=== PATIENT | male | born 1935 | race Two or more races ===

== ENCOUNTER 2019-01-23 23:19 | Inpatient (IN) | payer MEDICARE, OTHER ==
[~2019-01-23] VITALS: Ht 167.6 cm; Wt 56.7 kg
--- NOTE | 2019-01-23 23:55 | NUR ---
PT BIBRA FROM HOME FOR FLU LIKE SYMPTOMS. PER EMS, PT DX WITH UTI. PT AOX4. PT C/O SOB. PT ON MONITOR IN BED 4. GRANDSON AT BEDSIDE. WILL CONTINUE TO MONITOR.
--- NOTE | 2019-01-24 00:28 | NUR ---
LU[facility] ([facility]) [phone]
[2019-01-24] MEDS ORDERED: IPRATROPIUM NEB FS 0.5 MG/2.5 ML AMPUL.NEB NEB ONE (00:30)
[2019-01-24] MEDS ORDERED: ONDANSETRON HCL/PF - ER 4 MG/2 ML VIAL IV ONE (00:30)
[2019-01-24] MEDS ORDERED: ALBUTEROL FS 2.5 MG/3 ML VIAL.NEB NEB ONE (00:30)
[2019-01-24] MEDS ORDERED: ONDANSETRON HCL/PF 4 MG/2 ML VIAL ONE (00:33)
--- NOTE | 2019-01-24 00:49 | NUR ---
BLOOD DRAWN AND GIVEN TO LAB
--- NOTE | 2019-01-24 00:50 | NUR ---
TECH AT BEDSIDE FOR EKG
--- NOTE | 2019-01-24 00:52 | NUR ---
SHARI LEFT AND ASKED TO BE NOTIFIED ON ANY CHANGE OF CONDITION
[2019-01-24 00:55] LABS: BASOPHILS # (AUTO) 0.1 /CMM (0.0-0.2); BASOPHILS % (AUTO) 0.6 % (0.0-2.0); EOSINOPHILS % (AUTO) 4.9 % (0.0-6.0); HEMATOCRIT 33 % (39-51); LYMPHOCYTES # (AUTO) 1.1 /CMM (0.8-4.8); LYMPHOCYTES % (AUTO) 10.8 % (20.0-44.0); MEAN CORPUSCULAR HGB CONC 33 g/dl (31.0-36.0); MEAN CORPUSCULAR VOLUME 85 fL (80-96); MONOCYTES # (AUTO) 0.9 /CMM (0.1-1.30); MONOCYTES % (AUTO) 9.2 % (2.0-12.0); NEUTROPHILS # (AUTO) 7.5 /CMM (1.8-8.9); NEUTROPHILS % (AUTO) 74.5 % (43.0-81.0); PLATELET COUNT (AUTO) 207 /CMM (150-450); RED BLOOD CELL COUNT(AUTO) 3.93 MIL/uL (4.5-6.0); WHITE BLOOD COUNT (AUTO) 10.1 K/uL (4.3-11.0)
--- NOTE | 2019-01-24 00:55 | NUR ---
PT TAKEN TO RADIOLOGY VIA [facility]
[2019-01-24] MEDS ORDERED: IPRATROPIUM NEB FS 0.5 MG/2.5 ML AMPUL.NEB ONE (00:57)
[2019-01-24] MEDS ORDERED: ALBUTEROL FS 2.5 MG/3 ML VIAL.NEB ONE (00:57)
[2019-01-24 00:58] LABS: APPEARANCE,URINE Clear (CLEAR); BILIRUBIN,URINE Negative (NEGATIVE); BLOOD, URINE Negative Ery/uL (NEGATIVE); COLOR,URINE Yellow (YELLOW); KETONES,URINE Trace (NEGATIVE); LEUKOCYTE ESTERASE ,URINE Negative (NEGATIVE); NITRITE, URINE Negative (NEGATIVE); PROTEIN,URINE 30 mg/dl (NEGATIVE); UGLUCOSE Negative (NEGATIVE); UROBILINOGEN,URINE 0.2 EU/dL (0.2)
[2019-01-24 01:06] LABS: CALCIUM, SERUM 8.9 mg/dL (8.5-10.1); CARBON DIOXIDE 26 mmol/L (21-32); CHLORIDE 106 mmol/L (98-107); CREATININE 1.1 mg/dL (0.6-1.3); GLUCOSE 109 mg/dL (74-106); POTASSIUM 3.9 mmol/L (3.5-5.1); SODIUM SERUM 142 mmol/L (136-145); UREA NITROGEN, BLOOD 33 mg/dL (7-18)
--- NOTE | 2019-01-24 01:08 | NUR ---
PT RETURNED FROM CT. PT TOLERATED WELL.
[2019-01-24 01:12] LABS: ALANINE AMINOTRANSFERASE 46 U/L (12-78); ALBUMIN 3.6 g/dL (3.4-5.0); ALKALINE PHOSPHATASE 82 U/L (46-116); ASPARTATE AMINOTRANSFERASE 42 U/L (15-37); BILIRUBIN,TOTAL 0.2 mg/dL (0.2-1.0); TOTAL PROTEIN, SERUM 7.7 g/dL (6.4-8.2)
--- NOTE | 2019-01-24 01:12 | NUR ---
RT AT BEDSIDE FOR BREATHING TREATMENT
[2019-01-24 01:23] LABS: BACTERIA,URINE None seen /HPF (None Seen); MUCUS,URINE Few /LPF (None Seen); RBC,URINE 0-2 /HPF (0-2); SQUAMOUS EPITHELIAL CELL,UR Few /HPF (None Seen); WBC,URINE 0-2 /HPF (0-3)
[2019-01-24] MEDS ORDERED: IV NS 0.9% 1,000 ML BAG IV ONE (01:30)
[2019-01-24] MEDS ORDERED: LEVOFLOXACIN 750 MG /D5W 150ML PIGGYBACK IV ONE (04:00)
--- NOTE | 2019-01-24 04:12 | NUR ---
REPORT GIVEN TO BUTCH HILL FOR KARIN
[2019-01-24] MEDS ORDERED: LEVOFLOXACIN 750 MG /D5W 150ML 150 ML IV ONE (04:22)
[2019-01-24 05:30] VITALS: BP 151/72
[2019-01-24] MEDS ORDERED: ONDANSETRON HCL/PF 4 MG/2 ML VIAL IV PRN (06:30)
[2019-01-24] MEDS ORDERED: ACETAMINOPHEN 325 MG TABLET PO PRN (06:30)
--- NOTE | 2019-01-24 07:30 | NUR ---
RN NOTES: -AT 0405 RECEIVED ENDORSEMENT FROM EDWARD/RN/ER,RECEIVED ZOFRAN, N/S 1,000 ML,LEVAQUIN 750 MG, ATROVENT AND VENTOLIN. - ADMITTED 83 Y.O., MALE, ITALIAN SPEAKING, AT 0530 VIA GURNEY FROM HOME, WITH C/O FLU LIKE SYMPTOM X 3 DAYS AND PAINFUL URINATION X 1 WEEK, DX: COPD EXACERBATION, ON O2 AT 2L/MIN, SPO2-95% , A/O 3-4, ORIENTED TO UNIT AND STAFF, FALL,SAFETY AND ASPIRATION PRECAUTION OBSERVED, BED LOW AND LOCKED, CALL LIGHT WITHIN EASY REACH, ON CARDIAC DIET, IV CANNULA LAC G#20, FOR BLOOD TEST CBC,BMP, MG. WHEEZING NOTED ON BOTH UPPER LUNG FIELD, HE HAS SOB ON EXERTION.ENDORSED FOR CONTINUITY OF CARE.
[2019-01-24] MEDS: IPRATROPIUM NEB FS 0.5 MG/2.5 ML AMPUL.NEB NEB SCH ×3 (07:31→19:32)
[2019-01-24] MEDS: ALBUTEROL FS 2.5 MG/3 ML VIAL.NEB NEB SCH ×3 (07:31→19:32)
--- NOTE | 2019-01-24 07:35 | NUR ---
RN OPENING NOTES RECEIVED PATIENT IN BED SLEEPING COMFORTABLY. EASILY AROUSABLE. ALERT AND ORIENTED X3-4. MOHAWK SPEAKING. ABLE TO MAKE NEEDS KNOWN. NO PAIN OR ACUTE DISTRESS AT THIS TIME. RESPIRATION EVEN AND UNLABORED. NO SOB. SKIN IS DRY WARM TO TOUCH. IV ACCESS ON LEFT AC INTACT AND PATENT. FLUSHING WELL. ALL NEEDS ANTICIPATED. KEPT CLEAN AND DRY. CALL LIGHT WITHIN REACHED. SAFETY MEASURES OBSERVED. BED LOCKED AND IN LOWEST POSITION. PLAN OF CARE DISCUSSED. WILL CONTINUE TO MONITOR.
[2019-01-24 07:43] LABS: BASOPHILS % (AUTO) 0.6 % (0.0-2.0); EOSINOPHILS % (AUTO) 4.5 % (0.0-6.0); HEMATOCRIT 26 % (39-51); HEMOGLOBIN 8.8 g/dL (13.5-17.5); LYMPHOCYTES % (AUTO) 14.9 % (20.0-44.0); MEAN CORPUSCULAR HGB CONC 34 g/dl (31.0-36.0); MEAN CORPUSCULAR VOLUME 84 fL (80-96); MONOCYTES # (AUTO) 0.7 /CMM (0.1-1.30); MONOCYTES % (AUTO) 10.9 % (2.0-12.0); NEUTROPHILS # (AUTO) 4.5 /CMM (1.8-8.9); NEUTROPHILS % (AUTO) 69.1 % (43.0-81.0); PLATELET COUNT (AUTO) 156 /CMM (150-450); RED BLOOD CELL COUNT(AUTO) 3.11 MIL/uL (4.5-6.0); WHITE BLOOD COUNT (AUTO) 6.5 K/uL (4.3-11.0)
[2019-01-24] MEDS: methylPREDNISolone SOD SUCC 40 MG/ML VIAL IV SCH ×3 (07:45→21:01)
[2019-01-24 07:53] LABS: CALCIUM, SERUM 8.1 mg/dL (8.5-10.1); CARBON DIOXIDE 24 mmol/L (21-32); CHLORIDE 108 mmol/L (98-107); CREATININE 0.9 mg/dL (0.6-1.3); GLUCOSE 76 mg/dL (74-106); MAGNESIUM 1.6 mg/dL (1.8-2.4); POTASSIUM 3.8 mmol/L (3.5-5.1); SODIUM SERUM 141 mmol/L (136-145); UREA NITROGEN, BLOOD 27 mg/dL (7-18)
[2019-01-24 07:57] VITALS: BP 122/75
[2019-01-24 08:00] VITALS: BP 122/75
[2019-01-24] MEDS: PANTOPRAZOLE 40 MG TABLET.DR PO SCH (08:43)
[2019-01-24] MEDS: ENOXAPARIN SODIUM 40 MG/0.4 ML DISP.SYRIN SQ SCH (08:44)
[2019-01-24] MEDS ORDERED: GABA-534 PO (08:51)
[2019-01-24] MEDS ORDERED: MIRT30TA7 PO (08:51)
[2019-01-24] MEDS ORDERED: MEMA10TA PO (08:51)
[2019-01-24] MEDS ORDERED: ESCI10TA PO (08:51)
[2019-01-24] MEDS ORDERED: CYAN10006 IJ (08:51)
[2019-01-24] MEDS ORDERED: CHOL100040 PO (08:51)
[2019-01-24] MEDS ORDERED: ALBU18HF2 IH (08:51)
[2019-01-24] MEDS ORDERED: ALBU2SYR3 PO (08:51)
[2019-01-24] MEDS ORDERED: RANI150C4 PO (08:51)
[2019-01-24] MEDS ORDERED: LORA-259 PO (08:51)
[2019-01-24] MEDS ORDERED: MELO-105 PO (08:51)
[2019-01-24] MEDS ORDERED: TRAZ-182 PO (08:51)
[2019-01-24] MEDS ORDERED: UMEC1BLS IH (08:51)
[2019-01-24] MEDS ORDERED: MEGE40TA PO (08:51)
[2019-01-24] MEDS ORDERED: LORAZEPAM 1 MG TABLET PO PRN (10:30)
[2019-01-24] MEDS: Magnesium 1GM/D5W 100ML PREMIX 100 ML IV SCH ×2 (10:36→11:33)
[2019-01-24] MEDS: MELOXICAM 7.5 MG TABLET PO SCH (11:01)
[2019-01-24] MEDS: MEGESTROL ACETATE 40 MG TABLET PO SCH (11:01)
[2019-01-24] MEDS: ESCITALOPRAM OXALATE (10 MG) 10 MG TABLET PO SCH (11:02)
[2019-01-24] MEDS: MEMANTINE HCL 5 MG TABLET PO SCH (11:02)
[2019-01-24] MEDS: GABAPENTIN 300 MG CAPSULE PO SCH (11:02)
[2019-01-24] MEDS: CHOLECALCIFEROL 1,000 UNIT TABLET (VIT D3) PO SCH (11:02)
[2019-01-24] MEDS ORDERED: ALBUTEROL FS 2.5 MG/0.5 ML VIAL.NEB NEB PRN (13:30)
[2019-01-24 16:00] VITALS: BP 123/67
--- NOTE | 2019-01-24 18:26 | NUR ---
RN CLOSING NOTES PATIENT IN BED RESTING COMFORTABLY. PATIENT ABLE TO TOLERATE MEALS AND MEDS WELL. NO PAIN OR ACUTE DISTRESS AT THIS TIME. RESPIRATION EVEN AND UNLABORED. SKIN IS DRY WARM TO TOUCH. IV ACCESS ON LEFT FOREARM INTACT AND PATENT. PATIENT REMAINED STABLE THROUGHOUT THE SHIFT. ALL NEEDS ANTICIPATED. KEPT CLEAN AND DRY. CALL LIGHT WITHIN REACHED. BED LOCKED AND IN LOWEST POSITION. SAFETY MEASURES OBSERVED. ENDORSED TO PM NURSE FOR KARIN.
--- NOTE | 2019-01-24 19:45 | NUR ---
MS1 RN NOTES RECEIVED ON BED ON SITTING POSITION,BREATHING NON LABORED,O2 IN USED AT 2L/NC TO KEEP O2 SAT ABOVE 90%.SALINE LOCK LEFT FORE ARM INTACT AND PATENT.SPEAK BOLIVIAN,FAMILY MEMBERS AT BEDSIDE.RT AT BEDSIDE ADMINISTERING BREATHING TREATMENT SCHEDULED.IN NO ACUTE DISTRESS.WILL CONTINUE TO MONITOR STATUS.
[2019-01-24 20:00] VITALS: BP 130/66
--- NOTE | 2019-01-24 21:00 | NUR ---
MS1 RN NOTES DUE PO MEDS GIVEN,TAKEN WELL
[2019-01-24] MEDS: FAMOTIDINE (20 MG) 20 MG TABLET PO SCH (21:02)
[2019-01-24] MEDS: TRAZODONE 50 MG TABLET PO SCH (22:07)
--- NOTE | 2019-01-25 | NUR ---
MS1 RN NOTES SLEEPING THIS TIME,KEPT WARM AND COMFORTABLE.
[2019-01-25] MEDS: IPRATROPIUM NEB FS 0.5 MG/2.5 ML AMPUL.NEB NEB SCH ×4 (01:56→19:52)
[2019-01-25] MEDS: ALBUTEROL FS 2.5 MG/3 ML VIAL.NEB NEB SCH ×4 (01:57→19:52)
[2019-01-25 04:00] VITALS: BP 115/70
[2019-01-25] MEDS: methylPREDNISolone SOD SUCC 40 MG/ML VIAL IV SCH ×3 (05:10→21:23)
[2019-01-25] MEDS: LEVOFLOXACIN 750 MG /D5W 150ML 750 MG in PREMIX 1 EA IV SCH (06:15)
--- NOTE | 2019-01-25 06:34 | NUR ---
MS 1 RN NOTES TRANSFERRED TO ROOM 109 TO ACCOMMODATE FAMILY MEMBER.NO SIGNIFICANT CHANGE IN STATUS.BREATHING TREATMENT TOLERATED WELL.NO EPISODE OF SOB NOTED.IVF LEVAQUIN INFUSING AT THIS TIME VIA IV PUMP,SITE REMAINS PATENT.NO FALL,NO INJURY.CALL LIGHT IN REACH,NEEDS ATTENDED.WILL ENDORSE TO DAY NURSE FOR KARIN.
[2019-01-25 08:00] VITALS: BP 135/61
[2019-01-25] MEDS: FLUTICASONE/VILANTEROL 1 EACH BLST.W.DEV IH SCH (09:29)
[2019-01-25] MEDS: ESCITALOPRAM OXALATE (10 MG) 10 MG TABLET PO SCH (09:32)
[2019-01-25] MEDS: GABAPENTIN 300 MG CAPSULE PO SCH (09:32)
[2019-01-25] MEDS: MEGESTROL ACETATE 40 MG TABLET PO SCH (09:32)
[2019-01-25] MEDS: PANTOPRAZOLE 40 MG TABLET.DR PO SCH (09:32)
[2019-01-25] MEDS: MIRTAZAPINE 15 MG TABLET PO SCH (09:32)
[2019-01-25] MEDS: FAMOTIDINE (20 MG) 20 MG TABLET PO SCH ×2 (09:32→21:23)
[2019-01-25] MEDS: MEMANTINE HCL 5 MG TABLET PO SCH (09:32)
[2019-01-25] MEDS: MELOXICAM 7.5 MG TABLET PO SCH (09:32)
[2019-01-25] MEDS: CHOLECALCIFEROL 1,000 UNIT TABLET (VIT D3) PO SCH (09:32)
[2019-01-25] MEDS: ENOXAPARIN SODIUM 40 MG/0.4 ML DISP.SYRIN SQ SCH (09:33)
[2019-01-25 10:38] LABS: BASOPHILS % (AUTO) 0.1 % (0.0-2.0); HEMATOCRIT 28 % (39-51); HEMOGLOBIN 9.5 g/dL (13.5-17.5); LYMPHOCYTES % (AUTO) 9.6 % (20.0-44.0); MEAN CORPUSCULAR HGB CONC 34 g/dl (31.0-36.0); MEAN CORPUSCULAR VOLUME 84 fL (80-96); MONOCYTES # (AUTO) 0.9 /CMM (0.1-1.30); MONOCYTES % (AUTO) 9.4 % (2.0-12.0); NEUTROPHILS % (AUTO) 80.9 % (43.0-81.0); PLATELET COUNT (AUTO) 168 /CMM (150-450); RED BLOOD CELL COUNT(AUTO) 3.35 MIL/uL (4.5-6.0); WHITE BLOOD COUNT (AUTO) 9.9 K/uL (4.3-11.0)
[2019-01-25 10:47] LABS: CALCIUM, SERUM 8.5 mg/dL (8.5-10.1); CARBON DIOXIDE 25 mmol/L (21-32); CHLORIDE 105 mmol/L (98-107); CREATININE 0.9 mg/dL (0.6-1.3); GLUCOSE 105 mg/dL (74-106); POTASSIUM 4.2 mmol/L (3.5-5.1); SODIUM SERUM 138 mmol/L (136-145); UREA NITROGEN, BLOOD 30 mg/dL (7-18)
[2019-01-25 12:00] VITALS: BP 123/70
[2019-01-25 16:00] VITALS: BP 113/64
--- NOTE | 2019-01-25 19:20 | NUR ---
MS RN NOTE PATIENT REPORT GIVEN BEDSIDE. PATIENT DENIES ANY S/S OF DISTRESS. NO C/P/SOB//PAIN NOTED. PATIENT SITTING UP IN BED A/0 X 4. PATIENT WATCHING TV. PATIENT HAS NO REQUESTS AT THIS TIME. SAEFTY PRECAUTIONS IN PLACE SIDE RAILS UP X 2, BED LOWEST LOCKED POSITION. RN WILL CONTINUE TO MONITOR FOR CHANGES.
[2019-01-25 20:00] VITALS: BP 143/82
[2019-01-25] MEDS: TRAZODONE 50 MG TABLET PO SCH (21:23)
[2019-01-26] VITALS: BP 135/70
[2019-01-26] MEDS: IPRATROPIUM NEB FS 0.5 MG/2.5 ML AMPUL.NEB NEB SCH ×4 (01:30→19:48)
[2019-01-26] MEDS: ALBUTEROL FS 2.5 MG/3 ML VIAL.NEB NEB SCH ×4 (01:30→19:48)
--- NOTE | 2019-01-26 02:12 | NUR ---
PT REFUSED Addendum: 01/26/19 at 0213 by STEVO JIMENEZ Amended: Links added.
--- NOTE | 2019-01-26 02:50 | NUR ---
MS RN NOTE BOTH PT IV SITES LEAKING, 22 G IN L HAND/ 20 G IN RFA, PLACED A NEW IV 20 G IN EFRA. NO S/S OF INFECTION/INFILTRATION.
[2019-01-26] MEDS: methylPREDNISolone SOD SUCC 40 MG/ML VIAL IV SCH ×3 (05:09→20:33)
[2019-01-26 06:47] LABS: BASOPHILS % (AUTO) 0.1 % (0.0-2.0); HEMATOCRIT 31 % (39-51); HEMOGLOBIN 10.2 g/dL (13.5-17.5); LYMPHOCYTES # (AUTO) 0.6 /CMM (0.8-4.8); LYMPHOCYTES % (AUTO) 7.3 % (20.0-44.0); MEAN CORPUSCULAR HGB CONC 33 g/dl (31.0-36.0); MEAN CORPUSCULAR VOLUME 84 fL (80-96); MONOCYTES # (AUTO) 0.1 /CMM (0.1-1.30); MONOCYTES % (AUTO) 1.3 % (2.0-12.0); NEUTROPHILS % (AUTO) 91.3 % (43.0-81.0); PLATELET COUNT (AUTO) 174 /CMM (150-450); RED BLOOD CELL COUNT(AUTO) 3.64 MIL/uL (4.5-6.0); WHITE BLOOD COUNT (AUTO) 7.6 K/uL (4.3-11.0)
--- NOTE | 2019-01-26 07:30 | NUR ---
MS/RN OPENING NOTE THE PATIENT IS RECEIVED IN BED. ALERT AND ORIENTED X3. ABLE TO MAKE NEEDS KNOWN VERBALLY. RECEIVING OXYGEN AT 2L/MIN VIA NASAL CANNULA AND DENIES SOB. RESPIRATION REGULAR AND UNLABORED. DENIES PAIN. THE PATIENT IS IN NO APPARENT DISTRESS. LFA G 22 PATENT AND SALINE LOCKED. BED LOW AND LOCKED. SIDE RAILS UP X3. CALL LIGHT WITHIN REACH. WILL CONTINUE TO MONITOR.
[2019-01-26 08:00] VITALS: BP 123/71
--- NOTE | 2019-01-26 08:11 | NUR ---
MS/RN NOTE PATIENT IS SEEN BY DR VARGAS WITH NEW ORDER FOR RESTORIL 15 MG HS PRN. NOTED AND CARRIED OUT.
[2019-01-26 08:26] LABS: CARBON DIOXIDE 26 mmol/L (21-32); CHLORIDE 103 mmol/L (98-107); CREATININE 1.2 mg/dL (0.6-1.3); GLUCOSE 132 mg/dL (74-106); POTASSIUM 4.6 mmol/L (3.5-5.1); SODIUM SERUM 139 mmol/L (136-145); UREA NITROGEN, BLOOD 37 mg/dL (7-18)
[2019-01-26] MEDS: MEMANTINE HCL 5 MG TABLET PO SCH (08:29)
[2019-01-26] MEDS: MEGESTROL ACETATE 40 MG TABLET PO SCH (08:29)
[2019-01-26] MEDS: GABAPENTIN 300 MG CAPSULE PO SCH (08:29)
[2019-01-26] MEDS: CHOLECALCIFEROL 1,000 UNIT TABLET (VIT D3) PO SCH (08:29)
[2019-01-26] MEDS: FLUTICASONE/VILANTEROL 1 EACH BLST.W.DEV IH SCH (08:29)
[2019-01-26] MEDS: PANTOPRAZOLE 40 MG TABLET.DR PO SCH (08:30)
[2019-01-26] MEDS: FAMOTIDINE (20 MG) 20 MG TABLET PO SCH ×2 (08:30→20:34)
[2019-01-26] MEDS: MELOXICAM 7.5 MG TABLET PO SCH (08:30)
[2019-01-26] MEDS: MIRTAZAPINE 15 MG TABLET PO SCH (08:30)
[2019-01-26] MEDS ORDERED: TEMAZEPAM 15 MG CAPSULE PO PRN (08:30)
[2019-01-26] MEDS: ESCITALOPRAM OXALATE (10 MG) 10 MG TABLET PO SCH (08:30)
[2019-01-26] MEDS: ENOXAPARIN SODIUM 40 MG/0.4 ML DISP.SYRIN SQ SCH (08:42)
[2019-01-26 16:00] VITALS: BP_SYST 134; BP_SYST 99; BP_DIAS 72; BP_DIAS 82
--- NOTE | 2019-01-26 16:28 | NUR ---
MS/RN NOTE PER PATIENT REQUEST DIET TE[facility] PER DR VARGAS ORDER. NOTED AND CARRIED OUT.
[2019-01-26 16:58] VITALS: BP 103/72
--- NOTE | 2019-01-26 18:32 | NUR ---
MS/RN CLOSING NOTE THE PATIENT ALERT AND ORIENTED X3. RECEIVING OXYGEN 2L/MIN VIA NASAL CANNULA AND SATURATION IS AT 95%. DENIES SOB. RESPIRATION REGULAR AND UNLABORED. DENIES PAIN. THE PATIENT IS IN NO APPARENT DISTRESS. LFA G 22 PATENT AND SALINE LOCKED. BED LOW AND LOCKED. SIDE RAILS UP X3. CALL LIGHT WITHIN REACH. BED ALARM ON. WILL ENDORSE TO PORTABLE MACHINE CUTTER.
--- NOTE | 2019-01-26 19:48 | NUR ---
MS RN NOTES RECEIVED PATIENT AWAKE IN BED WITH NO DISTRESS NOTED. CALL LIGHT WITHIN REACH. PERIPHERAL LINE INTACT AND PATENT. NO C/O PAIN OR DISCOMFORT. ENCOURAGED USE OF CALL LIGHT FOR ASSISTANCE AND VERBALIZED GOOD UNDERSTANDING. BED IN LOW LOCK SETTING. BED ALARM ON AND FUNCTIONING PROPERLY. ROOM FREE OF CALL LIGHT AND BELONGINGS KEPT NEAR BEDSIDE. WILL CONTINUE TO MONITOR.
[2019-01-26 20:00] VITALS: BP 110/59
[2019-01-26] MEDS: TRAZODONE 50 MG TABLET PO SCH (21:08)
[2019-01-27] VITALS: BP 110/59
[2019-01-27] MEDS: ALBUTEROL FS 2.5 MG/3 ML VIAL.NEB NEB SCH ×4 (01:30→19:06)
[2019-01-27] MEDS: IPRATROPIUM NEB FS 0.5 MG/2.5 ML AMPUL.NEB NEB SCH ×4 (01:30→19:06)
[2019-01-27 04:00] VITALS: BP 103/57
[2019-01-27] MEDS: methylPREDNISolone SOD SUCC 40 MG/ML VIAL IV SCH ×3 (06:02→20:27)
[2019-01-27] MEDS: LEVOFLOXACIN 750 MG /D5W 150ML 750 MG in PREMIX 1 EA IV SCH (06:02)
--- NOTE | 2019-01-27 06:24 | NUR ---
MS RN NOTES PATIENT ASLEEP IN BED WITH NO DISTRESS NOTED. CALL LIGHT WITHIN REACH. PERIPHERAL LINE INTACT AND PATENT. ALL DUE MEDS GIVEN ORDERED WITH NO ASE NOTED. NO C/O PAIN OR DISCOMFORT. BED IN LOW LOCK SETTING. BED ALARM ON AND FUNCTIONING PROPERLY. ALL BELONGINGS KEPT NEAR BEDSIDE. WILL ENDORSE TO ONCOMING SHIFT.
[2019-01-27 07:27] LABS: BASOPHILS % (AUTO) 0.1 % (0.0-2.0); HEMATOCRIT 31 % (39-51); HEMOGLOBIN 10.1 g/dL (13.5-17.5); LYMPHOCYTES # (AUTO) 0.5 /CMM (0.8-4.8); LYMPHOCYTES % (AUTO) 4.2 % (20.0-44.0); MEAN CORPUSCULAR HGB CONC 33 g/dl (31.0-36.0); MEAN CORPUSCULAR VOLUME 84 fL (80-96); MONOCYTES # (AUTO) 0.5 /CMM (0.1-1.30); NEUTROPHILS # (AUTO) 11.8 /CMM (1.8-8.9); NEUTROPHILS % (AUTO) 91.7 % (43.0-81.0); PLATELET COUNT (AUTO) 191 /CMM (150-450); RED BLOOD CELL COUNT(AUTO) 3.64 MIL/uL (4.5-6.0); WHITE BLOOD COUNT (AUTO) 12.8 K/uL (4.3-11.0)
--- NOTE | 2019-01-27 07:46 | NUR ---
MS RN NOTES RECEIVED PATIENT AWAKE,SITTING IN BED WITH NO SOB,PAIN OR DISTRESS NOTED.PERIPHERAL LINE INTACT AND PATENT. NO C/O PAIN OR DISCOMFORT. ENCOURAGED USE OF CALL LIGHT FOR ASSISTANCE AND VERBALIZED GOOD UNDERSTANDING. BED IN LOW LOCK SETTING. BED ALARM ON AND FUNCTIONING PROPERLY. CALL LIGHT PLACED WITHIN REACH.WILL CONTINUE TO MONITOR.
[2019-01-27 08:00] VITALS: BP 123/96
[2019-01-27] MEDS: MELOXICAM 7.5 MG TABLET PO SCH (08:21)
[2019-01-27] MEDS: MEMANTINE HCL 5 MG TABLET PO SCH (08:21)
[2019-01-27] MEDS: CHOLECALCIFEROL 1,000 UNIT TABLET (VIT D3) PO SCH (08:21)
[2019-01-27] MEDS: MIRTAZAPINE 15 MG TABLET PO SCH (08:21)
[2019-01-27] MEDS: PANTOPRAZOLE 40 MG TABLET.DR PO SCH (08:21)
[2019-01-27] MEDS: FAMOTIDINE (20 MG) 20 MG TABLET PO SCH ×2 (08:21→20:28)
[2019-01-27] MEDS: GABAPENTIN 300 MG CAPSULE PO SCH (08:21)
[2019-01-27] MEDS: MEGESTROL ACETATE 40 MG TABLET PO SCH (08:21)
[2019-01-27] MEDS: ESCITALOPRAM OXALATE (10 MG) 10 MG TABLET PO SCH (08:21)
[2019-01-27] MEDS: ENOXAPARIN SODIUM 40 MG/0.4 ML DISP.SYRIN SQ SCH (08:22)
[2019-01-27] MEDS: FLUTICASONE/VILANTEROL 1 EACH BLST.W.DEV IH SCH (08:23)
[2019-01-27 16:00] VITALS: BP 119/73
--- NOTE | 2019-01-27 19:00 | NUR ---
PT SITTING IN BED DENYING ANY SOB, PAIN OR DISTRESS.CALL LIGHT PLACED WITHIN REACH.
--- NOTE | 2019-01-27 19:10 | NUR ---
MS RN OPENING NOTES Received patient A/Ox3, awake on Gardner's position on bed watching TV. With O2 inhalation via NC @ 2LPM, no SOB/respiratory distress noted. Patient able to communicate needs, denies discomfort at this time. With patent peripheral IV line LFA G#22, SL, no s/sx of infiltration noted. On fall precautions, call light within easy reach. Will continue to monitor accordingly.
[2019-01-27 20:00] VITALS: BP 119/75
[2019-01-27] MEDS: TRAZODONE 50 MG TABLET PO SCH (22:00)
[2019-01-28] MEDS: ALBUTEROL FS 2.5 MG/3 ML VIAL.NEB NEB SCH ×4 (00:56→19:55)
[2019-01-28] MEDS: IPRATROPIUM NEB FS 0.5 MG/2.5 ML AMPUL.NEB NEB SCH ×4 (00:57→19:55)
[2019-01-28 04:00] VITALS: BP 120/69
[2019-01-28] MEDS: methylPREDNISolone SOD SUCC 40 MG/ML VIAL IV SCH ×3 (05:10→21:20)
--- NOTE | 2019-01-28 07:07 | NUR ---
MS RN CLOSING NOTES Patient asleep comfortably on bed. No SOB/respiratory distress noted. All due meds given as ordered. No new unusualities noted. Afebrile the whole shift. On fall precautions. Call light within easy reach. Endorsed to the next shift.
[2019-01-28 08:00] VITALS: BP 140/80
[2019-01-28] MEDS: GABAPENTIN 300 MG CAPSULE PO SCH (09:38)
[2019-01-28] MEDS: MEGESTROL ACETATE 40 MG TABLET PO SCH (09:38)
[2019-01-28] MEDS: ESCITALOPRAM OXALATE (10 MG) 10 MG TABLET PO SCH (09:38)
[2019-01-28] MEDS: PANTOPRAZOLE 40 MG TABLET.DR PO SCH (09:38)
[2019-01-28] MEDS: MEMANTINE HCL 5 MG TABLET PO SCH (09:40)
[2019-01-28] MEDS: MELOXICAM 7.5 MG TABLET PO SCH (09:41)
[2019-01-28] MEDS: MIRTAZAPINE 15 MG TABLET PO SCH (09:41)
[2019-01-28] MEDS: FAMOTIDINE (20 MG) 20 MG TABLET PO SCH ×2 (09:42→21:21)
[2019-01-28] MEDS: ENOXAPARIN SODIUM 40 MG/0.4 ML DISP.SYRIN SQ SCH (09:44)
[2019-01-28] MEDS: CHOLECALCIFEROL 1,000 UNIT TABLET (VIT D3) PO SCH (10:07)
[2019-01-28 12:00] VITALS: BP 118/61
[2019-01-28] MEDS: FLUTICASONE/VILANTEROL 1 EACH BLST.W.DEV IH SCH (12:33)
[2019-01-28 16:00] VITALS: BP 118/80
--- NOTE | 2019-01-28 16:52 | NUR ---
resting comfortably with call light within reach.no complaints made .voidimg freel;y
--- NOTE | 2019-01-28 19:30 | NUR ---
RN OPEN NOTES RECEIVED PATIENT AWAKE IN BED. A/OX3. NO SIGNS OF DISTRESS OR DISCOMFORT. BREATHING EVEN AND UNLABORED. ON 2LPM O2 VIA NC. IV ACCESS IN LFA WITH LEVAQUIN INFUSING, PATENT AND INTACT, NO SIGNS OF REDNESS OR INFILTRATION. ALL NEEDS MET. NO SIGNIFICANT CHANGES THROUGH THE NIGHT. BED IN LOW LOCKED POSITION WITH SIDE RAILS X2. CALL LIGHT WITHIN REACH. PATIENT ADVISED TO USE CALL LIGHT FOR ASSISTANCE. WILL ENDORSE TO AM SHIFT FOR KARIN.
[2019-01-28 20:00] VITALS: BP 143/73
[2019-01-28] MEDS: TRAZODONE 50 MG TABLET PO SCH (21:21)
[2019-01-29] MEDS: ALBUTEROL FS 2.5 MG/3 ML VIAL.NEB NEB SCH ×4 (01:12→20:16)
[2019-01-29] MEDS: IPRATROPIUM NEB FS 0.5 MG/2.5 ML AMPUL.NEB NEB SCH ×4 (01:12→20:16)
[2019-01-29 04:00] VITALS: BP 138/62
[2019-01-29] MEDS: methylPREDNISolone SOD SUCC 40 MG/ML VIAL IV SCH ×3 (05:37→21:17)
[2019-01-29] MEDS: LEVOFLOXACIN 750 MG /D5W 150ML 750 MG in PREMIX 1 EA IV SCH (05:37)
--- NOTE | 2019-01-29 07:30 | NUR ---
RN OPENING NOTES RECEIVED PATIENT IN BED. PATIENT AWAKE AND ABLE TO MAKE NEEDS KNOWN. PATIENT ALERT AND ORIENTED X4. RESPIRATION EVEN AND UNLABORED. ON O2 VIA NASAL CANNULA. TOLERATED WELL. NO SOB. NO PAIN OR ACUTE DISTRESS AT THIS TIME. SKIN INTACT. NOTED WITH IV ACCESS ON LEFT FOREARM #22G. PATENT AND FLUSHING WELL. ALL NEEDS ANTICIPATED. KEPT CLEAN AND DRY. CALL LIGHT WITHIN REACHED. BED LOCKED AND IN LOWEST POSITION. SAFETY MEASURES OBSERVED. BED ALARM ARMED. GENE OF CARE DISCUSSED. WILL CONTINUE TO MONITOR CLOSELY.
[2019-01-29 08:00] VITALS: BP 139/74
[2019-01-29] MEDS: FLUTICASONE/VILANTEROL 1 EACH BLST.W.DEV IH SCH (08:13)
[2019-01-29] MEDS: FAMOTIDINE (20 MG) 20 MG TABLET PO SCH ×2 (08:14→21:18)
[2019-01-29] MEDS: ESCITALOPRAM OXALATE (10 MG) 10 MG TABLET PO SCH (08:14)
[2019-01-29] MEDS: MIRTAZAPINE 15 MG TABLET PO SCH (08:14)
[2019-01-29] MEDS: PANTOPRAZOLE 40 MG TABLET.DR PO SCH (08:14)
[2019-01-29] MEDS: CHOLECALCIFEROL 1,000 UNIT TABLET (VIT D3) PO SCH (08:14)
[2019-01-29] MEDS: GABAPENTIN 300 MG CAPSULE PO SCH (08:15)
[2019-01-29] MEDS: MELOXICAM 7.5 MG TABLET PO SCH (08:15)
[2019-01-29] MEDS: MEGESTROL ACETATE 40 MG TABLET PO SCH (08:15)
[2019-01-29] MEDS: MEMANTINE HCL 5 MG TABLET PO SCH (08:15)
[2019-01-29] MEDS: ENOXAPARIN SODIUM 40 MG/0.4 ML DISP.SYRIN SQ SCH (08:17)
[2019-01-29 16:00] VITALS: BP 114/71
--- NOTE | 2019-01-29 18:28 | NUR ---
RN CLOSING NOTES PATIENT IN BED AWAKE AND ABLE TO MAKE NEEDS KNOWN. PATIENT IS A/O X4. NO PAIN OR ACUTE DISTRESS AT THIS TIME. RESPIRATION EVEN AND UNLABORED. SKIN IS DRY WARM TO TOUCH. IV ACCESS ON LEFT FOREARM #22G INTACT AND PATENT. FLUSHING WELL. PATIENT WAS INFORMED ABOUT THE EGD ORDER FOR TOMORROW FROM DR. HILL. PATIENT WAS ABLE TO UNDERSTAND THE PROCEDURE AND SIGNED THE CONSENT FORM. SIGNED CONSENT FORM PLACE IN THE CHART THAT CHARGE NURSE CO-SIGNED. PATIENT WAS ALSO INFORMED ABOUT BEING NPO AFTER MIDNIGHT. PATIENT WAS ABLE TO UNDERSTAND. ALL NEEDS ANTICIPATED. KEPT CLEAN AND DRY. CALL LIGHT WITHIN REACHED. BED LOCKED AND IN LOWEST POSITION. BED ALARM ARMED. WILL CONTINUE TO MONITOR. ENDORSED TO PM NURSE FOR KARIN.
--- NOTE | 2019-01-29 19:49 | NUR ---
MS RN RECEIVE PT IN BED A/O X 3, RESPIRATIONS EVEN AND UNLABORED,STABLE, NO S/S OF DISTRESS, SAFETY MEASURES IN PLACE. WILL CONTINUE TO MONITOR
[2019-01-29 20:00] VITALS: BP 130/79
[2019-01-29] MEDS: TRAZODONE 50 MG TABLET PO SCH (21:17)
[2019-01-30] MEDS: ALBUTEROL FS 2.5 MG/3 ML VIAL.NEB NEB SCH ×4 (01:30→19:30)
[2019-01-30] MEDS: IPRATROPIUM NEB FS 0.5 MG/2.5 ML AMPUL.NEB NEB SCH ×4 (01:30→19:30)
[2019-01-30 04:00] VITALS: BP 121/62
[2019-01-30] MEDS: methylPREDNISolone SOD SUCC 40 MG/ML VIAL IV SCH ×2 (04:40→12:47)
--- NOTE | 2019-01-30 06:31 | NUR ---
MS RN ASLEEP AND EASILY AWAKEN, RESPIRATION EVEN AND UNLABORED, MAINTAINS NPO MIDNIGHT, NO C/O OF PAIN. KEPT CLEAN AND DRY AND COMFORTABLE. NEEDS ATTENDED AND ANTICIPATED, NURSING CARE RENDERED, OFFLOAD HEELS AND ELBOWS AT ALL TIMES. STABLE AND NO DISTRESS, NO ANESTHESIA SIGNED PT WANTS TO SIGN LATER AM BECAUSE HE SAID HE IS SLEEPING AND WANTED TO REST. SAFETY MEASURES AT ALL TIMES. ENDORSE TO THE NEXT SHIFT.
[2019-01-30 08:00] VITALS: BP 123/62
[2019-01-30] MEDS: MELOXICAM 7.5 MG TABLET PO SCH (09:00)
[2019-01-30] MEDS: PANTOPRAZOLE 40 MG TABLET.DR PO SCH (09:00)
[2019-01-30] MEDS: CHOLECALCIFEROL 1,000 UNIT TABLET (VIT D3) PO SCH (09:00)
[2019-01-30] MEDS: MIRTAZAPINE 15 MG TABLET PO SCH (09:00)
[2019-01-30] MEDS: FAMOTIDINE (20 MG) 20 MG TABLET PO SCH (09:00)
[2019-01-30] MEDS: FLUTICASONE/VILANTEROL 1 EACH BLST.W.DEV IH SCH (09:00)
[2019-01-30] MEDS: ESCITALOPRAM OXALATE (10 MG) 10 MG TABLET PO SCH (09:00)
[2019-01-30] MEDS: MEGESTROL ACETATE 40 MG TABLET PO SCH (09:00)
[2019-01-30] MEDS: MEMANTINE HCL 5 MG TABLET PO SCH (09:00)
[2019-01-30] MEDS: ENOXAPARIN SODIUM 40 MG/0.4 ML DISP.SYRIN SQ SCH (09:00)
[2019-01-30] MEDS: GABAPENTIN 300 MG CAPSULE PO SCH (09:00)
--- NOTE | 2019-01-30 10:45 | NUR ---
received report. will continue to monitor.
--- NOTE | 2019-01-30 12:00 | NUR ---
Resume previous diet per Dr. Sheppard.
--- NOTE | 2019-01-30 13:15 | NUR ---
Patient tolerated food well. No N/V, denies pain
[2019-01-30 16:00] VITALS: BP 120/76
--- NOTE | 2019-01-30 17:00 | NUR ---
Patient cleared for d/c by MD. All discharge paperwork prepared including prescription and med reconciliation.Patient reused to take d/c pictures. Patient will be picked up by family member from 7-8pm. Will endorse to next shift .
--- NOTE | 2019-01-30 19:00 | NUR ---
RN MS OPENING NOTES RECEIVED PATIENT IN BED AWAKE ALERT AND ORIENTED X4, ABLE TO MAKE SIMPLE NEEDS KNOWN, RESPIRATIONS EVEN AND UNLABORED WITH EQUAL RISE AND FALL OF CHEST, DENIES ANY PAIN OR DISCOMFORT AT THIS TIME, LEFT FA #22 G INTACT AND PATENT, NO REDNESS, NO INFILTRATION PRESENT, ORIENTED TO STAFF AND CALL LIGHT AND KEPT WITHIN REACH, SAFETY PRECAUTIONS IN PLACE, LOW BED AND LOCKED, PATIENT IS SCHEDULED FOR DISCHARGE HOME AWAITING FOR GRANDSON FOR [facility], WILL CONTINUE TO ADDRESS NEEDS. PATIENT REMAINS COMFORTABLE AT THIS TIME.
[2019-01-30 20:00] VITALS: BP 151/81
--- NOTE | 2019-01-30 20:00 | NUR ---
RN MS NOTES PATIENT RESPONSIBLE LIBERTARIAN LUIS MCCARTHY HERE TO KEY ACCOUNT MANAGER PATIENT PHONE NUMBER [phone], DISCHARGED/PLAN OF CARE DISCUSSED WITH LUIS AND PATIENT, JAMEEYOBANI SIGNED DISCHARGE PAPERWORK, DISCHARGED TO HOME PER FAMILY WILL HAVE HOME HEALTH AT HOME, TRANSPORTATION PROVIDED BY [facility] PERSONAL CAR, PRESCRIPTIONS GIVEN, DISCHARGE COPIES AND INSTRUCTIONS GIVEN IV AND ID BAND REMOVED, BELONGINGS LIST DONE, PATIENT SAFELY DISCHARGED VIA W/C ACCOMPANIED BY STAFF WHEN DISCHARGED LEFT IN STABLE CONDITION.
== END 2019-01-30 20:00 | disposition home health service (06) | DRG 140 ==
LOC: ER 23:33 → TELE1 01-24 04:07 → MEDSG1 01-24 10:12
PROVIDERS: ADMIT Legal Medicine; ATTEND Legal Medicine
PROC: 0DJ08ZZ Inspection of Upper Intestinal Tract, Via Natural or Artificial Opening Endoscopic (ICD-10-PCS; principal; 2019-01-30)
DX: J44.1 Chronic obstructive pulmonary disease with (acute) exacerbation (principal); J96.01 Acute respiratory failure with hypoxia; F03.90 Unspecified dementia, unspecified severity, without behavioral disturbance, psychotic disturbance, mood disturbance, and anxiety; I10 Essential (primary) hypertension; K21.9 Gastro-esophageal reflux disease without esophagitis; K57.30 Diverticulosis of large intestine without perforation or abscess without bleeding; K44.9 Diaphragmatic hernia without obstruction or gangrene; R10.9 Unspecified abdominal pain; K22.2 Esophageal obstruction; R13.10 Dysphagia, unspecified; R63.4 Abnormal weight loss; Z68.20 Body mass index [BMI] 20.0-20.9, adult; N40.0 Benign prostatic hyperplasia without lower urinary tract symptoms; M19.90 Unspecified osteoarthritis, unspecified site
CPT/HCPCS: 36415; 71045-TC; 71250-TC; 80048-TC; 80076-TC; 81000-TC; 83605-TC; 83735-TC; 84484-TC; 85025-TC; 85730-TC; 87040-TC; 87081-TC; 87086-TC; 94799-TC; 97112-TC; 97116-TC; 97530-TC; A4216; G0378; J1650; J1956; J2405; J2920; J3475; J3490; J7030

== ENCOUNTER 2019-02-17 18:22 | Inpatient (IN) | payer OTHER, MEDICARE ==
[~2019-02-17] VITALS: Ht 180.3 cm; Wt 57.8 kg
[~2019-02-17 18:22] MED LIST: ALBU18HF2 IH; ALBU2SYR3 PO; CHOL100040 PO; CYAN10006 IJ; ESCI10TA PO; GABA-534 PO; LORA-259 PO; MEGE40TA PO; MELO-105 PO; MEMA10TA PO; MIRT30TA7 PO; RANI150C4 PO; TRAZ-182 PO; UMEC1BLS IH
[2019-02-17] MEDS ORDERED: AZITHROMYCIN 500 MG in IV D5W 250 ML IV ONE (19:00)
[2019-02-17] MEDS ORDERED: IBUPROFEN 600 MG TABLET PO ONE ×2 (19:00→19:20)
[2019-02-17] MEDS ORDERED: methylPREDNISolone SOD SUCC 125 MG/2ML VIAL IV ONE (19:00)
[2019-02-17] MEDS ORDERED: IPRATROPIUM NEB FS 0.5 MG/2.5 ML AMPUL.NEB NEB ONE (19:00)
[2019-02-17] MEDS ORDERED: ALBUTEROL FS 2.5 MG/3 ML VIAL.NEB CONTNEB ONE (19:00)
[2019-02-17] MEDS ORDERED: CEFTRIAXONE 1GM BAG (ER ONLY) 50 ML IV ONE (19:00)
[2019-02-17] MEDS ORDERED: ALBUTEROL FS 2.5 MG/3 ML VIAL.NEB ONE (19:11)
[2019-02-17] MEDS ORDERED: IPRATROPIUM NEB FS 0.5 MG/2.5 ML AMPUL.NEB ONE (19:11)
[2019-02-17] MEDS ORDERED: AZITHROMYCIN 500 MG VIAL ONE (19:14)
[2019-02-17] MEDS ORDERED: methylPREDNISolone SOD SUCC 125 MG/2ML VIAL ONE (19:20)
[2019-02-17 19:26] LABS: BASOPHILS # (AUTO) 0.1 /CMM (0.0-0.2); BASOPHILS % (AUTO) 0.8 % (0.0-2.0); EOSINOPHILS % (AUTO) 6.8 % (0.0-6.0); HEMATOCRIT 28 % (39-51); HEMOGLOBIN 9.2 g/dL (13.5-17.5); LYMPHOCYTES # (AUTO) 0.9 /CMM (0.8-4.8); LYMPHOCYTES % (AUTO) 10.4 % (20.0-44.0); MEAN CORPUSCULAR HGB CONC 33 g/dl (31.0-36.0); MEAN CORPUSCULAR VOLUME 85 fL (80-96); MONOCYTES % (AUTO) 11.5 % (2.0-12.0); NEUTROPHILS % (AUTO) 70.5 % (43.0-81.0); PLATELET COUNT (AUTO) 374 /CMM (150-450); RED BLOOD CELL COUNT(AUTO) 3.32 MIL/uL (4.5-6.0); WHITE BLOOD COUNT (AUTO) 8.4 K/uL (4.3-11.0)
[2019-02-17 19:48] LABS: CALCIUM, SERUM 8.6 mg/dL (8.5-10.1); CARBON DIOXIDE 25 mmol/L (21-32); CHLORIDE 107 mmol/L (98-107); CREATININE 1.4 mg/dL (0.6-1.3); GLUCOSE 116 mg/dL (74-106); POTASSIUM 4.6 mmol/L (3.5-5.1); SODIUM SERUM 142 mmol/L (136-145); UREA NITROGEN, BLOOD 38 mg/dL (7-18)
[2019-02-17 19:53] LABS: ALANINE AMINOTRANSFERASE 20 U/L (12-78); ALBUMIN 2.6 g/dL (3.4-5.0); ALKALINE PHOSPHATASE 74 U/L (46-116); ASPARTATE AMINOTRANSFERASE 25 U/L (15-37); B-TYPE NATRIURETIC PEPTIDE 692 PG/ML (0-125); BILIRUBIN,TOTAL 0.1 mg/dL (0.2-1.0); TOTAL PROTEIN, SERUM 6.9 g/dL (6.4-8.2)
[2019-02-17 22:00] VITALS: BP 123/48
[2019-02-17] MEDS ORDERED: ACETAMINOPHEN 325 MG TABLET PO PRN (22:30)
[2019-02-17] MEDS ORDERED: ONDANSETRON HCL/PF 4 MG/2 ML VIAL IV PRN (22:30)
[2019-02-17] MEDS ORDERED: IPRATROPIUM NEB FS 0.5 MG/2.5 ML AMPUL.NEB NEB PRN (22:30)
[2019-02-17] MEDS: IPRATROPIUM NEB FS 0.5 MG/2.5 ML AMPUL.NEB NEB SCH (22:30)
[2019-02-17] MEDS ORDERED: HYDROCODONE/APAP 5/325MG 1 EACH TABLET PO PRN (22:30)
[2019-02-17] MEDS: ALBUTEROL FS 2.5 MG/3 ML VIAL.NEB NEB SCH (22:30)
[2019-02-17] MEDS ORDERED: ALBUTEROL FS 2.5 MG/3 ML VIAL.NEB NEB PRN (22:30)
[2019-02-17] MEDS: methylPREDNISolone SOD SUCC 125 MG/2ML VIAL IV SCH (22:56)
[2019-02-17 22:57] LABS: BASOPHILS % (AUTO) 0.2 % (0.0-2.0); EOSINOPHILS % (AUTO) 1.1 % (0.0-6.0); HEMATOCRIT 27 % (39-51); LYMPHOCYTES # (AUTO) 0.5 /CMM (0.8-4.8); LYMPHOCYTES % (AUTO) 6.4 % (20.0-44.0); MEAN CORPUSCULAR HGB CONC 33 g/dl (31.0-36.0); MEAN CORPUSCULAR VOLUME 84 fL (80-96); MONOCYTES # (AUTO) 0.2 /CMM (0.1-1.30); MONOCYTES % (AUTO) 2.8 % (2.0-12.0); NEUTROPHILS # (AUTO) 7.2 /CMM (1.8-8.9); NEUTROPHILS % (AUTO) 89.5 % (43.0-81.0); PLATELET COUNT (AUTO) 389 /CMM (150-450); RED BLOOD CELL COUNT(AUTO) 3.25 MIL/uL (4.5-6.0)
[2019-02-17] MEDS: IV D5/ 0.9% NACL 1,000 ML IV PRN (22:57)
[2019-02-18] MEDS: methylPREDNISolone SOD SUCC 125 MG/2ML VIAL IV SCH ×3 (04:10→20:11)
[2019-02-18] MEDS: ALBUTEROL FS 2.5 MG/3 ML VIAL.NEB NEB SCH ×3 (07:35→20:16)
[2019-02-18] MEDS: IPRATROPIUM NEB FS 0.5 MG/2.5 ML AMPUL.NEB NEB SCH ×3 (07:35→20:16)
[2019-02-18 07:40] LABS: ALANINE AMINOTRANSFERASE 19 U/L (12-78); ALBUMIN 2.4 g/dL (3.4-5.0); ALKALINE PHOSPHATASE 65 U/L (46-116); ASPARTATE AMINOTRANSFERASE 17 U/L (15-37); BILIRUBIN,TOTAL 0.2 mg/dL (0.2-1.0); CALCIUM, SERUM 8.6 mg/dL (8.5-10.1); CARBON DIOXIDE 23 mmol/L (21-32); CHLORIDE 107 mmol/L (98-107); CREATININE 1.2 mg/dL (0.6-1.3); GLUCOSE 176 mg/dL (74-106); POTASSIUM 4.4 mmol/L (3.5-5.1); SODIUM SERUM 142 mmol/L (136-145); TOTAL PROTEIN, SERUM 6.5 g/dL (6.4-8.2); UREA NITROGEN, BLOOD 30 mg/dL (7-18)
[2019-02-18 08:00] VITALS: BP 109/63
[2019-02-18] MEDS: PANTOPRAZOLE 40 MG TABLET.DR PO SCH (08:50)
[2019-02-18] MEDS: DOCUSATE SODIUM 100 MG CAPSULE PO SCH ×2 (08:50→17:23)
[2019-02-18] MEDS: ENOXAPARIN SODIUM 40 MG/0.4 ML DISP.SYRIN SQ SCH (08:51)
[2019-02-18] MEDS ORDERED: Z GUARD REMEDY 2 OZ OINT TP PRN (12:30)
[2019-02-18 16:00] VITALS: BP 119/60
[2019-02-18] MEDS: IV D5/ 0.9% NACL 1,000 ML IV PRN (17:34)
[2019-02-18] MEDS: CEFTRIAXONE 1 G in IV D5W 50 ML IV SCH (20:10)
[2019-02-18] MEDS: ALPRAZOLAM 0.25 MG TABLET PO SCH (20:11)
[2019-02-18 20:29] VITALS: BP 120/75
[2019-02-19] MEDS: methylPREDNISolone SOD SUCC 125 MG/2ML VIAL IV SCH ×3 (05:19→20:52)
[2019-02-19] MEDS: ALBUTEROL FS 2.5 MG/3 ML VIAL.NEB NEB SCH ×3 (07:51→19:51)
[2019-02-19] MEDS: IPRATROPIUM NEB FS 0.5 MG/2.5 ML AMPUL.NEB NEB SCH ×3 (07:52→19:51)
[2019-02-19 08:00] VITALS: BP 106/54
[2019-02-19] MEDS: DOCUSATE SODIUM 100 MG CAPSULE PO SCH ×2 (08:18→17:05)
[2019-02-19] MEDS: PANTOPRAZOLE 40 MG TABLET.DR PO SCH (08:18)
[2019-02-19] MEDS: ALPRAZOLAM 0.25 MG TABLET PO SCH (08:19)
[2019-02-19] MEDS: ENOXAPARIN SODIUM 40 MG/0.4 ML DISP.SYRIN SQ SCH (08:21)
[2019-02-19] MEDS: IV D5/ 0.9% NACL 1,000 ML IV PRN (12:43)
[2019-02-19 16:00] VITALS: BP 104/59
[2019-02-19 20:00] VITALS: BP 112/60
[2019-02-19] MEDS: CEFTRIAXONE 1 G in IV D5W 50 ML IV SCH (20:52)
[2019-02-20] MEDS: methylPREDNISolone SOD SUCC 125 MG/2ML VIAL IV SCH ×3 (05:35→21:03)
[2019-02-20 06:39] LABS: HEMATOCRIT 26 % (39-51); HEMOGLOBIN 8.3 g/dL (13.5-17.5); LYMPHOCYTES # (AUTO) 0.6 /CMM (0.8-4.8); LYMPHOCYTES % (AUTO) 4.9 % (20.0-44.0); MEAN CORPUSCULAR HGB CONC 33 g/dl (31.0-36.0); MEAN CORPUSCULAR VOLUME 84 fL (80-96); MONOCYTES # (AUTO) 0.5 /CMM (0.1-1.30); MONOCYTES % (AUTO) 4.6 % (2.0-12.0); NEUTROPHILS # (AUTO) 10.7 /CMM (1.8-8.9); NEUTROPHILS % (AUTO) 90.5 % (43.0-81.0); PLATELET COUNT (AUTO) 392 /CMM (150-450); RED BLOOD CELL COUNT(AUTO) 3.04 MIL/uL (4.5-6.0); WHITE BLOOD COUNT (AUTO) 11.8 K/uL (4.3-11.0)
[2019-02-20 06:44] LABS: CALCIUM, SERUM 8.5 mg/dL (8.5-10.1); CARBON DIOXIDE 24 mmol/L (21-32); CHLORIDE 107 mmol/L (98-107); GLUCOSE 130 mg/dL (74-106); MAGNESIUM 1.9 mg/dL (1.8-2.4); POTASSIUM 4.4 mmol/L (3.5-5.1); SODIUM SERUM 141 mmol/L (136-145); UREA NITROGEN, BLOOD 27 mg/dL (7-18)
[2019-02-20] MEDS: IPRATROPIUM NEB FS 0.5 MG/2.5 ML AMPUL.NEB NEB SCH ×3 (07:57→19:48)
[2019-02-20] MEDS: ALBUTEROL FS 2.5 MG/3 ML VIAL.NEB NEB SCH ×3 (07:57→19:48)
[2019-02-20 08:00] VITALS: BP 127/76
[2019-02-20] MEDS: PANTOPRAZOLE 40 MG TABLET.DR PO SCH (08:18)
[2019-02-20] MEDS: ALPRAZOLAM 0.25 MG TABLET PO SCH (08:18)
[2019-02-20] MEDS: DOCUSATE SODIUM 100 MG CAPSULE PO SCH ×2 (08:18→16:25)
[2019-02-20] MEDS: ENOXAPARIN SODIUM 40 MG/0.4 ML DISP.SYRIN SQ SCH (08:19)
[2019-02-20 16:00] VITALS: BP 121/61
[2019-02-20 20:00] VITALS: BP 115/61
[2019-02-20] MEDS: CEFTRIAXONE 1 G in IV D5W 50 ML IV SCH (21:03)
[2019-02-21] MEDS: methylPREDNISolone SOD SUCC 125 MG/2ML VIAL IV SCH ×2 (04:06→20:06)
[2019-02-21] MEDS: IV D5/ 0.9% NACL 1,000 ML IV PRN (04:06)
[2019-02-21 07:31] LABS: BASOPHILS % (AUTO) 0.2 % (0.0-2.0); EOSINOPHILS % (AUTO) 0.1 % (0.0-6.0); HEMATOCRIT 28 % (39-51); HEMOGLOBIN 9.3 g/dL (13.5-17.5); LYMPHOCYTES # (AUTO) 0.8 /CMM (0.8-4.8); LYMPHOCYTES % (AUTO) 5.7 % (20.0-44.0); MEAN CORPUSCULAR HGB CONC 33 g/dl (31.0-36.0); MEAN CORPUSCULAR VOLUME 85 fL (80-96); MONOCYTES # (AUTO) 0.8 /CMM (0.1-1.30); MONOCYTES % (AUTO) 5.9 % (2.0-12.0); NEUTROPHILS # (AUTO) 12.3 /CMM (1.8-8.9); NEUTROPHILS % (AUTO) 88.1 % (43.0-81.0); PLATELET COUNT (AUTO) 435 /CMM (150-450); RED BLOOD CELL COUNT(AUTO) 3.35 MIL/uL (4.5-6.0)
[2019-02-21 07:42] LABS: CALCIUM, SERUM 8.6 mg/dL (8.5-10.1); CARBON DIOXIDE 24 mmol/L (21-32); CHLORIDE 105 mmol/L (98-107); CREATININE 0.8 mg/dL (0.6-1.3); GLUCOSE 130 mg/dL (74-106); POTASSIUM 4.1 mmol/L (3.5-5.1); SODIUM SERUM 138 mmol/L (136-145); UREA NITROGEN, BLOOD 24 mg/dL (7-18)
[2019-02-21] MEDS: ALBUTEROL FS 2.5 MG/3 ML VIAL.NEB NEB SCH ×3 (07:58→18:59)
[2019-02-21] MEDS: IPRATROPIUM NEB FS 0.5 MG/2.5 ML AMPUL.NEB NEB SCH ×3 (07:58→18:59)
[2019-02-21 08:00] VITALS: BP 135/75
[2019-02-21] MEDS: ALPRAZOLAM 0.25 MG TABLET PO SCH (08:16)
[2019-02-21] MEDS: DOCUSATE SODIUM 100 MG CAPSULE PO SCH ×2 (08:16→16:29)
[2019-02-21] MEDS: ENOXAPARIN SODIUM 40 MG/0.4 ML DISP.SYRIN SQ SCH (08:16)
[2019-02-21] MEDS: PANTOPRAZOLE 40 MG TABLET.DR PO SCH (08:16)
[2019-02-21 16:00] VITALS: BP 116/57
[2019-02-21] MEDS: CEFTRIAXONE 1 G in IV D5W 50 ML IV SCH (20:06)
[2019-02-21 21:13] VITALS: BP 121/71
[2019-02-21 23:50] VITALS: BP_SYST 121; BP_SYST 144; BP_DIAS 71; BP_DIAS 75
[2019-02-22 06:26] LABS: BASOPHILS % (AUTO) 0.1 % (0.0-2.0); HEMATOCRIT 26 % (39-51); HEMOGLOBIN 8.7 g/dL (13.5-17.5); LYMPHOCYTES # (AUTO) 0.9 /CMM (0.8-4.8); LYMPHOCYTES % (AUTO) 8.5 % (20.0-44.0); MEAN CORPUSCULAR HGB CONC 33 g/dl (31.0-36.0); MEAN CORPUSCULAR VOLUME 83 fL (80-96); MONOCYTES # (AUTO) 0.9 /CMM (0.1-1.30); MONOCYTES % (AUTO) 8.3 % (2.0-12.0); NEUTROPHILS # (AUTO) 8.5 /CMM (1.8-8.9); NEUTROPHILS % (AUTO) 83.1 % (43.0-81.0); PLATELET COUNT (AUTO) 380 /CMM (150-450); RED BLOOD CELL COUNT(AUTO) 3.17 MIL/uL (4.5-6.0); WHITE BLOOD COUNT (AUTO) 10.2 K/uL (4.3-11.0)
[2019-02-22 06:54] LABS: CALCIUM, SERUM 8.1 mg/dL (8.5-10.1); CARBON DIOXIDE 27 mmol/L (21-32); CHLORIDE 103 mmol/L (98-107); CREATININE 0.9 mg/dL (0.6-1.3); GLUCOSE 108 mg/dL (74-106); POTASSIUM 3.9 mmol/L (3.5-5.1); SODIUM SERUM 138 mmol/L (136-145); UREA NITROGEN, BLOOD 25 mg/dL (7-18)
[2019-02-22 07:05] LABS: LYMPHOCYTES % (MANUAL) 14 % (16-48); MONOCYTES % (MANUAL) 6 % (0-11.0); NEUTROPHILS % (MANUAL) 80 (42-76)
[2019-02-22] MEDS: ALBUTEROL FS 2.5 MG/3 ML VIAL.NEB NEB SCH ×3 (07:28→20:06)
[2019-02-22] MEDS: IPRATROPIUM NEB FS 0.5 MG/2.5 ML AMPUL.NEB NEB SCH ×3 (07:28→20:05)
[2019-02-22 08:00] VITALS: BP 142/80
[2019-02-22] MEDS: PANTOPRAZOLE 40 MG TABLET.DR PO SCH (08:32)
[2019-02-22] MEDS: DOCUSATE SODIUM 100 MG CAPSULE PO SCH ×2 (08:33→18:02)
[2019-02-22] MEDS: methylPREDNISolone SOD SUCC 125 MG/2ML VIAL IV SCH (08:34)
[2019-02-22] MEDS: ALPRAZOLAM 0.25 MG TABLET PO SCH (08:36)
[2019-02-22] MEDS: ENOXAPARIN SODIUM 40 MG/0.4 ML DISP.SYRIN SQ SCH (08:38)
[2019-02-22 16:00] VITALS: BP 121/67
[2019-02-22] MEDS: CEFTRIAXONE 1 G in IV D5W 50 ML IV SCH (20:38)
[2019-02-22 20:53] VITALS: BP 135/76
[2019-02-23] MEDS: IPRATROPIUM NEB FS 0.5 MG/2.5 ML AMPUL.NEB NEB SCH ×2 (07:29→13:51)
[2019-02-23] MEDS: ALBUTEROL FS 2.5 MG/3 ML VIAL.NEB NEB SCH ×2 (07:29→13:50)
[2019-02-23 08:00] VITALS: BP 140/75
[2019-02-23] MEDS: PANTOPRAZOLE 40 MG TABLET.DR PO SCH (08:39)
[2019-02-23] MEDS: DOCUSATE SODIUM 100 MG CAPSULE PO SCH ×2 (08:40→17:40)
[2019-02-23] MEDS: ALPRAZOLAM 0.25 MG TABLET PO SCH (08:41)
[2019-02-23] MEDS: ENOXAPARIN SODIUM 40 MG/0.4 ML DISP.SYRIN SQ SCH (08:43)
[2019-02-23] MEDS ORDERED: predniSONE 20 MG TABLET PO SCH (09:00)
[2019-02-23 16:00] VITALS: BP 130/73
== END 2019-02-23 19:28 | disposition home or self-care (01) | DRG 140 ==
LOC: ER 18:28 → TELE 20:38 → MED 22:43
PROVIDERS: ADMIT Legal Medicine; ATTEND Legal Medicine
DX: J44.1 Chronic obstructive pulmonary disease with (acute) exacerbation (principal); N17.0 Acute kidney failure with tubular necrosis; Z99.81 Dependence on supplemental oxygen; D64.9 Anemia, unspecified; E86.0 Dehydration; F03.90 Unspecified dementia, unspecified severity, without behavioral disturbance, psychotic disturbance, mood disturbance, and anxiety; F41.9 Anxiety disorder, unspecified; I10 Essential (primary) hypertension; F09 Unspecified mental disorder due to known physiological condition; K21.9 Gastro-esophageal reflux disease without esophagitis; N40.0 Benign prostatic hyperplasia without lower urinary tract symptoms; Z87.891 Personal history of nicotine dependence; J98.4 Other disorders of lung; M19.90 Unspecified osteoarthritis, unspecified site
CPT/HCPCS: 36415; 36600; 71045-TC; 71250-TC; 80048-TC; 80053-TC; 80076-TC; 82803-TC; 83605-TC; 83735-TC; 83880; 84484-TC; 85025-TC; 85730-TC; 86850-TC; 87040-TC; 87081-TC; 87086-TC; 87400; 94799-TC; G0378; J0456; J0696; J1650; J2405; J2930; J7042; J7060

== ENCOUNTER 2019-09-25 12:34 | Inpatient (IN) | payer OTHER, MEDICARE ==
[~2019-09-25] VITALS: Ht 172.7 cm; Wt 63.5 kg
[~2019-09-25 12:34] MED LIST changes: -MEGE40TA PO; +MEGE40TA5 PO
--- NOTE | 2019-09-25 14:47 | NUR ---
MS RN OPENING NOTES RECEIVED PATIENT VIA W/C DIRECT ADMIT FROM DR. VARGAS'S OFFICE DUE TO C/O SOB WITH DX OF COPD EXACERBATION. PATIENT ALERT AND ORIENTED X 2-3. ON 02 @ 3L/MIN VIA NC. HOB ELEVATED. DENIES ANY C/O PAIN NOR DISCOMFORT AT THIS TIME. ORIENTED PATIENT TO ROOM, CALL LIGHT AND UNIT. PATIENT REFUSED SKIN BODY ASSESSMENT AND DOES NOT WANT TO CHANGE INTO A GOWN. PATIENT PREFERS TO WEAR HIS OWN CLOTHING DESPITE OF EDUCATION AND RISKS EXPLAINED. INITIATED IV ACCESS TO RT HAND # 20 INTACT AND PATENT TO WELL WITH GOOD BLOOD RETURN. BED IN LOWEST POSITION, LOCKED. BED ALARM ON. CALL LIGHT WITHIN REACH.
[2019-09-25] MEDS ORDERED: FAMO20TA8 PO (15:30)
[2019-09-25] MEDS ORDERED: QUET25TA PO (15:30)
[2019-09-25] MEDS ORDERED: PRED20TA PO (15:30)
[2019-09-25] MEDS ORDERED: MONT10TA22 PO (15:30)
[2019-09-25] MEDS ORDERED: IV D5/ 0.9% NACL 1,000 ML IV ONE (16:00)
[2019-09-25] MEDS ORDERED: IPRATROPIUM NEB FS 0.5 MG/2.5 ML AMPUL.NEB NEB PRN (16:30)
[2019-09-25] MEDS ORDERED: ALBUTEROL FS 2.5 MG/0.5 ML VIAL.NEB NEB PRN (16:30)
[2019-09-25] MEDS ORDERED: ONDANSETRON HCL/PF 4 MG/2 ML VIAL IV PRN (16:30)
[2019-09-25 17:01] LABS: ABG BASE EXCESS -0.8 mmol/L; ABG OXYGEN SATURATION 95.2 % (92.0-98.5); ABG PCO2 36.8 mmHg (35.0-45.0); ABG PH 7.422 (7.350-7.450); ABG PO2 78.1 mmHg (75.0-100.0); AaDO2 92.6 mmHg; COHb 0.4 % (0.5-1.5); MetHb 0.4 % (0.0-1.5); O2Hb 94.4 % (94.0-97.0); SITE, ABG Right Radial; VENT MODE, BG NC 2.5L
[2019-09-25 17:15] LABS: EOSINOPHILS % (AUTO) 0.3 % (0.0-6.0); HEMATOCRIT 28 % (39-51); HEMOGLOBIN 8.9 g/dL (13.5-17.5); LYMPHOCYTES # (AUTO) 0.5 /CMM (0.8-4.8); LYMPHOCYTES % (AUTO) 4.8 % (20.0-44.0); MEAN CORPUSCULAR HGB CONC 32 g/dl (31.0-36.0); MEAN CORPUSCULAR VOLUME 92 fL (80-96); MONOCYTES # (AUTO) 0.7 /CMM (0.1-1.30); MONOCYTES % (AUTO) 6.1 % (2.0-12.0); NEUTROPHILS % (AUTO) 88.8 % (43.0-81.0); PLATELET COUNT (AUTO) 213 /CMM (150-450); RED BLOOD CELL COUNT(AUTO) 3.05 MIL/uL (4.5-6.0); WHITE BLOOD COUNT (AUTO) 11.2 K/uL (4.3-11.0)
[2019-09-25] MEDS: CEFTRIAXONE 1 G in IV D5W 50 ML IV SCH (17:41)
[2019-09-25] MEDS: IV D5/ 0.9% NACL 1,000 ML IV PRN (17:41)
[2019-09-25] MEDS: methylPREDNISolone SOD SUCC 125 MG/2ML VIAL IV SCH (17:42)
[2019-09-25 17:52] LABS: CALCIUM, SERUM 8.5 mg/dL (8.5-10.1); CREATININE 1.1 mg/dL (0.6-1.3)
[2019-09-25 18:06] LABS: ALBUMIN 2.3 g/dL (3.4-5.0); BILIRUBIN,TOTAL 0.2 mg/dL (0.2-1.0); TOTAL PROTEIN, SERUM 5.9 g/dL (6.4-8.2)
--- NOTE | 2019-09-25 19:00 | NUR ---
MS RN CLOSING NOTES PATIENT RESTING COMFORTABLY IN BED. WATCHING TV. ON 02 @ 3L/MIN VIA NC. HOB ELEVATED. DENIES ANY C/O PAIN NOR DISCOMFORT AT THIS TIME. RT HAND # 20 INTACT AND PATENT INFUSING D5 NS @ 75 ML/HR SAUL WELL. BED IN LOWEST POSITION, LOCKED. BED ALARM ON. CALL LIGHT WITHIN REACH. IN NO APPARENT DISTRESS.
[2019-09-25] MEDS ORDERED: ALBUTEROL FS 2.5 MG/3 ML VIAL.NEB NEB SCH (19:30)
[2019-09-25] MEDS: ALBUTEROL FS 2.5 MG/0.5 ML VIAL.NEB NEB SCH (19:45)
[2019-09-25] MEDS: IPRATROPIUM NEB FS 0.5 MG/2.5 ML AMPUL.NEB NEB SCH (19:45)
--- NOTE | 2019-09-25 19:55 | NUR ---
RN NOTES RECEIVED PATIENT AWAKE, RESTING COMFORTABLY, REPOSITIONED FOR COMFORT, SAFETY MEASURES IN PLACE, ASPIRATION PRECAUTION EMPHASIZED, NO SIGNS OF ACUTE DISTRESS NOTED, CALL LIGHT WITHIN EASY REACH. IV ACCESS INTACT AND PATENT, NO SIGNS AND SYMPTOMS OF INFECTION NOTED, ALL NEEDS ANTICIPATED, WILL CONTINUE TO MONITOR ACCORDINGLY.
[2019-09-25 20:00] VITALS: BP 128/74
[2019-09-25] MEDS ORDERED: POTASSIUM CHLORIDE 20 MEQ TAB.PRT.SR PO ONE (20:00)
[2019-09-25] MEDS ORDERED: ALBUTEROL SULFATE INH 18 GM HFA.AER.AD IH PRN (20:00)
[2019-09-25 20:52] VITALS: BP 128/74
[2019-09-25] MEDS: TRAZODONE 50 MG TABLET PO SCH (21:50)
[2019-09-25] MEDS: QUETIAPINE FUMARATE 25 MG TABLET PO SCH (21:51)
[2019-09-26] MEDS: methylPREDNISolone SOD SUCC 125 MG/2ML VIAL IV SCH ×4 (00:11→17:04)
[2019-09-26] MEDS: IPRATROPIUM NEB FS 0.5 MG/2.5 ML AMPUL.NEB NEB SCH ×4 (02:16→20:01)
[2019-09-26] MEDS: ALBUTEROL FS 2.5 MG/0.5 ML VIAL.NEB NEB SCH ×4 (02:16→20:01)
[2019-09-26] MEDS: IV D5/ 0.9% NACL 1,000 ML IV PRN ×2 (05:33→13:26)
--- NOTE | 2019-09-26 06:17 | NUR ---
RN NOTES ALL NEEDS ATTENDED AND MET, ABLE TO REST AND SLEPT AT INTERVALS, SAFETY MEASURES IN PLACE, NO SIGNS OF ACUTE DISTRESS NOTED, WILL ENDORSE TO AM NURSE FOR CONTINUITY OF CARE.
--- NOTE | 2019-09-26 07:30 | NUR ---
MS/RN Patient received Patient from hotel night auditor. Somali speaking only, shipyard laborer at bedside providing translation. Denies any pain or discomfort. 3l oxygen via nasal, saturation 98%, blood pressure stable. No needs at this time. Will continue to monitor and ensure safety.
[2019-09-26 07:36] LABS: APPEARANCE,URINE CLEAR (CLEAR); BILIRUBIN,URINE NEGATIVE (NEGATIVE); BLOOD, URINE NEGATIVE Ery/uL (NEGATIVE); COLOR,URINE DARK YELLO (YELLOW); KETONES,URINE NEGATIVE (NEGATIVE); LEUKOCYTE ESTERASE ,URINE NEGATIVE (NEGATIVE); NITRITE, URINE NEGATIVE (NEGATIVE); PROTEIN,URINE NEGATIVE (NEGATIVE); UGLUCOSE NEGATIVE (NEGATIVE); UROBILINOGEN,URINE 0.2 EU/dL (0.2)
[2019-09-26 08:00] VITALS: BP_SYST 127; BP_SYST 129; BP_DIAS 71
[2019-09-26] MEDS: FAMOTIDINE (20 MG) 20 MG TABLET PO SCH (08:23)
[2019-09-26] MEDS: CHOLECALCIFEROL 1,000 UNIT TABLET (VIT D3) PO SCH (08:23)
[2019-09-26] MEDS: ESCITALOPRAM OXALATE (10 MG) 10 MG TABLET PO SCH (08:23)
[2019-09-26] MEDS: FLUTICASONE/VILANTEROL 1 EACH BLST.W.DEV IH SCH (08:23)
[2019-09-26] MEDS: GABAPENTIN 300 MG CAPSULE PO SCH (08:23)
[2019-09-26] MEDS: MELOXICAM 7.5 MG TABLET PO SCH (08:23)
[2019-09-26] MEDS: MEMANTINE HCL 5 MG TABLET PO SCH (08:23)
[2019-09-26] MEDS: PANTOPRAZOLE 40 MG TABLET.DR PO SCH (08:23)
[2019-09-26] MEDS: MONTELUKAST SODIUM (10MG) 10 MG TABLET PO SCH (08:23)
[2019-09-26 08:52] LABS: CALCIUM, SERUM 7.9 mg/dL (8.5-10.1); POTASSIUM 3.9 mmol/L (3.5-5.1)
[2019-09-26] MEDS ORDERED: MIRTAZAPINE 15 MG TABLET PO SCH (09:00)
--- NOTE | 2019-09-26 09:00 | NUR ---
MS/RN Medications Morning medications administered as ordered, no difficulty swallowing.
[2019-09-26 09:09] LABS: HEMATOCRIT 28 % (39-51); HEMOGLOBIN 8.9 g/dL (13.5-17.5); LYMPHOCYTES # (AUTO) 0.4 /CMM (0.8-4.8); LYMPHOCYTES % (AUTO) 4.7 % (20.0-44.0); MEAN CORPUSCULAR HGB CONC 32 g/dl (31.0-36.0); MEAN CORPUSCULAR VOLUME 91 fL (80-96); MONOCYTES # (AUTO) 0.1 /CMM (0.1-1.30); MONOCYTES % (AUTO) 1.4 % (2.0-12.0); NEUTROPHILS # (AUTO) 8.8 /CMM (1.8-8.9); NEUTROPHILS % (AUTO) 93.9 % (43.0-81.0); PLATELET COUNT (AUTO) 208 /CMM (150-450); RED BLOOD CELL COUNT(AUTO) 3.01 MIL/uL (4.5-6.0); WHITE BLOOD COUNT (AUTO) 9.4 K/uL (4.3-11.0)
--- NOTE | 2019-09-26 11:00 | NUR ---
MS/RN PT Seen by PT - able to stand and take couple of steps with assistance but unsafe to ambulate without help.
--- NOTE | 2019-09-26 14:11 | NUR ---
MS/RN S/B Cipriano Miranda Seen by CLINICAL LABORATORY MEDICAL DIRECTOR - to continue with current plan of care, including solu-medrol, IVF and IVAB. Morning blood draws ordered.
[2019-09-26 16:00] VITALS: BP 137/83
[2019-09-26] MEDS: CEFTRIAXONE 1 G in IV D5W 50 ML IV SCH (17:04)
--- NOTE | 2019-09-26 18:32 | NUR ---
MS/RN End note Patient has refused to be turned and repositioned throughout shift, and to removed clothing to wear gown. Educated as to the importance of turning to prevent skin breakdown and wounds forming, but still refusing. Asked grandson to explain to patient, but continues to refuse. All needs attended, medications given as ordered. Will endorse to film processing shift supervisor.
--- NOTE | 2019-09-26 19:05 | NUR ---
MS RN NOTES RECEIVED PT IN BED AWAKE AND ABLE TO MAKE NEEDS KNOWN. PT A/O X2-3. RESPIRATIONS EVEN AND UNLABORED WITH NO S/S OF ACUTE DISTRESS OR SOB NOTED. NO COMPLAINTS OF PAIN AT THIS TIME. PT NOTED WITH RHAND @22G PATENT AND INTACT INFUSING D5NS @75CC/HR. SAFETY MEASURES IN PLACE WITH BED IN LOWEST LOCKED POSITION WITH SIDE RAILS UP X2. CALL LIGHT WITHIN REACH. WILL CONTINUE TO MONITOR.
[2019-09-26 20:00] VITALS: BP 139/86
[2019-09-26] MEDS: DOXYCYCLINE HYCLATE (100 MG) 100 MG TABLET PO SCH (21:37)
[2019-09-26] MEDS: TRAZODONE 50 MG TABLET PO SCH (21:37)
[2019-09-26] MEDS: QUETIAPINE FUMARATE 25 MG TABLET PO SCH (21:37)
[2019-09-27] MEDS: methylPREDNISolone SOD SUCC 125 MG/2ML VIAL IV SCH ×5 (00:20→23:52)
[2019-09-27] MEDS: IPRATROPIUM NEB FS 0.5 MG/2.5 ML AMPUL.NEB NEB SCH ×4 (01:26→19:53)
[2019-09-27] MEDS: ALBUTEROL FS 2.5 MG/0.5 ML VIAL.NEB NEB SCH ×4 (01:27→19:53)
--- NOTE | 2019-09-27 06:40 | NUR ---
MS RN NOTES PT FOUND ON FLOOR. VSS. PT DENIES PAIN. PT DENIES HITTING ANYTHING. MD AWARE WITH NO NEW ORDERS. CARGO SERVICE SUPERVISOR AWARE WELL FAMILY. WILL CONTINUE TO MONITOR.
[2019-09-27 07:34] LABS: HEMATOCRIT 28 % (39-51); HEMOGLOBIN 8.9 g/dL (13.5-17.5); LYMPHOCYTES # (AUTO) 0.5 /CMM (0.8-4.8); LYMPHOCYTES % (AUTO) 4.2 % (20.0-44.0); MEAN CORPUSCULAR HGB CONC 32 g/dl (31.0-36.0); MEAN CORPUSCULAR VOLUME 90 fL (80-96); MONOCYTES # (AUTO) 0.3 /CMM (0.1-1.30); MONOCYTES % (AUTO) 2.6 % (2.0-12.0); NEUTROPHILS # (AUTO) 11.2 /CMM (1.8-8.9); NEUTROPHILS % (AUTO) 93.2 % (43.0-81.0); PLATELET COUNT (AUTO) 247 /CMM (150-450); RED BLOOD CELL COUNT(AUTO) 3.11 MIL/uL (4.5-6.0)
--- NOTE | 2019-09-27 07:56 | NUR ---
MS RN NOTES PT IN BED AWAKE AND ABLE TO MAKE NEEDS KNOWN. PT A/O X2-3. RESPIRATIONS EVEN AND UNLABORED WITH NO S/S OF ACUTE DISTRESS OR SOB NOTED THROUGHOUT SHIFT. NO COMPLAINTS OF PAIN AT THIS TIME. PT NOTED WITH RHAND @22G PATENT AND INTACT INFUSING D5NS @75CC/HR. SAFETY MEASURES IN PLACE WITH BED IN LOWEST LOCKED POSITION WITH SIDE RAILS UP X2. CALL LIGHT WITHIN REACH. WILL ENDORSE TO ONCOMING NURSE FOR KARIN.
[2019-09-27 08:00] VITALS: BP 149/82
[2019-09-27 08:00] LABS: CALCIUM, SERUM 8.1 mg/dL (8.5-10.1); CARBON DIOXIDE 27 mmol/L (21-32); CHLORIDE 108 mmol/L (98-107); CREATININE 0.9 mg/dL (0.6-1.3); GLUCOSE 129 mg/dL (74-106); POTASSIUM 3.8 mmol/L (3.5-5.1); SODIUM SERUM 144 mmol/L (136-145); UREA NITROGEN, BLOOD 23 mg/dL (7-18)
--- NOTE | 2019-09-27 08:00 | NUR ---
RN NOTES RECEIVED PATIENT IN THE BED A/O X3 , PATIENT HAS NO ACUTE RESPIRATORY DISTRESS ON O2-2L NC, PATIENT REFUSED PAIN, ADMINISTERED SCHEDULED MEDICATION, INFUSING D5 NS AT 75 ML/HR ON RIGHT HAND. PATIENT WAS COMPLAINING OF SLEEP PROBLEM DURING NIGHT TIME. USING URINAL, AND USING WALKER WHEN GOING BATHROOM ENCOURAGED TO USE CALL LIGHT FOR HELP. CALL LIGHT WITHIN TO REACH, BED ALARM ON. V/S WNL, SAFETY PRECAUTION MAINTAINED ALL THE TIME. PATIENT TOLERATED BREAKFAST WELL. CONTINUED MONITORING.
[2019-09-27] MEDS: IV D5/ 0.9% NACL 1,000 ML IV PRN ×3 (08:08→23:52)
[2019-09-27] MEDS: MEMANTINE HCL 5 MG TABLET PO SCH (08:16)
[2019-09-27] MEDS: CHOLECALCIFEROL 1,000 UNIT TABLET (VIT D3) PO SCH (08:16)
[2019-09-27] MEDS: GABAPENTIN 300 MG CAPSULE PO SCH (08:16)
[2019-09-27] MEDS: PANTOPRAZOLE 40 MG TABLET.DR PO SCH (08:16)
[2019-09-27] MEDS: MONTELUKAST SODIUM (10MG) 10 MG TABLET PO SCH (08:16)
[2019-09-27] MEDS: MELOXICAM 7.5 MG TABLET PO SCH (08:16)
[2019-09-27] MEDS: ESCITALOPRAM OXALATE (10 MG) 10 MG TABLET PO SCH (08:16)
[2019-09-27] MEDS: DOXYCYCLINE HYCLATE (100 MG) 100 MG TABLET PO SCH ×2 (08:16→20:25)
[2019-09-27] MEDS: FAMOTIDINE (20 MG) 20 MG TABLET PO SCH (08:16)
[2019-09-27] MEDS: FLUTICASONE/VILANTEROL 1 EACH BLST.W.DEV IH SCH (08:17)
--- NOTE | 2019-09-27 11:38 | NUR ---
rn notes patient in the bed resting, seen by hospitalist Wisam CLINICAL EDUCATION MANAGER, no new orders, assist patient to the brp, safety precaution maintained all the time.
[2019-09-27 16:00] VITALS: BP 140/91
--- NOTE | 2019-09-27 18:00 | NUR ---
RN NOTES PATIENT V/S STABLE, REFUSED PAIN , ON O2-2L NC, NO ACUTE RESPIRATORY DISTRESS. ADMINISTERED SCHEDULED MEDICATION, ASSIST PATIENT TO THE BATHROOM WITH ASSIST 2 PERSONNEL , INFUSING 1/2 NS AT 75 ML/HR ON RIGHT FA INTACT, CALL LIGHT WITHIN TO REACH. ENDORSED ONCOMING NURSE FOLLOW PLAN OF CARE.
[2019-09-27] MEDS: CEFTRIAXONE 1 G in IV D5W 50 ML IV SCH (19:06)
--- NOTE | 2019-09-27 19:10 | NUR ---
MS RN OPENING NOTES Received patient, awake on bed. With O2 but patient refused to use at this time, on RA saturating well, no SOB/respiratory distress noted, no s/sx of discomfort noted at this time. With IVF infusing well as ordered. Kept on bed clean, dry and comfortable. On fall and aspiration precautions. Call light within easy reach. Will continue to monitor accordingly.
[2019-09-27 20:00] VITALS: BP 156/74
[2019-09-27] MEDS: MIRTAZAPINE 15 MG TABLET PO SCH (20:24)
[2019-09-27 20:40] VITALS: BP 156/74
[2019-09-27] MEDS: TRAZODONE 50 MG TABLET PO SCH (21:06)
[2019-09-27] MEDS: QUETIAPINE FUMARATE 25 MG TABLET PO SCH (21:06)
[2019-09-28] MEDS: IPRATROPIUM NEB FS 0.5 MG/2.5 ML AMPUL.NEB NEB SCH ×4 (01:59→20:15)
[2019-09-28] MEDS: ALBUTEROL FS 2.5 MG/0.5 ML VIAL.NEB NEB SCH ×4 (02:00→20:15)
[2019-09-28] MEDS: methylPREDNISolone SOD SUCC 125 MG/2ML VIAL IV SCH (05:20)
[2019-09-28 06:39] LABS: HEMATOCRIT 29 % (39-51); HEMOGLOBIN 9.3 g/dL (13.5-17.5); LYMPHOCYTES # (AUTO) 0.3 /CMM (0.8-4.8); LYMPHOCYTES % (AUTO) 3.2 % (20.0-44.0); MEAN CORPUSCULAR HGB CONC 32 g/dl (31.0-36.0); MEAN CORPUSCULAR VOLUME 91 fL (80-96); MONOCYTES # (AUTO) 0.2 /CMM (0.1-1.30); MONOCYTES % (AUTO) 2.2 % (2.0-12.0); NEUTROPHILS # (AUTO) 9.9 /CMM (1.8-8.9); NEUTROPHILS % (AUTO) 94.6 % (43.0-81.0); PLATELET COUNT (AUTO) 249 /CMM (150-450); RED BLOOD CELL COUNT(AUTO) 3.19 MIL/uL (4.5-6.0); WHITE BLOOD COUNT (AUTO) 10.5 K/uL (4.3-11.0)
--- NOTE | 2019-09-28 06:55 | NUR ---
MS RN CLOSING NOTES Patient asleep on Gardner's position on bed. On O2 vial NC @ 2LPM, no SOB/respiratory distress noted at this time. No new complaints made. All nursing needs attended, due meds given as ordered. Able to stable at bedside to void, assistance and stand by assist provided at all times. Kept on bed clean, dry and comfortable. Call light within easy reach. On fall and aspiration precautions. Endorsed.
[2019-09-28 07:04] LABS: CALCIUM, SERUM 8.2 mg/dL (8.5-10.1); CREATININE 0.9 mg/dL (0.6-1.3); POTASSIUM 3.7 mmol/L (3.5-5.1)
[2019-09-28 08:00] VITALS: BP 144/72
--- NOTE | 2019-09-28 08:00 | NUR ---
RN NOTES RECEIVED PATIENT IN THE BED A/O X3, NO ACUTE RESPIRATORY DISTRESS, ON O2-NC, V/S STABLE, ADMINISTERED SCHEDULED MEDICATION, PATIENT REFUSED PAIN, TOLERATED BREAKFAST WELL BY SELF. NEEDS ATTENDED AND ANTICIPATED, CALL LIGHT WITHIN TO REACH, SAFETY PRECAUTION MAINTAINED ALL THE TIME.
[2019-09-28] MEDS: CHOLECALCIFEROL 1,000 UNIT TABLET (VIT D3) PO SCH (08:01)
[2019-09-28] MEDS: ESCITALOPRAM OXALATE (10 MG) 10 MG TABLET PO SCH (08:01)
[2019-09-28] MEDS: MONTELUKAST SODIUM (10MG) 10 MG TABLET PO SCH (08:01)
[2019-09-28] MEDS: DOXYCYCLINE HYCLATE (100 MG) 100 MG TABLET PO SCH ×2 (08:01→21:08)
[2019-09-28] MEDS: MELOXICAM 7.5 MG TABLET PO SCH (08:01)
[2019-09-28] MEDS: GABAPENTIN 300 MG CAPSULE PO SCH (08:01)
[2019-09-28] MEDS: PANTOPRAZOLE 40 MG TABLET.DR PO SCH (08:01)
[2019-09-28] MEDS: MEMANTINE HCL 5 MG TABLET PO SCH (08:01)
[2019-09-28] MEDS: FAMOTIDINE (20 MG) 20 MG TABLET PO SCH (08:01)
[2019-09-28] MEDS: FLUTICASONE/VILANTEROL 1 EACH BLST.W.DEV IH SCH (08:05)
--- NOTE | 2019-09-28 08:41 | NUR ---
rn notes Seen patient by hospitalist Dr Saleh plan is still keep hospitalization, and interactive video technician will follow patient too.
--- NOTE | 2019-09-28 10:06 | NUR ---
RN NOTES PATIENT WALKING IN THE HALLWAY WITH PT USING WALKER, NO ACUTE SOB O2-96 ROOM AIR, REFUSED PAIN. CONTINUED MONITORING.
[2019-09-28 11:35] LABS: IRON, SERUM 70 ug/dl (50-175); TOTAL IRON BINDING CAPACITY 180 ug/dl (250-450)
[2019-09-28 11:47] LABS: CHOLESTEROL 147 mg/dL (<200); FERRITIN 612 ng/mL (8-388); HDL CHOLESTEROL 51 mg/dL (40-60); LDL 83 mg/dL (0-99); TRIGLYCERIDES 51 mg/dL (30-150)
[2019-09-28 16:00] VITALS: BP 139/73
[2019-09-28] MEDS: CEFTRIAXONE 1 G in IV D5W 50 ML IV SCH (17:12)
[2019-09-28] MEDS: IV D5/ 0.9% NACL 1,000 ML IV PRN (17:17)
--- NOTE | 2019-09-28 18:00 | NUR ---
RN NOTES PATIENT EATING AT THIS TIME, TOLERATED DINNER WELL, ADMINISTERED SCHEDULED MEDICATION, INFUSING ROCEPHIN 100 ML/HR ON RIGHT HAND INTACT, PATIENT REFUSED PAIN , ON O2-2L NC,TURN AND REPOSTION SELF IN THE BED. SAFETY PRECAUTION MAINTAINED AL THE TIME. ENDORSED ONCOMING NURSE FOLLOW PLAN OF CARE.
--- NOTE | 2019-09-28 19:48 | NUR ---
RN NOTES RECEIVED PATIENT AWAKE, NO ACUTE SIGNS OF DISTRESS NOTED, REPOSITIONED FOR COMFORT, SAFETY MEASURES IN PLACED, ASPIRATION PRECAUTION EMPHASIZED, IV ACCESS INTACT AND PATENT, NO SIGNS OF INFECTION NOTED, CALL LIGHT WITHIN EASY REACH, DENIES ANY PAIN OR DISCOMFORT, ALL NEEDS ANTICIPATED, WILL CONTINUE TO MONITOR ACCORDINGLY.
[2019-09-28 20:25] VITALS: BP 148/77
[2019-09-28] MEDS: MIRTAZAPINE 15 MG TABLET PO SCH (20:32)
[2019-09-28 20:40] VITALS: BP 148/77
[2019-09-28] MEDS: TRAZODONE 50 MG TABLET PO SCH (21:29)
[2019-09-28] MEDS: QUETIAPINE FUMARATE 25 MG TABLET PO SCH (21:29)
[2019-09-29] MEDS: IPRATROPIUM NEB FS 0.5 MG/2.5 ML AMPUL.NEB NEB SCH ×4 (01:58→19:33)
[2019-09-29] MEDS: ALBUTEROL FS 2.5 MG/0.5 ML VIAL.NEB NEB SCH ×4 (01:58→19:33)
[2019-09-29 04:50] VITALS: BP 139/77
[2019-09-29 06:17] LABS: CREATININE 0.8 mg/dL (0.6-1.3); MAGNESIUM 1.7 mg/dL (1.8-2.4); POTASSIUM 3.1 mmol/L (3.5-5.1)
[2019-09-29 06:18] LABS: HEMATOCRIT 29 % (39-51); LYMPHOCYTES # (AUTO) 0.8 /CMM (0.8-4.8); LYMPHOCYTES % (AUTO) 6.9 % (20.0-44.0); MEAN CORPUSCULAR HGB CONC 32 g/dl (31.0-36.0); MEAN CORPUSCULAR VOLUME 91 fL (80-96); MONOCYTES # (AUTO) 1.3 /CMM (0.1-1.30); MONOCYTES % (AUTO) 10.8 % (2.0-12.0); NEUTROPHILS # (AUTO) 9.8 /CMM (1.8-8.9); NEUTROPHILS % (AUTO) 82.3 % (43.0-81.0); PLATELET COUNT (AUTO) 245 /CMM (150-450); RED BLOOD CELL COUNT(AUTO) 3.15 MIL/uL (4.5-6.0); WHITE BLOOD COUNT (AUTO) 11.9 K/uL (4.3-11.0)
--- NOTE | 2019-09-29 06:32 | NUR ---
RN NOTES ALL NEEDS ATTENDED AND MET, PATIENT AWAKE AT THIS TIME, NO ACUTE SIGNS OF DISTRESS NOTED, REPOSITIONED FOR COMFORT, SAFETY MEASURES IN PLACED, ASPIRATION PRECAUTION EMPHASIZED, IV ACCESS INTACT AND PATENT, NO SIGNS OF INFECTION NOTED, CALL LIGHT WITHIN EASY REACH, DENIES ANY PAIN OR DISCOMFORT, ALL NEEDS ANTICIPATED, WILL ENDORSE TO AM NURSE FOR CONTINUITY OF CARE.
--- NOTE | 2019-09-29 07:56 | NUR ---
N NOTES RECEIVED PATIENT IN THE BED A/O X3, NO ACUTE RESPIRATORY DISTRESS, ON O2-2L NC , V/S STABLE, ADMINISTERED SCHEDULED MEDICATION, PATIENT REFUSED PAIN, TOLERATED BREAKFAST WELL BY SELF. USING URINAL, INFUSING D5NS AT 75 ML/HR ON RIGHT HAND INTACT. NEEDS ATTENDED AND ANTICIPATED, CALL LIGHT WITHIN TO REACH, SAFETY PRECAUTION MAINTAINED ALL THE TIME.
[2019-09-29 08:00] VITALS: BP 154/82
[2019-09-29] MEDS: GABAPENTIN 300 MG CAPSULE PO SCH (08:00)
[2019-09-29] MEDS: PANTOPRAZOLE 40 MG TABLET.DR PO SCH (08:00)
[2019-09-29] MEDS: CHOLECALCIFEROL 1,000 UNIT TABLET (VIT D3) PO SCH (08:00)
[2019-09-29] MEDS: ESCITALOPRAM OXALATE (10 MG) 10 MG TABLET PO SCH (08:00)
[2019-09-29] MEDS: MONTELUKAST SODIUM (10MG) 10 MG TABLET PO SCH (08:00)
[2019-09-29] MEDS: MELOXICAM 7.5 MG TABLET PO SCH (08:00)
[2019-09-29] MEDS: DOXYCYCLINE HYCLATE (100 MG) 100 MG TABLET PO SCH ×2 (08:00→20:31)
[2019-09-29] MEDS: MEMANTINE HCL 5 MG TABLET PO SCH (08:00)
--- NOTE | 2019-09-29 08:00 | NUR ---
RN NOTES RECEIVED PATIENT IN THE ROOM ,A/ A/O X3, NO ACUTE RESPIRATORY DISTRESS, ON O2-2L NC, V/S STABLE, ASSIST PATIENT OUT OB BED FOR BREAKFAST SITTING IN THE CHAIR, ADMINISTERED SCHEDULED MEDICATION, REFUSED PAIN, TOLERATED BREAKFAST WELL BY SELF. INSERTED NEW IV ACCESS ON LEFT FA INTACT ,INFUSING MAGNESIUM 100 ML/HR. NEEDS ATTENDED AND ANTICIPATED, CALL LIGHT WITHIN TO REACH, SAFETY PRECAUTION MAINTAINED ALL THE TIME.
[2019-09-29] MEDS: FAMOTIDINE (20 MG) 20 MG TABLET PO SCH (08:01)
[2019-09-29] MEDS: predniSONE 20 MG TABLET PO SCH (08:02)
[2019-09-29] MEDS: FLUTICASONE/VILANTEROL 1 EACH BLST.W.DEV IH SCH (08:02)
[2019-09-29] MEDS: IV D5/ 0.9% NACL 1,000 ML IV PRN (08:19)
[2019-09-29] MEDS: POTASSIUM CHLORIDE 20 MEQ TAB.PRT.SR PO SCH ×3 (08:26→10:00)
[2019-09-29] MEDS: Magnesium 1GM/D5W 100ML PREMIX 100 ML IV SCH ×2 (08:26→09:59)
--- NOTE | 2019-09-29 12:36 | NUR ---
RN NOTES PATIENT STABLE, SEEN PT, AMBULATED IN THE HALLWAY NO SOB NOTES. V/S WNL. ASSIST PATIENT BACK TO THE BED. CALL LIGHT WITHIN TO REACH.
[2019-09-29 16:00] VITALS: BP 129/86
[2019-09-29] MEDS: CEFTRIAXONE 1 G in IV D5W 50 ML IV SCH (18:00)
--- NOTE | 2019-09-29 18:00 | NUR ---
RN NOTES PATIENT IN THE BED INFUSING ROCEPHIN 100 ML/HR ON LEFT FA INTACT. PATIENT TOLERATED DINNER WELL, REFUSED PAIN, USING URINAL. CALL LIGHT WITHIN TO REACH. ENDORSED ONCOMING NURSE FOLLOW PLAN OF CARE.
--- NOTE | 2019-09-29 19:25 | NUR ---
RN OPEN NOTES RECEIVED PATIENT AWAKE SITTING IN CHAIR. A/OX3. NO SIGNS OF DISTRESS OR DISCOMFORT. BREATHING EVEN AND UNLABORED. ON 2LPM O2 VIA NC. IV ACCESS IN LFA WITH D5NS INFUSING, PATENT AND INTACT, NO SIGNS OF REDNESS OR INFILTRATION. BED IN LOW LOCKED POSITION WITH SIDE RAILS X2. CALL LIGHT WITHIN REACH. PATIENT ADVISED TO USE CALL LIGHT FOR ASSISTANCE. WILL CONTINUE TO MONITOR.
[2019-09-29 20:00] VITALS: BP 126/89
[2019-09-29] MEDS: MIRTAZAPINE 15 MG TABLET PO SCH (20:31)
[2019-09-29] MEDS: TRAZODONE 50 MG TABLET PO SCH (21:33)
[2019-09-29] MEDS: QUETIAPINE FUMARATE 25 MG TABLET PO SCH (21:33)
[2019-09-30] MEDS: ALBUTEROL FS 2.5 MG/0.5 ML VIAL.NEB NEB SCH ×4 (02:21→20:12)
[2019-09-30] MEDS: IPRATROPIUM NEB FS 0.5 MG/2.5 ML AMPUL.NEB NEB SCH ×4 (02:21→20:12)
[2019-09-30 03:32] LABS: OCCULT BLOOD STOOL NEGATIVE (NEGATIVE)
[2019-09-30] MEDS: IV D5/ 0.9% NACL 1,000 ML IV PRN ×2 (05:26→22:37)
--- NOTE | 2019-09-30 07:03 | NUR ---
RN CLOSING NOTES PATIENT RESTING IN BED, EASILY AROUSABLE. A/OX3. NO SIGNS OF DISTRESS OR DISCOMFORT. BREATHING EVEN AND UNLABORED. ON 2LPM O2 VIA NC. IV ACCESS IN LFA WITH D5NS INFUSING, PATENT AND INTACT, NO SIGNS OF REDNESS OR INFILTRATION. ALL NEEDS MET. NO SIGNIFICANT CHANGES THROUGH THE NIGHT. BED IN LOW LOCKED POSITION WITH SIDE RAILS X2. CALL LIGHT WITHIN REACH. PATIENT ADVISED TO USE CALL LIGHT FOR ASSISTANCE. WILL ENDORSE TO AM SHIFT FOR KARIN.
--- NOTE | 2019-09-30 07:25 | NUR ---
MS RN OPENING NOTES RECEIVED PT IN BED, ASLEEP, EASILY AROUSED, A/O 2-3, ICELANDIC SPEAKING. PT TOLERATING RA, WITH NO ACUTE RESPIRATORY DISTRESS. PT DENIES ANY PAIN OR DISCOMFORT AT THIS TIME. ALSO DENIES ANY CONCERN OR QUESTIONS AT THE MOMENT. IVF D5NS AT 75ML/HR TO LFA G20, INTACT AND FLUID INFUSING WELL. PT KEPT COMFORTABLE IN BED. CALL LIGHT KEPT WITHIN REACH. PT'S BED IN LOWEST, LOCKED POSITION WITH SR X3.
[2019-09-30 08:00] VITALS: BP 125/74
[2019-09-30] MEDS: MEMANTINE HCL 5 MG TABLET PO SCH (08:28)
[2019-09-30] MEDS: MELOXICAM 7.5 MG TABLET PO SCH (08:28)
[2019-09-30] MEDS: CHOLECALCIFEROL 1,000 UNIT TABLET (VIT D3) PO SCH (08:28)
[2019-09-30] MEDS: ESCITALOPRAM OXALATE (10 MG) 10 MG TABLET PO SCH (08:28)
[2019-09-30] MEDS: predniSONE 20 MG TABLET PO SCH (08:28)
[2019-09-30] MEDS: DOXYCYCLINE HYCLATE (100 MG) 100 MG TABLET PO SCH ×2 (08:28→21:05)
[2019-09-30] MEDS: GABAPENTIN 300 MG CAPSULE PO SCH (08:28)
[2019-09-30] MEDS: PANTOPRAZOLE 40 MG TABLET.DR PO SCH (08:28)
[2019-09-30] MEDS: MONTELUKAST SODIUM (10MG) 10 MG TABLET PO SCH (08:28)
[2019-09-30] MEDS: FAMOTIDINE (20 MG) 20 MG TABLET PO SCH (08:29)
[2019-09-30] MEDS: FLUTICASONE/VILANTEROL 1 EACH BLST.W.DEV IH SCH (08:29)
[2019-09-30 09:34] LABS: EOSINOPHILS % (AUTO) 0.1 % (0.0-6.0); HEMATOCRIT 30 % (39-51); HEMOGLOBIN 9.6 g/dL (13.5-17.5); LYMPHOCYTES # (AUTO) 0.7 /CMM (0.8-4.8); LYMPHOCYTES % (AUTO) 6.8 % (20.0-44.0); MEAN CORPUSCULAR HGB CONC 33 g/dl (31.0-36.0); MEAN CORPUSCULAR VOLUME 91 fL (80-96); MONOCYTES # (AUTO) 1.1 /CMM (0.1-1.30); MONOCYTES % (AUTO) 9.8 % (2.0-12.0); NEUTROPHILS # (AUTO) 8.9 /CMM (1.8-8.9); NEUTROPHILS % (AUTO) 83.3 % (43.0-81.0); PLATELET COUNT (AUTO) 250 /CMM (150-450); RED BLOOD CELL COUNT(AUTO) 3.25 MIL/uL (4.5-6.0); WHITE BLOOD COUNT (AUTO) 10.7 K/uL (4.3-11.0)
[2019-09-30 09:47] LABS: ALBUMIN 2.1 g/dL (3.4-5.0); BILIRUBIN,TOTAL 0.3 mg/dL (0.2-1.0); CALCIUM, SERUM 7.7 mg/dL (8.5-10.1); CREATININE 0.9 mg/dL (0.6-1.3); MAGNESIUM 1.7 mg/dL (1.8-2.4); PHOSPHORUS 1.8 mg/dL (2.5-4.9); POTASSIUM 3.5 mmol/L (3.5-5.1); TOTAL PROTEIN, SERUM 5.2 g/dL (6.4-8.2)
[2019-09-30] MEDS ORDERED: K PHOS NEUTRAL 250 MG TABLET PO ONE (14:30)
--- NOTE | 2019-09-30 15:20 | NUR ---
MS RN NOTES NOTIFIED DR VARGAS REGARDING PT'S MG 1.7L. AWAITING FOR REPLACEMENT. PHOSPHORUS REPLACED BY DR. CRUZ. AWAITING FOR RESPONSE.
[2019-09-30] MEDS: Magnesium 1GM/D5W 100ML PREMIX 100 ML IV SCH ×2 (16:25→17:47)
[2019-09-30] MEDS ORDERED: Magnesium 1GM/D5W 100ML PREMIX PIGGYBACK IV ONE (16:30)
[2019-09-30] MEDS: CEFTRIAXONE 1 G in IV D5W 50 ML IV SCH (18:12)
--- NOTE | 2019-09-30 18:34 | NUR ---
MS RN CLOSING NOTES PT REMAINS IN BED, ASLEEP, EASILY AROUSED, A/O 2-3, DANISH SPEAKING. PT TOLERATING RA, WITH NO ACUTE RESPIRATORY DISTRESS. PT DENIES ANY PAIN OR DISCOMFORT AT THIS TIME. IVF D5NS AT 75ML/HR TO LFA G20, INTACT AND FLUID INFUSING WELL. PT KEPT COMFORTABLE IN BED. ALL NEEDS AND CARE ATTENDED. CALL LIGHT KEPT WITHIN REACH. PT'S BED IN LOWEST, LOCKED POSITION WITH SR X3. WILL ENDORSE TO INCOMING NIGHT NURSE FOR KARIN.
--- NOTE | 2019-09-30 19:05 | NUR ---
MS RN NOTE RECEIVED PT IN STABLE CONDITION A/O X3, NO INDICATION OF DISTRESS OR SOB. NO COMPLAINTS OF PAIN OR N/V. IV IN LFA #20, IN PLACE WITH IVF INFUSING, TOLERATING WELL. ALL CURRENT NEEDS ATTENDED TO. BED LOW, LOCKED, UPPER RAILS UP, AND CALL LIGHT WITHIN REACH. WILL CONT. TO MONITOR.
[2019-09-30 20:00] VITALS: BP 146/86
[2019-09-30] MEDS: MIRTAZAPINE 15 MG TABLET PO SCH (20:27)
[2019-09-30] MEDS: TRAZODONE 50 MG TABLET PO SCH (21:05)
[2019-09-30] MEDS: QUETIAPINE FUMARATE 25 MG TABLET PO SCH (21:05)
[2019-10-01] MEDS: IPRATROPIUM NEB FS 0.5 MG/2.5 ML AMPUL.NEB NEB SCH ×4 (00:35→20:15)
[2019-10-01] MEDS: ALBUTEROL FS 2.5 MG/0.5 ML VIAL.NEB NEB SCH ×4 (00:35→20:15)
--- NOTE | 2019-10-01 06:28 | NUR ---
MS RN NOTE PT REMAINS IN STABLE CONDITION A/O X3, NO INDICATION OF DISTRESS OR SOB. NO COMPLAINTS OF PAIN OR N/V. IV IN LFA #20, IN PLACE WITH IVF INFUSING, TOLERATING WELL. ALL CURRENT NEEDS ATTENDED TO. BED LOW, LOCKED, UPPER RAILS UP, AND CALL LIGHT WITHIN REACH. WILL CONT. TO MONITOR AND ENDORSE TO NEXT SHIFT FOR KARIN.
[2019-10-01 07:15] LABS: CALCIUM, SERUM 7.7 mg/dL (8.5-10.1); CREATININE 0.8 mg/dL (0.6-1.3); MAGNESIUM 2.1 mg/dL (1.8-2.4); PHOSPHORUS 2.4 mg/dL (2.5-4.9); POTASSIUM 3.6 mmol/L (3.5-5.1)
[2019-10-01 08:00] VITALS: BP 132/82
[2019-10-01] MEDS: GABAPENTIN 300 MG CAPSULE PO SCH (08:29)
[2019-10-01] MEDS: ESCITALOPRAM OXALATE (10 MG) 10 MG TABLET PO SCH (08:29)
[2019-10-01] MEDS: DOXYCYCLINE HYCLATE (100 MG) 100 MG TABLET PO SCH ×2 (08:29→20:07)
[2019-10-01] MEDS: CHOLECALCIFEROL 1,000 UNIT TABLET (VIT D3) PO SCH (08:29)
[2019-10-01] MEDS: MEMANTINE HCL 5 MG TABLET PO SCH (08:30)
[2019-10-01] MEDS: MELOXICAM 7.5 MG TABLET PO SCH (08:30)
[2019-10-01] MEDS: PANTOPRAZOLE 40 MG TABLET.DR PO SCH (08:30)
[2019-10-01] MEDS: predniSONE 20 MG TABLET PO SCH (08:30)
[2019-10-01] MEDS: MONTELUKAST SODIUM (10MG) 10 MG TABLET PO SCH (08:30)
[2019-10-01] MEDS: FAMOTIDINE (20 MG) 20 MG TABLET PO SCH (08:36)
[2019-10-01] MEDS: FLUTICASONE/VILANTEROL 1 EACH BLST.W.DEV IH SCH (08:36)
[2019-10-01 16:00] VITALS: BP 130/69
[2019-10-01] MEDS ORDERED: K PHOS NEUTRAL 250 MG TABLET PO ONE (17:00)
[2019-10-01] MEDS: CEFTRIAXONE 1 G in IV D5W 50 ML IV SCH (17:31)
[2019-10-01] MEDS ORDERED: PRED20TA PO (18:06)
--- NOTE | 2019-10-01 19:15 | NUR ---
MS RN OPENING NOTES: RECEIVED PATIENT RESTING IN BED, A/O X4. NOT IN RESPIRATORY DISTRESS. ON O2 AT 2L/MIN. INSTRUCTED PATIENT TO CALL WHEN OOB, VERBALIZED UNDERSTANDING. CALL LIGHT WITHIN REACH. BED IN LOWEST AND LOCKED POSITION. BED ALARM ON.
[2019-10-01 20:00] VITALS: BP 140/76
[2019-10-01] MEDS: MIRTAZAPINE 15 MG TABLET PO SCH (20:07)
--- NOTE | 2019-10-01 20:42 | NUR ---
V/S TAKEN BY EVIN CABRAL, AND RECORDED. VITALS STABLE.AFEBRILE.
[2019-10-01] MEDS: TRAZODONE 50 MG TABLET PO SCH (22:44)
[2019-10-01] MEDS: QUETIAPINE FUMARATE 25 MG TABLET PO SCH (22:44)
[2019-10-02] MEDS: IPRATROPIUM NEB FS 0.5 MG/2.5 ML AMPUL.NEB NEB SCH ×3 (01:05→13:37)
[2019-10-02] MEDS: ALBUTEROL FS 2.5 MG/0.5 ML VIAL.NEB NEB SCH ×3 (01:05→13:38)
[2019-10-02] MEDS: IV D5/ 0.9% NACL 1,000 ML IV PRN (03:26)
--- NOTE | 2019-10-02 06:32 | NUR ---
MS RN CLOSING NOTES: PATIENT IS RESTING IN BED. VITALS STABLE. URINAL AT THE BEDSIDE. CALL LIGHT WITHIN REACH. NO COMPLAIN OF PAIN. NO SOB NOTED. WITH O2 AT 2L/MIN. BED ALARM ON. BED IN LOWEST AND LOCKED POSITION. WILL BE D/C TODAY, WILL ENDORSE TO THE NEXT SHIFT. RESTED THROUGHOUT THE NIGHT.
[2019-10-02 06:35] LABS: CALCIUM, SERUM 7.8 mg/dL (8.5-10.1); CARBON DIOXIDE 34 mmol/L (21-32); CHLORIDE 104 mmol/L (98-107); CREATININE 0.8 mg/dL (0.6-1.3); GLUCOSE 108 mg/dL (74-106); PHOSPHORUS 2.7 mg/dL (2.5-4.9); POTASSIUM 3.6 mmol/L (3.5-5.1); SODIUM SERUM 142 mmol/L (136-145); UREA NITROGEN, BLOOD 24 mg/dL (7-18)
--- NOTE | 2019-10-02 07:28 | NUR ---
MS RN OPENING NOTES RECEIVED PATIENT AWAKE IN BED IN NO ACUTE SIGNS OF DISTRESS. A/O X 3. ABLE TO MAKE NEEDS KNOWN, DENIES PAIN OR ANY DISCOMFORTS AT THIS TIME. ON 02 VIA N/C AT 2LPM, TOLERATING WELL WITH NO SOB NOTED. IV ACCESS ON LFA G #20 INTACT AND PATENT, IVF OF D5 NS @ 75ML/HR INFUSING WELL, NO S/S OF INFILTRATIONS NOTED. SAFETY MEASURES IN PLACE: CALL LIGHT WITHIN REACH. BED IN LOWEST AND LOCKED POSITION WITH SR UP X2. WILL CONTINUE TO MONITOR
[2019-10-02 08:00] VITALS: BP 146/73
[2019-10-02] MEDS: PANTOPRAZOLE 40 MG TABLET.DR PO SCH (08:23)
[2019-10-02] MEDS: MONTELUKAST SODIUM (10MG) 10 MG TABLET PO SCH (08:23)
[2019-10-02] MEDS: MELOXICAM 7.5 MG TABLET PO SCH (08:23)
[2019-10-02] MEDS: FAMOTIDINE (20 MG) 20 MG TABLET PO SCH (08:23)
[2019-10-02] MEDS: CHOLECALCIFEROL 1,000 UNIT TABLET (VIT D3) PO SCH (08:24)
[2019-10-02] MEDS: FLUTICASONE/VILANTEROL 1 EACH BLST.W.DEV IH SCH (08:24)
[2019-10-02] MEDS: GABAPENTIN 300 MG CAPSULE PO SCH (08:24)
[2019-10-02] MEDS: DOXYCYCLINE HYCLATE (100 MG) 100 MG TABLET PO SCH (08:24)
[2019-10-02] MEDS: MEMANTINE HCL 5 MG TABLET PO SCH (08:24)
[2019-10-02] MEDS: ESCITALOPRAM OXALATE (10 MG) 10 MG TABLET PO SCH (08:24)
[2019-10-02] MEDS ORDERED: predniSONE 20 MG TABLET PO SCH (09:00)
[2019-10-02 16:00] VITALS: BP 132/79
[2019-10-02] MEDS: CEFTRIAXONE 1 G in IV D5W 50 ML IV SCH (17:40)
--- NOTE | 2019-10-02 19:11 | NUR ---
RN DISCHARGED NOTES PT DISCHARGED HOME IN MEDICAL STABLE CONDITION. A/O X3 AND SAME ABLE TO MAKE NEEDS KNOWN. V/S TAKEN AND RECORDED. SKIN IS INTACT. ALL BELONGINGS ACCOUNTED FOR AND SIGN FORM. IV ACCESS ON LFA REMOVED WITH NO BLEEDING NOTED, DRY DRESSING APPLIED. NAME ARMBAND REMOVED. HEALTH TEACHINGS GIVEN TO PT AND SHARI FRENCH ND BOTH VERBALIZED UNDERSTANDING. HOME MEDS RETURNED TO [facility]. PT LEFT UNIT AT 1905 VIA WHEELCHAIR ACCOMPANIED BY GATEHOUSE ATTENDANT AND SHARI LAMBERT . AWARE OF DISCHARGE
[2019-10-25] MEDS ORDERED: AZIT250T13 PO (15:34)
[2019-10-25] MEDS ORDERED: ALBU18HF2 INH (15:34)
[2019-10-25] MEDS ORDERED: METH4TAB3 PO (15:34)
== END 2019-10-02 19:05 | disposition home or self-care (01) | DRG 189 ==
LOC: MEDSG2 14:28
PROVIDERS: ADMIT Legal Medicine; ATTEND Legal Medicine
DX: J96.01 Acute respiratory failure with hypoxia (principal); E43 Unspecified severe protein-calorie malnutrition; G93.41 Metabolic encephalopathy; J44.1 Chronic obstructive pulmonary disease with (acute) exacerbation; J47.0 Bronchiectasis with acute lower respiratory infection; R64 Cachexia; J96.02 Acute respiratory failure with hypercapnia; G62.9 Polyneuropathy, unspecified; D64.9 Anemia, unspecified; E86.0 Dehydration; F03.90 Unspecified dementia, unspecified severity, without behavioral disturbance, psychotic disturbance, mood disturbance, and anxiety; R63.0 Anorexia; Z68.21 Body mass index [BMI] 21.0-21.9, adult; M19.90 Unspecified osteoarthritis, unspecified site; F32.9 Major depressive disorder, single episode, unspecified; I25.10 Atherosclerotic heart disease of native coronary artery without angina pectoris; F41.1 Generalized anxiety disorder; R53.81 Other malaise; E87.6 Hypokalemia; N40.0 Benign prostatic hyperplasia without lower urinary tract symptoms; K21.9 Gastro-esophageal reflux disease without esophagitis; J20.9 Acute bronchitis, unspecified; I34.0 Nonrheumatic mitral (valve) insufficiency; I10 Essential (primary) hypertension; T38.0X5A Adverse effect of glucocorticoids and synthetic analogues, initial encounter; Y92.89 Other specified places as the place of occurrence of the external cause; D72.829 Elevated white blood cell count, unspecified
CPT/HCPCS: 36415; 36600; 71045-TC; 80048-TC; 80053-TC; 80061-TC; 81000-TC; 82272-TC; 82728-TC; 82803-TC; 83540-TC; 83735-TC; 83880; 84100-TC; 85025-TC; 87081-TC; 87086-TC; 92521; 93307-TC; 94799-TC; 97110-TC; 97116-TC; 97530-TC; G0378; J0696; J2930; J3475; J3490; J7042; J7060; J7070

== ENCOUNTER 2019-10-19 21:30 | Inpatient (IN) | payer MEDICARE, OTHER ==
[~2019-10-19] VITALS: Ht 167.6 cm; Wt 53.5 kg
[~2019-10-19 21:30] MED LIST changes: -ALBU2SYR3 PO; +FAMO20TA8 PO; -LORA-259 PO; +MONT10TA22 PO; +PRED20TA PO; +QUET25TA PO; -RANI150C4 PO
--- NOTE | 2019-10-19 21:56 | NUR ---
PATIENT CAME TO ER BED 8 C/O MIDSTERNAL CHEST PAIN. PATIENT HAS A HX OF COPD. 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 PT ALSO TOOK 500MG OF TYLENOL 1HR FAA CERTIFIED POWERPLANT MECHANIC. PT IS CITIZEN OF [place] AND [place] SPEAK, AAOX4. BREATHING EVENLY AND UNLABORED ON 2L OF N/C. CONNECTED TO ARCHITECTURAL TECHNICIAN.
[2019-10-19] MEDS ORDERED: NITROGLYCERIN PACKET 1 GM PACKET ONE (22:18)
[2019-10-19] MEDS ORDERED: ASPIRIN 81 MG TAB.CHEW ONE (22:19)
--- NOTE | 2019-10-19 22:22 | NUR ---
PATIENT UNABLE TO URINATE AT THIS TIME WILL TRY AGAIN.
[2019-10-19] MEDS ORDERED: NITROGLYCERIN 0.4 MG/TAB BOTTLE SL ONE (22:30)
[2019-10-19] MEDS ORDERED: NITROGLYCERIN PACKET 1 GM PACKET TD ONE (22:30)
[2019-10-19] MEDS ORDERED: ASPIRIN 81 MG TAB.CHEW PO ONE (22:30)
[2019-10-19 22:33] LABS: BASOPHILS % (AUTO) 0.3 % (0.0-2.0); EOSINOPHILS % (AUTO) 1.6 % (0.0-6.0); HEMATOCRIT 27 % (39-51); HEMOGLOBIN 8.7 g/dL (13.5-17.5); LYMPHOCYTES # (AUTO) 0.8 /CMM (0.8-4.8); LYMPHOCYTES % (AUTO) 10.4 % (20.0-44.0); MEAN CORPUSCULAR HGB CONC 32 g/dl (31.0-36.0); MEAN CORPUSCULAR VOLUME 92 fL (80-96); MONOCYTES % (AUTO) 13.2 % (2.0-12.0); NEUTROPHILS # (AUTO) 5.8 /CMM (1.8-8.9); NEUTROPHILS % (AUTO) 74.5 % (43.0-81.0); PLATELET COUNT (AUTO) 241 /CMM (150-450); RED BLOOD CELL COUNT(AUTO) 2.98 MIL/uL (4.5-6.0); WHITE BLOOD COUNT (AUTO) 7.7 K/uL (4.3-11.0)
[2019-10-19 22:44] LABS: CALCIUM, SERUM 8.8 mg/dL (8.5-10.1); POTASSIUM 3.7 mmol/L (3.5-5.1)
[2019-10-19 23:00] LABS: ALBUMIN 2.4 g/dL (3.4-5.0); BILIRUBIN,DIRECT 0.1 mg/dL (0.0-0.2); BILIRUBIN,TOTAL 0.1 mg/dL (0.2-1.0); TOTAL PROTEIN, SERUM 6.5 g/dL (6.4-8.2)
[2019-10-19] MEDS ORDERED: TRAZ-182 PO (23:10)
[2019-10-19] MEDS ORDERED: GABA-534 PO (23:11)
--- NOTE | 2019-10-19 23:13 | NUR ---
SHARI MARTINO [phone]
[2019-10-19 23:16] LABS: ABG BASE EXCESS 4.4 mmol/L; ABG OXYGEN SATURATION 96.9 % (92.0-98.5); ABG PCO2 45.9 mmHg (35.0-45.0); ABG PH 7.423 (7.350-7.450); ABG PO2 97.1 mmHg (75.0-100.0); AaDO2 48.4 mmHg; COHb 0.4 % (0.5-1.5); MetHb 0.6 % (0.0-1.5); O2Hb 95.9 % (94.0-97.0); SITE, ABG Right Radial; VENT MODE, BG Nasal Cannula
--- NOTE | 2019-10-19 23:22 | NUR ---
PATIENT UNABLE TO PROVIDE URINE AT THIS TIME. WILL NOTIFY
--- NOTE | 2019-10-19 23:35 | NUR ---
LAB EXPERENCING TECHNICAL DIFFICULTIES WITH MACHINE, D-DIMER RESULTS WILL BE DELAYED.
[2019-10-19] MEDS ORDERED: LIDOCAINE 2% JEL UROJET 10 ML MM ONE (23:44)
--- NOTE | 2019-10-19 23:56 | NUR ---
urine collected and sent to lab
[2019-10-19] MEDS ORDERED: LEVOFLOXACIN 750 MG /D5W 150ML 150 ML IV ONE (23:59)
[2019-10-20] MEDS ORDERED: LEVOFLOXACIN 750 MG /D5W 150ML PIGGYBACK IV ONE
[2019-10-20] MEDS ORDERED: LIDOCAINE 2% JEL UROJET 10 ML MM ONE
[2019-10-20 00:04] LABS: APPEARANCE,URINE Clear (CLEAR); BILIRUBIN,URINE Negative (NEGATIVE); BLOOD, URINE Negative Ery/uL (NEGATIVE); COLOR,URINE Yellow (YELLOW); KETONES,URINE Trace (NEGATIVE); LEUKOCYTE ESTERASE ,URINE Negative (NEGATIVE); NITRITE, URINE Negative (NEGATIVE); PH,URINE 5.5 (5.0-8.0); PROTEIN,URINE 100 mg/dl (NEGATIVE); UGLUCOSE Negative (NEGATIVE); UROBILINOGEN,URINE 0.2 EU/dL (0.2)
[2019-10-20 00:08] LABS: BACTERIA,URINE Rare /HPF (None Seen); RBC,URINE NONE SEEN /HPF (0-2); SQUAMOUS EPITHELIAL CELL,UR Few /HPF (None Seen); WBC,URINE NONE SEEN /HPF (0-3)
--- NOTE | 2019-10-20 00:24 | NUR ---
DR. VARGAS PAGED PER ER ORDER.
--- NOTE | 2019-10-20 00:42 | NUR ---
ER TALKING TO DR. VARGAS REGARDING PT ADMISSION.
--- NOTE | 2019-10-20 02:18 | NUR ---
TELE 308-2
--- NOTE | 2019-10-20 02:39 | NUR ---
REPORT GIVEN TO ALEXIA RAE FOR KARIN.
--- NOTE | 2019-10-20 03:05 | NUR ---
VEHICLE GLASS TECHNICIAN ADMISSION NOTES RECEIVED PATIENT FROM ER VIA GURNEY SAFELY TRANSFERRED TO BED, AWAKE ALERT AND ORIENTED X2 ABLE TO MAKE NEEDS KNOWN AND ANSWER SIMPLE QUESTIONS, RESPIRATIONS NOTED LABORED ON EXERTION, ON 2 L VIA NC TOLERATING WELL SPO2 97%. IV SITE TO RIGHT AC #20G INTACT AND PATENT, NO REDNESS, NO INFILTRATION PRESENT, BODY ASSESSMENT DONE, BOTH HEEL REDNESS, SACRAL SCATTERED REDNESS, LEFT HIP REDNESS, AND PERINEAL REDNESS NOTED, CLEANSED AND PROVIDED SKIN BARRIER CREAM OFFLOADED, REPOSITIONED, BELONGINGS LIST DONE, ORIENTED TO STAFF AND CALL LIGHT AND KEPT WITHIN REACH, BED ALARM IN PLACE, LOW BED AND LOCKED, ORDERS RECEIVED FROM ER FROM NOTED AND CARRIED. WILL FOLLOW PER MD ORDERS, AT THIS TIME REMAINS CLEAN AND COMFORTABLE. WILL CONTINUE TO MONITOR, ADMITTING DX COPD EXACERBATION. TELE . ON AIRPLANE AND ENGINE INSPECTOR SR WITH BBB. NO DISTRESS PRESENT. HR WNL 82
[2019-10-20 03:30] VITALS: BP 136/69
[2019-10-20] MEDS ORDERED: CEFTRIAXONE 1 G VIAL ONE (03:55)
[2019-10-20] MEDS ORDERED: IPRATROPIUM BROMIDE 14 GM INHALER (or 12.9 GM) IH PRN (04:00)
[2019-10-20] MEDS ORDERED: IPRATROPIUM NEB FS 0.5 MG/2.5 ML AMPUL.NEB NEB PRN ×2 (04:00→04:30)
[2019-10-20] MEDS ORDERED: ALBUTEROL HALF STRENGTH 1.25 MG/3 ML VIAL.NEB NEB PRN (04:00)
[2019-10-20] MEDS ORDERED: IV NS 0.9% 1,000 ML BAG IV SCH (04:00)
[2019-10-20] MEDS: CEFTRIAXONE 1 G in IV D5W 50 ML IV SCH (04:06)
[2019-10-20] MEDS: IV NS 0.9% 1,000 ML IV PRN (04:07)
[2019-10-20] MEDS: IPRATROPIUM NEB FS 0.5 MG/2.5 ML AMPUL.NEB NEB SCH ×4 (04:09→19:40)
[2019-10-20] MEDS: methylPREDNISolone SOD SUCC 40 MG/ML VIAL IV SCH ×3 (04:09→21:25)
[2019-10-20] MEDS: ALBUTEROL HALF STRENGTH 1.25 MG/3 ML VIAL.NEB NEB SCH ×4 (04:09→19:40)
--- NOTE | 2019-10-20 06:18 | NUR ---
ROLLER BEARING INSPECTOR CLOSING NOTES PATIENT IN BED, AWAKE ALERT AND ORIENTED X2 ABLE TO MAKE NEEDS KNOWN AND ANSWER SIMPLE QUESTIONS ABLE TO ANSWER QUESTION WITH CASH POSTER RESPIRATIONS NOTED LABORED ON EXERTION, HOWEVER AT THIS TIME REMAINS COMFORTABLE, RT TREATMENT DUONEB WAS PROVIDED AND NOTED WITH RELIEF, ON 2 L VIA NC TOLERATING WELL SPO2 97%. IV SITE TO RIGHT AC #20G INTACT AND PATENT, NO REDNESS, NO INFILTRATION PRESENT,IVF RUNNING ORDERED ABX IV GIVEN ORDERED, NO ADVERSE REACTIONS NOTED,ALL DUE MEDS GIVEN NO ASE. BOTH HEEL REDNESS, SACRAL SCATTERED REDNESS, LEFT HIP REDNESS, AND PERINEAL REDNESS AREAS OFFLOADED, KEPT CLEAN AND DRY, REPOSITIONED, CALL LIGHT KEPT WITHIN REACH, BED ALARM IN PLACE, LOW BED AND LOCKED, MD ORDERS FOLLOWED, AT THIS TIME REMAINS CLEAN AND COMFORTABLE. WILL CONTINUE TO MONITOR, AND ENDORSE TO NEXT SHIFT ALL NEEDS ATTENDED. ON GEAR TOOTH GRINDING MACHINE OPERATOR SR WITH BBB WITH PACS NO DISTRESS PRESENT, NO PAIN. NO DISTRESS PRESENT. HR WNL 76
[2019-10-20 07:17] LABS: CALCIUM, SERUM 8.4 mg/dL (8.5-10.1); CREATININE 0.7 mg/dL (0.6-1.3); POTASSIUM 3.8 mmol/L (3.5-5.1)
[2019-10-20 07:35] LABS: BASOPHILS % (AUTO) 0.3 % (0.0-2.0); EOSINOPHILS % (AUTO) 2.4 % (0.0-6.0); HEMATOCRIT 26 % (39-51); HEMOGLOBIN 8.2 g/dL (13.5-17.5); LYMPHOCYTES # (AUTO) 0.9 /CMM (0.8-4.8); LYMPHOCYTES % (AUTO) 11.1 % (20.0-44.0); MEAN CORPUSCULAR HGB CONC 32 g/dl (31.0-36.0); MEAN CORPUSCULAR VOLUME 90 fL (80-96); MONOCYTES # (AUTO) 0.7 /CMM (0.1-1.30); MONOCYTES % (AUTO) 8.1 % (2.0-12.0); NEUTROPHILS # (AUTO) 6.4 /CMM (1.8-8.9); NEUTROPHILS % (AUTO) 78.1 % (43.0-81.0); PLATELET COUNT (AUTO) 221 /CMM (150-450); RED BLOOD CELL COUNT(AUTO) 2.83 MIL/uL (4.5-6.0); WHITE BLOOD COUNT (AUTO) 8.1 K/uL (4.3-11.0)
[2019-10-20] MEDS ORDERED: ERGO500014 PO (07:54)
[2019-10-20 08:00] VITALS: BP 154/80
--- NOTE | 2019-10-20 08:30 | NUR ---
ms rn received on bed, awake,alert,oriented x2,not in any form of distress, respirations even and unlabored,no sob noted, lungs are diminished,abdomen soft,positive bowel sounds,denies pain at this time,all needs attended.
--- NOTE | 2019-10-20 09:35 | NUR ---
ms mejía breakfast served,due meds given,tolerated well.
--- NOTE | 2019-10-20 10:10 | NUR ---
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 RECOMMENDATIONS MADE FOR SKIN PROTECTION AND SKIN CARE. DISCUSSED WITH NURSING STAFF. WILL SEE PRN. Liliya Melchor IN AGREEMENT WITH PLAN OF CARE. CURRENT SENIA SCORE IS 13. Addendum: 10/20/19 at 1011 by SHEILA MATHIS WNDNU Amended: Links added.
[2019-10-20] MEDS: Z GUARD REMEDY 2 OZ OINT TP SCH (10:30)
[2019-10-20] MEDS ORDERED: Z GUARD REMEDY 2 OZ OINT TP PRN (10:30)
[2019-10-20] MEDS: ENOXAPARIN SODIUM 40 MG/0.4 ML DISP.SYRIN SQ SCH (11:23)
[2019-10-20] MEDS: PANTOPRAZOLE 40 MG TABLET.DR PO SCH (11:23)
--- NOTE | 2019-10-20 12:30 | NUR ---
ms rn bs - 133 - coverage not given,patient did not eat lunch, only bites.
[2019-10-20] MEDS ORDERED: QUETIAPINE FUMARATE 25 MG TABLET PO PRN (13:00)
[2019-10-20 16:00] VITALS: BP 128/85
[2019-10-20] MEDS: MEMANTINE HCL 5 MG TABLET PO SCH (17:02)
--- NOTE | 2019-10-20 17:30 | NUR ---
ms rn patient eating, bs - 132 - patient refused insulin.no distress noted.
[2019-10-20] MEDS: TRAZODONE 50 MG TABLET PO SCH (18:03)
--- NOTE | 2019-10-20 18:16 | NUR ---
ms rn on bed, no distress noted,all needs attended.
--- NOTE | 2019-10-20 19:00 | NUR ---
MS RN NOTE RECEIVED PT IN STABLE CONDITION A/O X3, NOTED IN BED. NO SIGNS OF SOB OR DISTRESS, NO C/O PAIN OR N/V. IV IN RAC #[address] ALL CURRENT NEEDS ATTENDED TO. BED LOW, LOCKED, UPPER RAILS UP, AND CALL LIGHT WITHIN REACH. WILL CONT. TO MONITOR.
[2019-10-20 20:20] VITALS: BP 133/66
[2019-10-20] MEDS: MIRTAZAPINE 15 MG TABLET PO SCH (21:25)
[2019-10-21] MEDS: ALBUTEROL HALF STRENGTH 1.25 MG/3 ML VIAL.NEB NEB SCH ×4 (01:56→19:49)
[2019-10-21] MEDS: CEFTRIAXONE 1 G in IV D5W 50 ML IV SCH (03:38)
[2019-10-21] MEDS: IV NS 0.9% 1,000 ML IV PRN (03:38)
[2019-10-21] MEDS: methylPREDNISolone SOD SUCC 40 MG/ML VIAL IV SCH ×3 (04:01→21:04)
--- NOTE | 2019-10-21 06:14 | NUR ---
MS RN NOTE PT REMAINS IN STABLE CONDITION A/O X3, NOTED IN BED. NO SIGNS OF SOB OR DISTRESS, NO C/O PAIN OR N/V. IV IN RAC #[address] WITH IVF INFUSING. ALL CURRENT NEEDS ATTENDED TO. BED LOW, LOCKED, UPPER RAILS UP, AND CALL LIGHT WITHIN REACH. WILL CONT. TO MONITOR AND ENDORSE TO NEXT SHIFT FOR KARIN.
--- NOTE | 2019-10-21 07:30 | NUR ---
ms rn [id number] on bed, awake,alert,oriented x2,not in any form of distress, respirations even and unlabored,no sob noted, lungs are clear,abdomen soft,[positive bowel sounds ,denies pain at this time,all needs attended.
[2019-10-21 08:00] VITALS: BP 152/94
[2019-10-21] MEDS: IPRATROPIUM NEB FS 0.5 MG/2.5 ML AMPUL.NEB NEB SCH ×3 (08:02→19:49)
[2019-10-21] MEDS: MEMANTINE HCL 5 MG TABLET PO SCH ×2 (09:01→18:32)
[2019-10-21] MEDS: MONTELUKAST SODIUM (10MG) 10 MG TABLET PO SCH (09:01)
[2019-10-21] MEDS: ESCITALOPRAM OXALATE (10 MG) 10 MG TABLET PO SCH (09:01)
[2019-10-21] MEDS: PANTOPRAZOLE 40 MG TABLET.DR PO SCH (09:01)
[2019-10-21] MEDS: GABAPENTIN 300 MG CAPSULE PO SCH (09:01)
[2019-10-21] MEDS: MELOXICAM 7.5 MG TABLET PO SCH (09:03)
[2019-10-21] MEDS: ENOXAPARIN SODIUM 40 MG/0.4 ML DISP.SYRIN SQ SCH (09:04)
--- NOTE | 2019-10-21 09:30 | NUR ---
ms mejía breakfast served,due meds given,tolerated well.
[2019-10-21] MEDS: Z GUARD REMEDY 2 OZ OINT TP SCH (10:19)
--- NOTE | 2019-10-21 11:00 | NUR ---
ms rn was seen by dr. cobb w/ orders made and carried out.
[2019-10-21 16:00] VITALS: BP 142/70
[2019-10-21] MEDS: TRAZODONE 50 MG TABLET PO SCH (18:32)
--- NOTE | 2019-10-21 19:00 | NUR ---
ms rn on bed, no distress noted,all needs attended.
[2019-10-21 20:00] VITALS: BP 128/64
[2019-10-21] MEDS: MIRTAZAPINE 15 MG TABLET PO SCH (21:04)
[2019-10-22] MEDS: ALBUTEROL HALF STRENGTH 1.25 MG/3 ML VIAL.NEB NEB SCH ×4 (00:42→19:29)
[2019-10-22] MEDS: CEFTRIAXONE 1 G in IV D5W 50 ML IV SCH (03:08)
--- NOTE | 2019-10-22 06:12 | NUR ---
MS RN NOTE PT REMAINS IN STABLE CONDITION A/O X3, NOTED RESTING IN BED. NO SIGNS OF SOB OR DISTRESS, NO C/O PAIN OR N/V. IV IN RAC #[address] ALL CURRENT NEEDS ATTENDED TO. BED LOW, LOCKED, UPPER RAILS UP, AND CALL LIGHT WITHIN REACH. WILL CONT. TO MONITOR AND ENDORSE TO NEXT SHIFT FOR KARIN.
[2019-10-22 06:43] LABS: HEMATOCRIT 29 % (39-51); HEMOGLOBIN 9.2 g/dL (13.5-17.5); LYMPHOCYTES # (AUTO) 0.7 /CMM (0.8-4.8); LYMPHOCYTES % (AUTO) 6.2 % (20.0-44.0); MEAN CORPUSCULAR HGB CONC 32 g/dl (31.0-36.0); MEAN CORPUSCULAR VOLUME 90 fL (80-96); MONOCYTES # (AUTO) 0.7 /CMM (0.1-1.30); MONOCYTES % (AUTO) 6.4 % (2.0-12.0); NEUTROPHILS % (AUTO) 87.4 % (43.0-81.0); PLATELET COUNT (AUTO) 304 /CMM (150-450); RED BLOOD CELL COUNT(AUTO) 3.19 MIL/uL (4.5-6.0); WHITE BLOOD COUNT (AUTO) 11.4 K/uL (4.3-11.0)
[2019-10-22 06:47] LABS: CALCIUM, SERUM 8.5 mg/dL (8.5-10.1); MAGNESIUM 1.9 mg/dL (1.8-2.4)
[2019-10-22] MEDS: IPRATROPIUM NEB FS 0.5 MG/2.5 ML AMPUL.NEB NEB SCH ×3 (07:35→19:29)
--- NOTE | 2019-10-22 07:56 | NUR ---
MS RN OPENING NOTES RECEIVED PT AWAKE IN BED IN NO ACUTE SIGNS OF DISTRESS. A/O X. VERBALLY RESPONSIVE, DENIES PAIN OR ANY DISCOMFORTS AT THIS TIME. ON 02 VIA N/C @ 2LPM, TOLERATING WELL WITH NO SOB NOTED. IV SL ON RAC #20 INTACT PATENT AND FLUSHES WELL. SAFETY MEASURES IN PLACE: BED LOW, LOCKED, UPPER RAILS UP AND CALL LIGHT WITHIN REACH. WILL CONTINUE TO MONITOR PT ACCORDINGLY
[2019-10-22 08:00] VITALS: BP 137/83
[2019-10-22] MEDS: methylPREDNISolone SOD SUCC 40 MG/ML VIAL IV SCH ×2 (09:08→21:02)
[2019-10-22] MEDS: ESCITALOPRAM OXALATE (10 MG) 10 MG TABLET PO SCH (09:08)
[2019-10-22] MEDS: MEMANTINE HCL 5 MG TABLET PO SCH ×2 (09:08→17:01)
[2019-10-22] MEDS: MELOXICAM 7.5 MG TABLET PO SCH (09:08)
[2019-10-22] MEDS: MONTELUKAST SODIUM (10MG) 10 MG TABLET PO SCH (09:08)
[2019-10-22] MEDS: GABAPENTIN 300 MG CAPSULE PO SCH (09:08)
[2019-10-22] MEDS: Z GUARD REMEDY 2 OZ OINT TP SCH (09:09)
[2019-10-22] MEDS: ENOXAPARIN SODIUM 40 MG/0.4 ML DISP.SYRIN SQ SCH (09:09)
[2019-10-22] MEDS: PANTOPRAZOLE 40 MG TABLET.DR PO SCH (09:10)
[2019-10-22 16:20] VITALS: BP 152/84
[2019-10-22] MEDS: TRAZODONE 50 MG TABLET PO SCH (17:01)
--- NOTE | 2019-10-22 19:01 | NUR ---
MS RN CLOSING NOTES PT AWAKE IN BED WATCHING TV AT THIS TIME. HOB ELEVATED. A/O X3. VERBALLY RESPONSIVE, PLEASANT AND CALMED DURING THE DAY. ON SUPPLEMENTAL 02 VIA N/C @ 2LPM, TOLERATING WELL WITH NO ACUTE RESPIRATORY DISTRESS NOTED DURING SHIFT. IV SL ON RAC #20 INTACT PATENT AND FLUSHES WELL. SAFETY MEASURES IN PLACE: BED LOW, LOCKED, UPPER RAILS UP AND CALL LIGHT WITHIN REACH. ALL NEEDS AND CARE ATTENDED WELL.WILL ENDORSE TO BOILER TECHNICIAN NURSE FOR KARIN.
--- NOTE | 2019-10-22 19:40 | NUR ---
MS RN OPENING NOTES PATIENT AWAKE AND RESTING COMFORTABLY IN BED. A/OX3. ON 2L NC. PATIENT DENIES SOB OR PAIN AT THIS TIME. IV PRESENT ON RIGHT AC, SIZE 20, INTACT & PATENT, HEP LOCKED. SAFETY MEASURES IN PLACE. BED LOCKED, SEMI-WORTHINGTON'S POSITION, ALARM ON, SIDE RAILS X2, CALL LIGHT WITHIN REACH. WILL CONTINUE TO MONITOR.
[2019-10-22 20:00] VITALS: BP 154/86
[2019-10-22] MEDS: MIRTAZAPINE 15 MG TABLET PO SCH (21:02)
[2019-10-22] MEDS ORDERED: MONTELUKAST SODIUM (10MG) 10 MG TABLET PO SCH (22:00)
[2019-10-23] MEDS: ALBUTEROL HALF STRENGTH 1.25 MG/3 ML VIAL.NEB NEB SCH ×4 (00:55→19:01)
[2019-10-23] MEDS: CEFTRIAXONE 1 G in IV D5W 50 ML IV SCH (03:39)
[2019-10-23 06:24] LABS: BASOPHILS % (AUTO) 0.1 % (0.0-2.0); HEMATOCRIT 29 % (39-51); HEMOGLOBIN 9.2 g/dL (13.5-17.5); LYMPHOCYTES # (AUTO) 1.1 /CMM (0.8-4.8); MEAN CORPUSCULAR HGB CONC 32 g/dl (31.0-36.0); MEAN CORPUSCULAR VOLUME 90 fL (80-96); MONOCYTES # (AUTO) 0.9 /CMM (0.1-1.30); MONOCYTES % (AUTO) 8.1 % (2.0-12.0); NEUTROPHILS # (AUTO) 9.1 /CMM (1.8-8.9); NEUTROPHILS % (AUTO) 81.8 % (43.0-81.0); PLATELET COUNT (AUTO) 319 /CMM (150-450); WHITE BLOOD COUNT (AUTO) 11.1 K/uL (4.3-11.0)
[2019-10-23 06:41] LABS: CALCIUM, SERUM 8.6 mg/dL (8.5-10.1); CREATININE 0.8 mg/dL (0.6-1.3)
--- NOTE | 2019-10-23 07:15 | NUR ---
MS BUTCH NOTES PATIENT IN BED ALERT ORIENTED X 3. NO ACUTE DISTRESS NOTED, BREATHING UNLABORED. NO SOB NOTED. IV ACCESS PATENT AND INTACT, NO REDNESS OR SWELLING NOTED. SAFETY MEASURES IN PLACE. CALL LIGHT WITHIN REACH. WILL CONTINUE TO MONITOR ACCORDINGLY. Addendum: 10/23/19 at 1604 by JAY MCCABE RN DISREGARD ABOVE NOTES WRONG PATIENT
--- NOTE | 2019-10-23 07:16 | NUR ---
MS RN NOTES PATIENT IN BED ALERT ORIENTED X 2-3. NO ACUTE DISTRESS NOTED, BREATHING UNLABORED. NO SOB NOTED. IV ACCESS PATENT AND INTACT, NO REDNESS OR SWELLING NOTED. SAFETY MEASURES IN PLACE. CALL LIGHT WITHIN REACH. WILL CONTINUE TO MONITOR ACCORDINGLY.
--- NOTE | 2019-10-23 07:17 | NUR ---
MS RN CLOSING NOTES PATIENT AWAKEN IN BED. A/O X2-3. ON 2L NC. NO S/S OF RESPIRATORY DISTRESS AND NO C/O PAIN AT THIS TIME. IV PRESENT ON RIGHT AC, SIZE 20, INTACT & PATENT, HEP LOCKED. SAFETY MEASURES IN PLACE. BED LOCKED, ALARM ON, SIDE RAILS X2, CALL LIGHT WITHIN REACH. WILL ENDORSE TO DAY SHIFT NURSE TO FOLLOW PLAN OF CARE.
[2019-10-23] MEDS: IPRATROPIUM NEB FS 0.5 MG/2.5 ML AMPUL.NEB NEB SCH ×3 (07:45→19:01)
[2019-10-23 08:19] VITALS: BP 148/92
[2019-10-23] MEDS: methylPREDNISolone SOD SUCC 40 MG/ML VIAL IV SCH ×2 (08:24→21:07)
[2019-10-23] MEDS: PANTOPRAZOLE 40 MG TABLET.DR PO SCH (08:24)
[2019-10-23] MEDS: ESCITALOPRAM OXALATE (10 MG) 10 MG TABLET PO SCH (08:24)
[2019-10-23] MEDS: GABAPENTIN 300 MG CAPSULE PO SCH (08:24)
[2019-10-23] MEDS: MONTELUKAST SODIUM (10MG) 10 MG TABLET PO SCH (08:25)
[2019-10-23] MEDS: MEMANTINE HCL 5 MG TABLET PO SCH ×2 (08:25→17:20)
[2019-10-23] MEDS: MELOXICAM 7.5 MG TABLET PO SCH (08:27)
[2019-10-23] MEDS: ENOXAPARIN SODIUM 40 MG/0.4 ML DISP.SYRIN SQ SCH (08:27)
[2019-10-23] MEDS: Z GUARD REMEDY 2 OZ OINT TP SCH (08:28)
[2019-10-23 08:29] LABS: LYMPHOCYTES % (MANUAL) 10 % (16-48); MONOCYTES % (MANUAL) 5 % (0-11.0); NEUTROPHILS % (MANUAL) 85 (42-76)
--- NOTE | 2019-10-23 13:00 | NUR ---
MS RN NOTES CALLED FAMILY LUIS FREED TO GET CONSENT FOR CT PULMONARY ANGIOGRAM, LEFT A MESSAGE, AWAITING FOR CALL BACK
[2019-10-23 16:07] VITALS: BP_SYST 132; BP_SYST 135; BP_DIAS 69; BP_DIAS 96
--- NOTE | 2019-10-23 16:12 | NUR ---
MS RN NOTES CALLED FAMILY AGAIN LUIS FREED TO GET CONSENT FOR CT PULMONARY ANGIOGRAM, LEFT A MESSAGE, AWAITING FOR CALL BACK
[2019-10-23] MEDS: TRAZODONE 50 MG TABLET PO SCH (17:20)
--- NOTE | 2019-10-23 18:47 | NUR ---
MS RN NOTES PATIENT IN BED ALERT ORIENTED X 2-3. NO ACUTE DISTRESS NOTED, BREATHING UNLABORED. NO SOB NOTED. IV ACCESS PATENT AND INTACT, NO REDNESS OR SWELLING NOTED.NEEDS ATTENDED AND ANTICIPATED. SAFETY MEASURES IN PLACE. CALL LIGHT WITHIN REACH. WILL ENDORSE TO NIGHT NURSE FOR CONTINUITY OF CARE.
--- NOTE | 2019-10-23 19:30 | NUR ---
MS RN OPENING NOTES PATIENT AWAKE IN BED. A/OX2-3. ON 1L NC. NO S/S OF ACUTE RESPIRATORY DISTRESS OR C/O PAIN AT THIS TIME. IV PRESENT ON RIGHT AC, SIZE 20, INTACT & PATENT, HEP LOCKED. SAFETY MEASURES IN PLACE. BED LOCKED, ALARM ON, SIDE RAILS X2, CALL LIGHT WITHIN REACH. WILL CONTINUE TO MONITOR.
[2019-10-23] MEDS ORDERED: IOHEXOL-350 100 ML VIAL IV ONE (19:41)
--- NOTE | 2019-10-23 19:45 | NUR ---
MS RN NOTES PATIENT TRANSPORTED VIA WHEELCHAIR TO RADIOLOGY FOR CT PULMONARY ANGIOGRAM
[2019-10-23 20:00] VITALS: BP 148/74
--- NOTE | 2019-10-23 20:02 | NUR ---
MS RN NOTES PATIENT RETURNED FROM RADIOLOGY
[2019-10-23] MEDS: MIRTAZAPINE 15 MG TABLET PO SCH (21:07)
[2019-10-24] MEDS: ALBUTEROL HALF STRENGTH 1.25 MG/3 ML VIAL.NEB NEB SCH ×4 (00:39→18:52)
[2019-10-24] MEDS: CEFTRIAXONE 1 G in IV D5W 50 ML IV SCH (03:11)
--- NOTE | 2019-10-24 07:24 | NUR ---
MS RN CLOSING NOTES PATIENT SLEEPING IN BED. A/OX2-3. ON 1L NC. NO S/S OF ACUTE RESPIRATORY DISTRESS OR C/O PAIN AT THIS TIME. IV PRESENT ON RIGHT AC, SIZE 20, INTACT & PATENT, HEP LOCKED. SAFETY MEASURES IN PLACE. BED LOCKED, ALARM ON, SIDE RAILS X2, CALL LIGHT WITHIN REACH. WILL ENDORSE TO DAY SHIFT NURSE TO FOLLOW PLAN OF CARE.
--- NOTE | 2019-10-24 07:30 | NUR ---
MS/RN Opening note Patient received AO x 2-3, able to responds all stimuli. Pt. does no c/o pain or discomfort, skin is warm to touch, clean/dry, intact IV site. Respiratory even and unlabored, no s/s of respiratory distress observed. Kept lower position of bed with elevated HOB. Call light within reach, will continue to monitor.
[2019-10-24] MEDS: IPRATROPIUM NEB FS 0.5 MG/2.5 ML AMPUL.NEB NEB SCH ×3 (07:33→18:52)
[2019-10-24 08:00] VITALS: BP 147/60
[2019-10-24] MEDS: methylPREDNISolone SOD SUCC 40 MG/ML VIAL IV SCH ×2 (08:30→21:10)
[2019-10-24] MEDS: PANTOPRAZOLE 40 MG TABLET.DR PO SCH (08:30)
[2019-10-24] MEDS: MEMANTINE HCL 5 MG TABLET PO SCH ×2 (08:30→17:05)
[2019-10-24] MEDS: ESCITALOPRAM OXALATE (10 MG) 10 MG TABLET PO SCH (08:30)
[2019-10-24] MEDS: GABAPENTIN 300 MG CAPSULE PO SCH (08:30)
[2019-10-24] MEDS: MONTELUKAST SODIUM (10MG) 10 MG TABLET PO SCH (08:30)
[2019-10-24] MEDS: MELOXICAM 7.5 MG TABLET PO SCH (08:30)
[2019-10-24] MEDS: ENOXAPARIN SODIUM 40 MG/0.4 ML DISP.SYRIN SQ SCH (08:31)
[2019-10-24] MEDS: Z GUARD REMEDY 2 OZ OINT TP SCH (08:32)
[2019-10-24] MEDS: ACETYLCYSTEINE 10% SOLN 400 MG/4 ML VIAL NEB SCH ×3 (13:39→22:59)
[2019-10-24 15:52] VITALS: BP 123/60
[2019-10-24 16:00] VITALS: BP 123/60
[2019-10-24] MEDS: TRAZODONE 50 MG TABLET PO SCH (17:05)
--- NOTE | 2019-10-24 18:15 | NUR ---
MS/RN Closing note Patient in bed comfortably, no acute distress observed. Respiratory even and unlabored with oxygen at 1LPM. Skin is warm to touch, keep clean/dry, provided skin care, intact IV site. Kept lower position of be with elevated HOB, call light within reach, all needs met. Will endorse power and recovery shift engineer.
--- NOTE | 2019-10-24 19:10 | NUR ---
MS RN NOTES: RECEIVED PATIENT Patient in bed, awake, A/O 3. 97% on Oxygen at 1LPM, tolerating well, denies shortness of breath on exertion. Fall precaution maintained.
[2019-10-24 20:00] VITALS: BP_SYST 122; BP_SYST 143; BP_DIAS 75; BP_DIAS 80
[2019-10-24 20:15] VITALS: BP 143/75
[2019-10-24] MEDS: MIRTAZAPINE 15 MG TABLET PO SCH (21:10)
[2019-10-25] MEDS: ALBUTEROL HALF STRENGTH 1.25 MG/3 ML VIAL.NEB NEB SCH ×4 (01:52→19:08)
[2019-10-25] MEDS: CEFTRIAXONE 1 G in IV D5W 50 ML IV SCH (04:27)
[2019-10-25 06:11] LABS: BASOPHILS % (AUTO) 0.1 % (0.0-2.0); HEMATOCRIT 30 % (39-51); HEMOGLOBIN 9.7 g/dL (13.5-17.5); LYMPHOCYTES # (AUTO) 1.4 /CMM (0.8-4.8); LYMPHOCYTES % (AUTO) 8.5 % (20.0-44.0); MEAN CORPUSCULAR HGB CONC 32 g/dl (31.0-36.0); MEAN CORPUSCULAR VOLUME 90 fL (80-96); MONOCYTES # (AUTO) 1.1 /CMM (0.1-1.30); NEUTROPHILS # (AUTO) 13.9 /CMM (1.8-8.9); NEUTROPHILS % (AUTO) 84.4 % (43.0-81.0); PLATELET COUNT (AUTO) 309 /CMM (150-450); RED BLOOD CELL COUNT(AUTO) 3.36 MIL/uL (4.5-6.0); WHITE BLOOD COUNT (AUTO) 16.4 K/uL (4.3-11.0)
--- NOTE | 2019-10-25 06:25 | NUR ---
MS RN NOTE: REPORT NOTE Patient in bed, remains on supplemental Oxygen 1LPM, tolerating well. IV antibiotic as scheduled, no acute events overnight. Fall precaution maintained. Plan for cont IV antibiotic, cont IV steroid, and breathing tx. Will endorse to Oncoming RN.
[2019-10-25 06:28] LABS: CALCIUM, SERUM 8.1 mg/dL (8.5-10.1); CREATININE 0.8 mg/dL (0.6-1.3); MAGNESIUM 1.8 mg/dL (1.8-2.4); PHOSPHORUS 2.4 mg/dL (2.5-4.9)
[2019-10-25 08:00] VITALS: BP 163/84
[2019-10-25] MEDS: IPRATROPIUM NEB FS 0.5 MG/2.5 ML AMPUL.NEB NEB SCH ×3 (08:22→19:08)
[2019-10-25] MEDS: ACETYLCYSTEINE 10% SOLN 400 MG/4 ML VIAL NEB SCH ×3 (08:22→22:34)
[2019-10-25] MEDS ORDERED: METH4TAB3 PO (15:34)
[2019-10-25] MEDS ORDERED: AZIT250T13 PO (15:34)
[2019-10-25] MEDS ORDERED: ALBU18HF2 INH (15:34)
[2019-10-25 16:00] VITALS: BP 128/75
[2019-10-25] MEDS: methylPREDNISolone SOD SUCC 40 MG/ML VIAL IV SCH (16:23)
[2019-10-25] MEDS: GABAPENTIN 300 MG CAPSULE PO SCH (16:23)
[2019-10-25] MEDS: PANTOPRAZOLE 40 MG TABLET.DR PO SCH (16:23)
[2019-10-25] MEDS: MEMANTINE HCL 5 MG TABLET PO SCH (16:24)
[2019-10-25] MEDS: MONTELUKAST SODIUM (10MG) 10 MG TABLET PO SCH (16:24)
[2019-10-25] MEDS: ENOXAPARIN SODIUM 40 MG/0.4 ML DISP.SYRIN SQ SCH (16:25)
[2019-10-25] MEDS: Z GUARD REMEDY 2 OZ OINT TP SCH (16:28)
[2019-10-25] MEDS ORDERED: K PHOS NEUTRAL 250 MG TABLET PO ONE (16:30)
[2019-10-25] MEDS: ESCITALOPRAM OXALATE (10 MG) 10 MG TABLET PO SCH (16:30)
[2019-10-25] MEDS: MELOXICAM 7.5 MG TABLET PO SCH (16:32)
--- NOTE | 2019-10-25 19:49 | NUR ---
MS RN NOTES RECEIVED PATIENT AWAKE IN BED WITH NO DISTRESS NOTED. CALL LIGHT WITHIN REACH. CURRENTLY RECEIVING BREATHING TX AND TOLERATING WELL. NO C/O PAIN OR DISCOMFORT. PERIPHERAL LINE INTACT AND PATENT. ENCOURAGED USE OF CALL LIGHT FOR ASSISTANCE AND VERBALIZED GOOD UNDERSTANDING. ROOM FREE OF CLUTTER AND BELONGINGS KEPT NEAR BEDSIDE. WILL CONTINUE TO MONITOR
[2019-10-25 20:00] VITALS: BP 148/91
[2019-10-25] MEDS: MIRTAZAPINE 15 MG TABLET PO SCH (21:26)
[2019-10-25] MEDS ORDERED: TRAZODONE 50 MG TABLET PO SCH (22:00)
--- NOTE | 2019-10-26 | NUR ---
PVR 352ML, REFUSES STRAIGHT CATH DESPITE EXPLANATIONS OF RISKS/BENEFITS. PER PATIENT WANTS TO TRY TO CONTINUE TO URINATE BY SELF AND IF PVR >300ML DURING 0600 CHECK, SHE WILL ALLOW FOR STRAIGHT CATH. WILL CONTINUE TO MONITOR Addendum: 10/26/19 at 0522 by TI BERNABE RN ERROR WRONG PATIENT
[2019-10-26] MEDS: ALBUTEROL HALF STRENGTH 1.25 MG/3 ML VIAL.NEB NEB SCH ×4 (00:42→19:30)
[2019-10-26] MEDS: CEFTRIAXONE 1 G in IV D5W 50 ML IV SCH (04:19)
--- NOTE | 2019-10-26 06:16 | NUR ---
MS RN NOTES PATIENT AWAKE IN BED WITH NO DISTRESS NOTED. CALL LIGHT WITHIN REACH. ALL DUE MEDS GIVEN ORDERED AND TOLERATED WELL. PERIPHERAL LINE INTACT AND PATENT. ROOM FREE OF CLUTTER AND BELONGINGS KEPT NEAR BEDSIDE. BED IN LOW LOCK SETTING WITH BED ALARM ON AND FUNCTIONING PROPERLY. WILL ENDORSE TO ONCOMING SHIFT
[2019-10-26 06:30] LABS: BASOPHILS % (AUTO) 0.1 % (0.0-2.0); HEMATOCRIT 30 % (39-51); HEMOGLOBIN 9.5 g/dL (13.5-17.5); LYMPHOCYTES # (AUTO) 1.5 /CMM (0.8-4.8); LYMPHOCYTES % (AUTO) 9.7 % (20.0-44.0); MEAN CORPUSCULAR HGB CONC 32 g/dl (31.0-36.0); MEAN CORPUSCULAR VOLUME 91 fL (80-96); MONOCYTES # (AUTO) 0.8 /CMM (0.1-1.30); MONOCYTES % (AUTO) 5.5 % (2.0-12.0); NEUTROPHILS # (AUTO) 12.8 /CMM (1.8-8.9); NEUTROPHILS % (AUTO) 84.7 % (43.0-81.0); PLATELET COUNT (AUTO) 270 /CMM (150-450); RED BLOOD CELL COUNT(AUTO) 3.29 MIL/uL (4.5-6.0); WHITE BLOOD COUNT (AUTO) 15.1 K/uL (4.3-11.0)
[2019-10-26 07:02] LABS: LYMPHOCYTES % (MANUAL) 10 % (16-48); MONOCYTES % (MANUAL) 6 % (0-11.0); MYELOCYTES % 1 % (0-0); NEUTROPHILS % (MANUAL) 83 (42-76)
[2019-10-26 07:26] LABS: CALCIUM, SERUM 8.4 mg/dL (8.5-10.1); CREATININE 0.9 mg/dL (0.6-1.3); MAGNESIUM 1.9 mg/dL (1.8-2.4); PHOSPHORUS 3.2 mg/dL (2.5-4.9); POTASSIUM 3.9 mmol/L (3.5-5.1)
[2019-10-26 08:00] VITALS: BP 160/92
[2019-10-26] MEDS: IPRATROPIUM NEB FS 0.5 MG/2.5 ML AMPUL.NEB NEB SCH ×3 (08:01→19:30)
[2019-10-26] MEDS: ACETYLCYSTEINE 10% SOLN 400 MG/4 ML VIAL NEB SCH ×2 (08:01→14:49)
[2019-10-26] MEDS: methylPREDNISolone SOD SUCC 40 MG/ML VIAL IV SCH (08:43)
[2019-10-26] MEDS: ESCITALOPRAM OXALATE (10 MG) 10 MG TABLET PO SCH (08:43)
[2019-10-26] MEDS: MONTELUKAST SODIUM (10MG) 10 MG TABLET PO SCH (08:43)
[2019-10-26] MEDS: PANTOPRAZOLE 40 MG TABLET.DR PO SCH (08:43)
[2019-10-26] MEDS: MEMANTINE HCL 5 MG TABLET PO SCH ×2 (08:43→17:58)
[2019-10-26] MEDS: GABAPENTIN 300 MG CAPSULE PO SCH (08:43)
[2019-10-26] MEDS: MELOXICAM 7.5 MG TABLET PO SCH (08:46)
[2019-10-26] MEDS: ENOXAPARIN SODIUM 40 MG/0.4 ML DISP.SYRIN SQ SCH (08:53)
[2019-10-26] MEDS: Z GUARD REMEDY 2 OZ OINT TP SCH (09:05)
[2019-10-26 16:00] VITALS: BP 130/70
--- NOTE | 2019-10-26 19:17 | NUR ---
Patient cleared for D/c to home with caregiver. Exit care done. Patient awaiting for grandson to be picked up.
--- NOTE | 2019-10-26 19:20 | NUR ---
MS/RN OPENING NOTES: RECEIVED PATIENT ASLEEP IN BED WITH NO DISTRESS NOTED. CALL LIGHT WITHIN REACH. NO C/O PAIN OR DISCOMFORT. AWAITING TO BE PICKED UP BY FAMILY TO BE D/C TONIGHT. ACCORDING TO SON, HE IS ON THE WAY. WILL CONTINUE TO MONITOR PT. ACCORDINGLY.
--- NOTE | 2019-10-26 20:35 | NUR ---
MS/DIRECTOR DERMATOLOGY NOTES: PATIENT IN STABLE CONDITION. WITH NO DISTRESS NOTED. GRAND SON AT BED SIDE. NO C/O PAIN OR DISCOMFORT. AWAITING TO BE PICKED UP BY FAMILY TO BE D/C TONIGHT.IV LINE REMOVED. EDUCATED ABOUT DISCHARGE INFORMATION. PATIENT LEFT THE UNIT IN STABLE CONDITION VIA WHEELCHAIR, WITH 2L OF OXYGEN VIA NC.
== END 2019-10-26 20:25 | disposition home or self-care (01) | DRG 190 ==
LOC: ER 21:32 → TELE 10-20 02:42 → MED 10-20 11:26
PROVIDERS: ADMIT Legal Medicine; ATTEND Registered Nurse
DX: J44.1 Chronic obstructive pulmonary disease with (acute) exacerbation (principal); J96.01 Acute respiratory failure with hypoxia; J18.0 Bronchopneumonia, unspecified organism; I11.0 Hypertensive heart disease with heart failure; I50.9 Heart failure, unspecified; Z99.81 Dependence on supplemental oxygen; F03.90 Unspecified dementia, unspecified severity, without behavioral disturbance, psychotic disturbance, mood disturbance, and anxiety; J44.9 Chronic obstructive pulmonary disease, unspecified; F41.9 Anxiety disorder, unspecified; Z87.891 Personal history of nicotine dependence; Z87.01 Personal history of pneumonia (recurrent); Z79.51 Long term (current) use of inhaled steroids; J44.0 Chronic obstructive pulmonary disease with (acute) lower respiratory infection; D64.9 Anemia, unspecified; T38.0X5A Adverse effect of glucocorticoids and synthetic analogues, initial encounter; Y92.9 Unspecified place or not applicable
CPT/HCPCS: 36415; 36600; 71045-TC; 80048-TC; 80076-TC; 81000-TC; 82962-TC; 83735-TC; 83880; 84100-TC; 84484-TC; 85025-TC; 85378-TC; 86480; 87040-TC; 87081-TC; 87086-TC; 94799-TC; 97116-TC; 97530-TC; G0378; J0696; J1650; J1956; J2920; J3490; J7030; J7050; J7060; Q9967

== ENCOUNTER 2019-10-28 13:54 | Inpatient (IN) | payer OTHER, MEDICARE ==
[~2019-10-28] VITALS: Ht 167.6 cm; Wt 62.1 kg
[~2019-10-28 13:54] MED LIST changes: -ALBU18HF2 IH; +ALBU18HF2 INH; +AZIT250T13 PO; -CHOL100040 PO; -CYAN10006 IJ; +METH4TAB3 PO; -PRED20TA PO; -UMEC1BLS IH
[2019-10-28] MEDS ORDERED: ALBU2TAB4 PO (15:55)
[2019-10-28] MEDS ORDERED: LEVOFLOXACIN 500 MG /D5W 100ML 500 MG in PREMIX 1 EA IV SCH (16:00)
[2019-10-28] MEDS ORDERED: ONDANSETRON HCL/PF 4 MG/2 ML VIAL IV PRN (16:00)
[2019-10-28] MEDS ORDERED: ACETAMINOPHEN 325 MG TABLET PO PRN (16:00)
[2019-10-28] MEDS ORDERED: LORAZEPAM INJ 2 MG/ML VIAL IV PRN (16:00)
[2019-10-28] MEDS ORDERED: RANI150T8 PO (16:06)
[2019-10-28] MEDS ORDERED: OMEP1CAP PO (16:06)
[2019-10-28] MEDS ORDERED: HYDR-3980 PO (16:06)
[2019-10-28] MEDS ORDERED: CYAN10006 IM (16:06)
[2019-10-28] MEDS ORDERED: ERGO500040 PO (16:06)
[2019-10-28] MEDS ORDERED: IPRATROPIUM NEB FS 0.5 MG/2.5 ML AMPUL.NEB IH PRN (16:30)
--- NOTE | 2019-10-28 16:30 | NUR ---
WEEDERFILTERER NOTES PT RECEIVED DIRECT ADMIT FROM DR. VARGAS'S OFFICE WITH CAREGIVER, VIA WHEELCHAIR AROUND 1530. PT AWAKE, A/O X2-3. PT BELARUSIAN SPEAKING, FAMILY PRESENT AT BEDSIDE. PT ON SUPPLEMENTARY OXYGEN AT 3LPM, WITH NO ACUTE RESPIRATORY DISTRESS NOTED. PT DENIES ANY PAIN OR DISCOMFORT AT THIS TIME. ON TELEMONITORING ST HR 120S WITH PACS, PVCS AND OCCASIONAL BIGEMINY, MD/DR VARGAS AWARE; PT DENIES ANY CHEST PAIN. IVF D5NS AT 75ML/HR TO LEFT WRIST G22, INTACT AND OPERATIONAL. SKIN ASSESSED, INTACT ANG GENERALIZED BRUISING TO BUE, PICTURES TAKEN AND FILED IN THE CHART. ORDERS PLACED AND CARRIED OUT. PT KEPT COMFORTABLE. CALL LIGHT KEPT WITHIN REACH. PT'S BED IN LOWEST, LOCKED POSITION WITH SR X3. WILL CONTINUE TO MONITOR.
[2019-10-28 17:00] LABS: BASOPHILS % (AUTO) 0.1 % (0.0-2.0); EOSINOPHILS % (AUTO) 0.4 % (0.0-6.0); HEMATOCRIT 32 % (39-51); HEMOGLOBIN 9.9 g/dL (13.5-17.5); LYMPHOCYTES # (AUTO) 1.1 /CMM (0.8-4.8); LYMPHOCYTES % (AUTO) 6.5 % (20.0-44.0); MEAN CORPUSCULAR HGB CONC 31 g/dl (31.0-36.0); MEAN CORPUSCULAR VOLUME 91 fL (80-96); MONOCYTES # (AUTO) 1.1 /CMM (0.1-1.30); MONOCYTES % (AUTO) 6.4 % (2.0-12.0); NEUTROPHILS # (AUTO) 14.4 /CMM (1.8-8.9); NEUTROPHILS % (AUTO) 86.6 % (43.0-81.0); PLATELET COUNT (AUTO) 222 /CMM (150-450); RED BLOOD CELL COUNT(AUTO) 3.48 MIL/uL (4.5-6.0); WHITE BLOOD COUNT (AUTO) 16.6 K/uL (4.3-11.0)
[2019-10-28] MEDS ORDERED: LEVOFLOXACIN 750 MG /D5W 150ML 750 MG in PREMIX 1 EA IV SCH (17:00)
[2019-10-28 17:13] LABS: CALCIUM, SERUM 8.1 mg/dL (8.5-10.1); CARBON DIOXIDE 32 mmol/L (21-32); CHLORIDE 103 mmol/L (98-107); CREATININE 1.3 mg/dL (0.6-1.3); GLUCOSE 269 mg/dL (74-106); POTASSIUM 3.3 mmol/L (3.5-5.1); SODIUM SERUM 143 mmol/L (136-145); UREA NITROGEN, BLOOD 37 mg/dL (7-18)
[2019-10-28] MEDS: IV D5/ 0.9% NACL 1,000 ML IV PRN (17:20)
[2019-10-28] MEDS: methylPREDNISolone SOD SUCC 125 MG/2ML VIAL IV SCH (17:21)
[2019-10-28 17:28] LABS: ALANINE AMINOTRANSFERASE 29 U/L (12-78); ALBUMIN 2.1 g/dL (3.4-5.0); ALKALINE PHOSPHATASE 67 U/L (46-116); ASPARTATE AMINOTRANSFERASE 19 U/L (15-37); BILIRUBIN,TOTAL 0.2 mg/dL (0.2-1.0); TOTAL PROTEIN, SERUM 5.8 g/dL (6.4-8.2)
[2019-10-28] MEDS ORDERED: POTASSIUM CHLORIDE 20 MEQ TAB.PRT.SR PO ONE (18:00)
--- NOTE | 2019-10-28 18:05 | NUR ---
TELESERVICES REPRESENTATIVE NOTES INFORMED DR VARGAS REGARDING LAB RESULTS. LACTIC ACID 3.7, PT ON D5NS INCREASED TO 100ML/HR. POTASSIUM OF 3.3, ORDER PLACED FOR REPLACEMENT WELL. PT MADE ARE AND ORDER CARRIED OUT.
--- NOTE | 2019-10-28 18:58 | NUR ---
AUDIT LEAD CLOSING NOTES PT REMAINS IN BED, AWAKE, A/O X2-3. PT LATVIAN SPEAKING, FAMILY PRESENT AT BEDSIDE. PT O SUPPLEMENTARY OXYGEN AT 3LPM, WITH NO ACUTE RESPIRATORY DISTRESS NOTED. PT DENIES ANY PAIN OR DISCOMFORT AT THIS TIME. ON TELEMONITORING ST HR 108 WITH PACS, PVCS AND OCCASIONAL MD MELANIE/DR VARGAS AWARE; PT DENIES ANY CHEST PAIN. IVF D5NS AT 100ML/HR TO LEFT WRIST G22, INTACT AND OPERATIONAL. ALL NEEDS ATTENDED. CALL LIGHT KEPT WITHIN REACH. PT'S BED IN LOWEST, LOCKED POSITION WITH SR X3. WILL ENDORSE TO MATERIAL REPROCESSING ASSOCIATE NURSE FOR KARIN.
--- NOTE | 2019-10-28 19:25 | NUR ---
CASINO INVESTIGATOR OPENING NOTES PATIENT RECEIVED RESTING IN BED, WELL A/O X 2-3 MARSHALLESE SPEAKING. PATIENT ON 3L OF O2 VIA NC WITH BREATHING EVEN EVEN AND UNLABORED, NO SOB NOTED. NO SIGNS OF ACUTE DISTRESS. NO COMPLAINTS OF PAIN OR DISCOMFORT, NO FACIAL GRIMACING NOTED. TELE MONITOR READING SR 92 WITH PVC'S- MD AWARE. IV ON L WRIST #22 RUNNING D5 NS @ 100 ML/ HR. SAFETY PRECAUTIONS IN PLACE WITH BED IN LOWEST POSITION, CALL LIGHT WITHIN REACH, SIDE RAILS UP X2, AND BREAKS ON. WILL CONTINUE TO MONITOR.
[2019-10-28] MEDS: ALBUTEROL FS 2.5 MG/0.5 ML VIAL.NEB NEB SCH (19:30)
[2019-10-28] MEDS: IPRATROPIUM NEB FS 0.5 MG/2.5 ML AMPUL.NEB IH SCH (19:30)
--- NOTE | 2019-10-28 19:30 | NUR ---
TX NOT GIVEN. RN NOTIFIED. NO SOB NOTED
[2019-10-28 20:00] VITALS: BP 112/63
[2019-10-28 20:09] LABS: BILIRUBIN,DIRECT 0.1 mg/dL (0.0-0.2)
[2019-10-28] MEDS: PIPERACILLIN /TAZOBACTAM 3.375 G in IV D5W 50 ML IV SCH (20:26)
[2019-10-28] MEDS: ENOXAPARIN SODIUM 30 MG/0.3 ML DISP.SYRIN SQ SCH (20:26)
--- NOTE | 2019-10-28 20:30 | NUR ---
LATHE SET UP OPERATOR NOTES JV FROM LAB CALLED TO REPORT LACTIC ACID OF 2.1. NOT CONTACTED BECAUSE IT IS TRENDING DOWN FROM PREVIOUS VALUE OF 3.3. WILL CONTINUE TO MONITOR.
[2019-10-29] VITALS: BP 104/73
[2019-10-29] MEDS: methylPREDNISolone SOD SUCC 125 MG/2ML VIAL IV SCH ×3 (00:20→17:16)
[2019-10-29] MEDS: PIPERACILLIN /TAZOBACTAM 3.375 G in IV D5W 50 ML IV SCH ×4 (02:01→21:38)
[2019-10-29 04:00] VITALS: BP 107/64
[2019-10-29 06:13] LABS: BASOPHILS % (AUTO) 0.1 % (0.0-2.0); HEMATOCRIT 30 % (39-51); HEMOGLOBIN 9.6 g/dL (13.5-17.5); LYMPHOCYTES # (AUTO) 0.3 /CMM (0.8-4.8); LYMPHOCYTES % (AUTO) 2.5 % (20.0-44.0); MEAN CORPUSCULAR HGB CONC 32 g/dl (31.0-36.0); MEAN CORPUSCULAR VOLUME 90 fL (80-96); MONOCYTES # (AUTO) 0.4 /CMM (0.1-1.30); MONOCYTES % (AUTO) 3.2 % (2.0-12.0); NEUTROPHILS # (AUTO) 12.5 /CMM (1.8-8.9); NEUTROPHILS % (AUTO) 94.2 % (43.0-81.0); PLATELET COUNT (AUTO) 189 /CMM (150-450); RED BLOOD CELL COUNT(AUTO) 3.35 MIL/uL (4.5-6.0); WHITE BLOOD COUNT (AUTO) 13.2 K/uL (4.3-11.0)
--- NOTE | 2019-10-29 06:24 | NUR ---
DISASTER RECOVERY MANAGER CLOSING NOTES PATIENT IN BED, AWAKE, A/O X2, URDU SPEAKING. PT ON SUPPLEMENTARY OXYGEN AT 2.5LPM, WITH NO ACUTE RESPIRATORY DISTRESS NOTED. PT DENIES ANY PAIN OR DISCOMFORT AT THIS TIME. ON TELEMONITORING ST HR 108 WITH PJCS, PVCS AND OCCASIONAL BUNDLE BRANCH BLOCK; PT DENIES ANY CHEST PAIN. IVF D5NS AT 100ML/HR TO LEFT WRIST G22, INTACT AND OPERATIONAL. ALL NEEDS ATTENDED. PATIENT KEPT CLEAN AND DRY THROUGHOUT THE NIGHT. CALL LIGHT KEPT WITHIN REACH. PT'S BED IN LOWEST, LOCKED POSITION WITH SR X2. WILL ENDORSE TO ONCOMING SHIFT ABOUT KARIN.
[2019-10-29 06:29] LABS: CALCIUM, SERUM 8.3 mg/dL (8.5-10.1); CREATININE 1.2 mg/dL (0.6-1.3)
[2019-10-29] MEDS: IV D5/ 0.9% NACL 1,000 ML IV PRN ×2 (06:44→21:45)
--- NOTE | 2019-10-29 07:30 | NUR ---
AIRCRAFT MAINTENANCE MANAGER NOTES PT IN BED, ASLEEP, EASILY AROUSABLE, ALERT AND VERBALLY RESPONSIVE, NO COMPLAINT OF PAIN, NO SHORTNESS OF BREATH NOTED, CALL LIGHT WITHIN REACH, IV FLUIDS INFUSING WELL, KEPT WARM AND COMFORTABLE IN BED.
[2019-10-29 08:00] VITALS: BP_SYST 128; BP_SYST 160; BP_DIAS 101; BP_DIAS 79
[2019-10-29] MEDS: PANTOPRAZOLE 40 MG TABLET.DR PO SCH (08:08)
[2019-10-29] MEDS: IPRATROPIUM NEB FS 0.5 MG/2.5 ML AMPUL.NEB IH SCH ×3 (08:38→19:05)
[2019-10-29] MEDS: ALBUTEROL FS 2.5 MG/0.5 ML VIAL.NEB NEB SCH ×3 (08:38→19:05)
--- NOTE | 2019-10-29 11:58 | NUR ---
RN MS NOTES PT IN BED, AWAKE, ALERT AND ORIENTED, NO SOB, CALL LIGHT WITHIN REACH, ASSISTED WITH REPOSITIONING, IV FLUIDS INFUSING WELL, KEPT WARM AND COMFORTABLE IN BED.
[2019-10-29] MEDS ORDERED: ALBUTEROL SULFATE INH 18 GM HFA.AER.AD IH PRN (12:30)
[2019-10-29] MEDS ORDERED: QUETIAPINE FUMARATE 25 MG TABLET PO PRN (12:30)
[2019-10-29] MEDS ORDERED: HYDROCODONE/APAP 10/325MG 1 EA TABLET PO PRN (12:30)
[2019-10-29 16:00] LABS: MAGNESIUM 2.2 mg/dL (1.8-2.4)
[2019-10-29] MEDS: ACETYLCYSTEINE 10% SOLN 400 MG/4 ML VIAL NEB SCH ×2 (16:00→23:22)
[2019-10-29 16:44] LABS: ABG BASE EXCESS 4.4 mmol/L; ABG OXYGEN SATURATION 96.4 % (92.0-98.5); ABG PCO2 44.1 mmHg (35.0-45.0); ABG PH 7.437 (7.350-7.450); AaDO2 93.8 mmHg; COHb 0.3 % (0.5-1.5); MetHb 0.4 % (0.0-1.5); O2Hb 95.7 % (94.0-97.0); SITE, ABG Right Brachial; VENT MODE, BG nasal cannula
[2019-10-29] MEDS: MONTELUKAST SODIUM (10MG) 10 MG TABLET PO SCH (17:16)
[2019-10-29] MEDS: ALBUTEROL SULFATE 2 MG TABLET PO SCH (17:16)
[2019-10-29] MEDS: MEMANTINE HCL 5 MG TABLET PO SCH (17:16)
--- NOTE | 2019-10-29 18:02 | NUR ---
RN MS NOTES PT IN BED, AWAKE, ALERT AND VERBALLY RESPONSIVE, DENIES PAIN, NOT IN DISTRESS, IV FLUIDS INFUSING WELL, BREATHING TREATMENTS GIVEN ORDERED, TOLERATES CURRENT DIET, ALL NEEDS ATTENDED.
--- NOTE | 2019-10-29 19:16 | NUR ---
RN MS NOTES CLARIFIED MEDS WITH DR. VARGAS, PER PT IS TAKING REMERON AT BEDTIME, D/C TRAZODONE, PHARMACY INFORMED.
[2019-10-29] MEDS: MIRTAZAPINE 15 MG TABLET PO SCH (21:38)
[2019-10-29] MEDS: MELOXICAM 7.5 MG TABLET PO SCH (21:38)
[2019-10-29] MEDS: ENOXAPARIN SODIUM 30 MG/0.3 ML DISP.SYRIN SQ SCH (21:40)
[2019-10-29] MEDS ORDERED: TRAZODONE 50 MG TABLET PO SCH (22:00)
[2019-10-30] MEDS: methylPREDNISolone SOD SUCC 125 MG/2ML VIAL IV SCH ×3 (02:03→17:30)
[2019-10-30] MEDS: PIPERACILLIN /TAZOBACTAM 3.375 G in IV D5W 50 ML IV SCH ×4 (03:02→21:37)
--- NOTE | 2019-10-30 06:22 | NUR ---
RN NOTES SLEEPING BUT AROUSABLE,MORNING CARE RENDERED, DENIES PAIN, NO SOB, CALL LIGHT WITHIN REACH, [id number], PT. NEEDS ATTENDED
--- NOTE | 2019-10-30 07:00 | NUR ---
MS/RN Opening note Received patient in bed, AO x 2-3, able to responds all stimuli. Patient on oxygen at 3LPM, no s/s of respiratory distress observed, skin is warm to touch, kept clean/dry, intact IV. No adverse reaction from ATB IV, keep lower position of the bed with elevated HOB. Sebastien light within reach, will continue to monitor.
[2019-10-30] MEDS: PANTOPRAZOLE 40 MG TABLET.DR PO SCH ×2 (07:30→08:11)
[2019-10-30] MEDS: IPRATROPIUM NEB FS 0.5 MG/2.5 ML AMPUL.NEB IH SCH ×3 (07:51→19:49)
[2019-10-30] MEDS: ACETYLCYSTEINE 10% SOLN 400 MG/4 ML VIAL NEB SCH ×3 (07:51→23:53)
[2019-10-30] MEDS: ALBUTEROL FS 2.5 MG/0.5 ML VIAL.NEB NEB SCH ×3 (07:51→19:49)
[2019-10-30 08:00] VITALS: BP 135/80
[2019-10-30] MEDS: ESCITALOPRAM OXALATE (10 MG) 10 MG TABLET PO SCH (08:18)
[2019-10-30] MEDS: GABAPENTIN 300 MG CAPSULE PO SCH (08:18)
[2019-10-30] MEDS: MEMANTINE HCL 5 MG TABLET PO SCH ×2 (08:19→17:30)
[2019-10-30] MEDS: MELOXICAM 7.5 MG TABLET PO SCH ×2 (08:21→21:37)
[2019-10-30] MEDS: ALBUTEROL SULFATE 2 MG TABLET PO SCH ×2 (08:23→17:30)
[2019-10-30] MEDS: IV D5/ 0.9% NACL 1,000 ML IV PRN (08:35)
[2019-10-30 14:30] LABS: HEMATOCRIT 26 % (39-51); LYMPHOCYTES # (AUTO) 0.3 /CMM (0.8-4.8); MEAN CORPUSCULAR HGB CONC 31 g/dl (31.0-36.0); MEAN CORPUSCULAR VOLUME 90 fL (80-96); MONOCYTES # (AUTO) 0.4 /CMM (0.1-1.30); MONOCYTES % (AUTO) 2.7 % (2.0-12.0); NEUTROPHILS # (AUTO) 14.5 /CMM (1.8-8.9); NEUTROPHILS % (AUTO) 95.3 % (43.0-81.0); PLATELET COUNT (AUTO) 186 /CMM (150-450); RED BLOOD CELL COUNT(AUTO) 2.85 MIL/uL (4.5-6.0); WHITE BLOOD COUNT (AUTO) 15.2 K/uL (4.3-11.0)
[2019-10-30 14:50] LABS: CALCIUM, SERUM 7.9 mg/dL (8.5-10.1); CREATININE 1.3 mg/dL (0.6-1.3); MAGNESIUM 1.9 mg/dL (1.8-2.4); POTASSIUM 3.9 mmol/L (3.5-5.1)
[2019-10-30 16:00] VITALS: BP 131/64
[2019-10-30] MEDS: ALBUTEROL FS 2.5 MG/0.5 ML VIAL.NEB NEB PRN (17:11)
[2019-10-30] MEDS: MONTELUKAST SODIUM (10MG) 10 MG TABLET PO SCH (17:30)
--- NOTE | 2019-10-30 18:50 | NUR ---
MS/RN Closing note Patient resting in bed comfortably, no appears pain or discomfort. Skin is warm to touch, clean/dry, intact IV site. Respiratory even and unlabored. patient is on IVF, no s/s of fluid over load observed, stable v/s. Kept lower position of the bed with elevated HOB. Call light within reach, will endorse to retail shift manager.
--- NOTE | 2019-10-30 18:50 | NUR ---
MS/RN Closing note Patient resting in bed comfortably, no appears pain or discomfort. Skin is warm to touch, clean/dry, intact picc line/IV site. Respiratory even and unlabored, provided oral care. patient is on TPN, no s/s of fluid over load observed, stable blood sugar level. Kept lower position of the bed with elevated HOB. Call light within reach, will endorse to container filler. Addendum: 10/30/19 at 1938 by AVIS SPARKS RN Wrong pt
--- NOTE | 2019-10-30 19:40 | NUR ---
MS RN NOTE: PATIENT RESTING IN BED, NO ACUTE DISTRESS NOTED. BREATHING EVEN AND UNLABORED, NO SOB NOTED. IV TO RFA IN PLACE INFUSING D5NS AT 100ML/HR. BED LOCKED AND IN LOWEST POSITION, CALL LIGHT IN REACH. WILL CONTINUE TO MONITOR.
[2019-10-30 20:00] VITALS: BP 127/71
[2019-10-30] MEDS: MIRTAZAPINE 15 MG TABLET PO SCH (21:37)
[2019-10-30] MEDS: ENOXAPARIN SODIUM 30 MG/0.3 ML DISP.SYRIN SQ SCH (21:38)
[2019-10-31] MEDS: methylPREDNISolone SOD SUCC 125 MG/2ML VIAL IV SCH ×3 (01:49→17:23)
--- NOTE | 2019-10-31 03:30 | NUR ---
MS RN NOTE: PATIENT SLEEPING IN BED, NO ACUTE DISTRESS NOTED. BREATHING EVEN AND UNLABORED, NO SOB NOTED. BED LOCKED AND IN LOWEST POSITION, CALL LIGHT IN REACH. WILL CONTINUE TO MONITOR.
[2019-10-31] MEDS: PIPERACILLIN /TAZOBACTAM 3.375 G in IV D5W 50 ML IV SCH ×4 (03:38→21:05)
[2019-10-31] MEDS: IV D5/ 0.9% NACL 1,000 ML IV PRN (03:38)
--- NOTE | 2019-10-31 06:05 | NUR ---
MS RN NOTE: PATIENT RESTING IN BED, NO ACUTE DISTRESS NOTED. BREATHING EVEN AND UNLABORED, NO SOB NOTED. IV TO RFA IN PLACE INFUSING D5NS AT 100ML/HR. BED LOCKED AND IN LOWEST POSITION, CALL LIGHT IN REACH. WILL ENDORSE TO DAY NURSE TO CONTINUE WITH PLAN OF CARE.
[2019-10-31] MEDS: ALBUTEROL FS 2.5 MG/0.5 ML VIAL.NEB NEB SCH ×3 (07:33→20:05)
[2019-10-31] MEDS: ACETYLCYSTEINE 10% SOLN 400 MG/4 ML VIAL NEB SCH ×3 (07:33→23:28)
[2019-10-31] MEDS: IPRATROPIUM NEB FS 0.5 MG/2.5 ML AMPUL.NEB IH SCH ×3 (07:33→20:05)
[2019-10-31 08:00] VITALS: BP 122/79
[2019-10-31 08:20] VITALS: BP 139/88
[2019-10-31] MEDS: GABAPENTIN 300 MG CAPSULE PO SCH (08:55)
[2019-10-31] MEDS: MEMANTINE HCL 5 MG TABLET PO SCH ×2 (08:55→17:21)
[2019-10-31] MEDS: ESCITALOPRAM OXALATE (10 MG) 10 MG TABLET PO SCH (08:55)
[2019-10-31] MEDS: PANTOPRAZOLE 40 MG TABLET.DR PO SCH (08:55)
[2019-10-31] MEDS: ALBUTEROL SULFATE 2 MG TABLET PO SCH ×2 (09:00→18:06)
[2019-10-31] MEDS: MELOXICAM 7.5 MG TABLET PO SCH ×2 (09:04→21:05)
[2019-10-31 15:59] VITALS: BP 153/94
[2019-10-31] MEDS: MONTELUKAST SODIUM (10MG) 10 MG TABLET PO SCH (17:21)
--- NOTE | 2019-10-31 19:02 | NUR ---
Patient resting in bed comfortably, no pain or distress noted. IV site intact and patent. Respiration even and unlabored. Patient kept clean and dry. Safety precautions in place, call light within reach, will endorse to maintenance technician 2nd shift for KARIN
--- NOTE | 2019-10-31 19:10 | NUR ---
MS RN OPENING NOTES Received patient A/O x2, awake on bed, on O2 inhalation via NC @ 2LPM, no SOB/respiratory distress noted at this time. Patient denies any discomfort at this time. Kept on bed clean, dry and comfortable. Call light within easy reach. On fall and aspiration precautions. Will continue to monitor accordingly.
[2019-10-31 20:00] VITALS: BP 157/88
[2019-10-31 20:18] LABS: BASOPHILS % (AUTO) 0.1 % (0.0-2.0); HEMATOCRIT 27 % (39-51); HEMOGLOBIN 8.6 g/dL (13.5-17.5); LYMPHOCYTES # (AUTO) 0.4 /CMM (0.8-4.8); LYMPHOCYTES % (AUTO) 2.4 % (20.0-44.0); MEAN CORPUSCULAR HGB CONC 32 g/dl (31.0-36.0); MEAN CORPUSCULAR VOLUME 91 fL (80-96); MONOCYTES # (AUTO) 0.8 /CMM (0.1-1.30); MONOCYTES % (AUTO) 5.6 % (2.0-12.0); NEUTROPHILS # (AUTO) 13.6 /CMM (1.8-8.9); NEUTROPHILS % (AUTO) 91.9 % (43.0-81.0); PLATELET COUNT (AUTO) 201 /CMM (150-450); RED BLOOD CELL COUNT(AUTO) 2.99 MIL/uL (4.5-6.0); WHITE BLOOD COUNT (AUTO) 14.8 K/uL (4.3-11.0)
[2019-10-31 20:39] LABS: IRON, SERUM 69 ug/dl (50-175); TOTAL IRON BINDING CAPACITY 177 ug/dl (250-450)
[2019-10-31 20:40] LABS: BILIRUBIN,TOTAL 0.2 mg/dL (0.2-1.0); CREATININE 1.2 mg/dL (0.6-1.3); MAGNESIUM 1.8 mg/dL (1.8-2.4); PHOSPHORUS 2.3 mg/dL (2.5-4.9); POTASSIUM 3.9 mmol/L (3.5-5.1); TOTAL PROTEIN, SERUM 5.7 g/dL (6.4-8.2)
[2019-10-31 20:50] LABS: FERRITIN 951 ng/mL (8-388)
[2019-10-31] MEDS: MIRTAZAPINE 15 MG TABLET PO SCH (21:05)
[2019-10-31] MEDS: ENOXAPARIN SODIUM 30 MG/0.3 ML DISP.SYRIN SQ SCH (21:06)
[2019-11-01] MEDS: methylPREDNISolone SOD SUCC 125 MG/2ML VIAL IV SCH ×2 (00:22→08:41)
[2019-11-01] MEDS: PIPERACILLIN /TAZOBACTAM 3.375 G in IV D5W 50 ML IV SCH ×4 (03:07→22:02)
--- NOTE | 2019-11-01 06:13 | NUR ---
MS RN CLOSING NOTES Patient asleep, easily awaken. No new complaints made within the shift. All due meds given as ordered. All nursing needs attended. Kept on bed clean, dry and comfortable. On fall and aspiration precautions. Call light within easy reach. Endorsed.
--- NOTE | 2019-11-01 07:30 | NUR ---
MS/RN Opening note Received patient AOx 2, able to responds all stimuli. patient does no c/o pain or discomfort. Respiratory even and unlabored with oxygen at 2PLM. No s/s of adverse reaction from ATB therapy. Skin is warm to touch, clean/dry, intact IV site. Keep lower position of bed with elevated HOB. Call light within reach, will continue to monitor.
[2019-11-01] MEDS: PANTOPRAZOLE 40 MG TABLET.DR PO SCH (07:34)
[2019-11-01 08:00] VITALS: BP 153/94
[2019-11-01] MEDS: ESCITALOPRAM OXALATE (10 MG) 10 MG TABLET PO SCH (08:41)
[2019-11-01] MEDS: MEMANTINE HCL 5 MG TABLET PO SCH ×2 (08:42→17:06)
[2019-11-01] MEDS: GABAPENTIN 300 MG CAPSULE PO SCH (08:42)
[2019-11-01] MEDS: ALBUTEROL SULFATE 2 MG TABLET PO SCH ×2 (08:42→17:06)
[2019-11-01] MEDS: MELOXICAM 7.5 MG TABLET PO SCH ×2 (08:45→22:00)
[2019-11-01] MEDS: ALBUTEROL FS 2.5 MG/0.5 ML VIAL.NEB NEB SCH ×3 (08:49→19:09)
[2019-11-01] MEDS: IPRATROPIUM NEB FS 0.5 MG/2.5 ML AMPUL.NEB IH SCH ×3 (08:49→19:09)
[2019-11-01] MEDS: ACETYLCYSTEINE 10% SOLN 400 MG/4 ML VIAL NEB SCH ×3 (08:50→22:52)
[2019-11-01] MEDS: IV D5/ 0.9% NACL 1,000 ML IV PRN ×2 (10:01→23:57)
[2019-11-01 16:00] VITALS: BP 138/86
[2019-11-01] MEDS: MONTELUKAST SODIUM (10MG) 10 MG TABLET PO SCH (17:06)
--- NOTE | 2019-11-01 18:45 | NUR ---
MS/RN Closing note patient in bed comfortably, denies pain or any discomfort. Noticed PVC from cardiac strip, informed Dr. Saleh. Skin is warm to touch, clean/dry, intact new IV sire. Respiratory even and unlabored with oxygen at 2PLM. Keep lower position of the bed with elevated HOB, Call light within reach, will endorse incising machine operator.
--- NOTE | 2019-11-01 19:30 | NUR ---
MS RN OPENING NOTE RECEIVED PATIENT IN BED. A/OX 2- 3, PATIENT IS TURKISH SPEAKING, ABLE TO MAKE BASIC NEEDS KNOWN. ON OXYGEN 2L/MIN VIA NASAL CANNULA. RESPIRATIONS ARE EVEN AND UNLABORED. NO S/S SOB NOTED. DENIES PAIN AT THIS TIME. EXTERNAL TELE MONITOR READS SR WITH BBB WITH PVCS HR 95. IN NO APPARENT DISTRESS. IV ACCESS IN RFA#22 RUNNING [email or web address]@100ML/HR. BED IS LOW AND LOCKED, HOB ELEVATED IN HIGH FOWLERS, SIDE RAILS UP X2, BED ALARM ON. CALL LIGHT WITHIN REACH. WILL CONTINUE TO MONITOR.
[2019-11-01 19:41] VITALS: BP 149/83
[2019-11-01 20:00] VITALS: BP 149/83
[2019-11-01] MEDS ORDERED: methylPREDNISolone SOD SUCC 125 MG/2ML VIAL IV SCH (21:00)
[2019-11-01] MEDS: MIRTAZAPINE 15 MG TABLET PO SCH (21:59)
[2019-11-01] MEDS: ENOXAPARIN SODIUM 30 MG/0.3 ML DISP.SYRIN SQ SCH (22:02)
[2019-11-02] VITALS (8 sets, daily range): BP systolic 128–160; BP diastolic 69–87
[2019-11-02] MEDS: PIPERACILLIN /TAZOBACTAM 3.375 G in IV D5W 50 ML IV SCH ×4 (02:03→21:08)
--- NOTE | 2019-11-02 07:09 | NUR ---
MS RN CLOSING NOTE PATIENT IN BED. A/OX 2- 3, PATIENT IS SERBIAN SPEAKING, ABLE TO MAKE BASIC NEEDS KNOWN. ON OXYGEN 2L/MIN VIA NASAL CANNULA. RESPIRATIONS ARE EVEN AND UNLABORED. NO SOB NOTED. NO C/O PAIN THROUGHOUT SHIFT. EXTERNAL TELE MONITOR READS SR WITH BBB WITH PVCS HR 95. NO DISTRESS NOTED. IV ACCESS MAINTAINED IN RFA#22 RUNNING [email or web address]@100ML/HR. BED IS LOW AND LOCKED, HOB ELEVATED IN HIGH FOWLERS, SIDE RAILS UP X2, BED ALARM ON. CALL LIGHT WITHIN REACH. WILL ENDORSE TO NEXT SHIFT
--- NOTE | 2019-11-02 08:00 | NUR ---
rn notes RECEIVED PATIENT IN THE BED
--- NOTE | 2019-11-02 08:00 | NUR ---
RN NOTES RECEIVED PATIENT IN THE BED A/O X2/3 BHUTANESE SPEAKER ON TELE SR 88 TO 90 PVC, PATIENT ON O2-2L NC, NO ACUTE RESPIRATORY DISTRESS, V/S TAKEN, ADMINISTERED SCHEDULED MEDICATION, PATIENT REFUSED PAIN, INFUSING D5NS AT 100 ML/HR ON RIGHT FA INTACT. PATIENT TURN AND REPOSTION SELF IN THE BED. CALL LIGHT WITHIN TO REACH, SAFETY PRECAUTION MAINTAINED ALL THE TIME.
[2019-11-02] MEDS: ALBUTEROL FS 2.5 MG/0.5 ML VIAL.NEB NEB SCH ×3 (08:20→19:54)
[2019-11-02] MEDS: IPRATROPIUM NEB FS 0.5 MG/2.5 ML AMPUL.NEB IH SCH ×3 (08:20→19:53)
[2019-11-02] MEDS: ACETYLCYSTEINE 10% SOLN 400 MG/4 ML VIAL NEB SCH ×3 (08:20→23:32)
[2019-11-02] MEDS: GABAPENTIN 300 MG CAPSULE PO SCH (10:35)
[2019-11-02] MEDS: MEMANTINE HCL 5 MG TABLET PO SCH ×2 (10:35→18:03)
[2019-11-02] MEDS: PANTOPRAZOLE 40 MG TABLET.DR PO SCH (10:36)
[2019-11-02] MEDS: ESCITALOPRAM OXALATE (10 MG) 10 MG TABLET PO SCH (10:36)
[2019-11-02] MEDS: methylPREDNISolone SOD SUCC 40 MG/ML VIAL IV SCH ×2 (10:36→21:08)
[2019-11-02] MEDS: MELOXICAM 7.5 MG TABLET PO SCH ×2 (10:46→21:08)
[2019-11-02] MEDS: ALBUTEROL SULFATE 2 MG TABLET PO SCH ×2 (10:46→18:07)
[2019-11-02] MEDS: IV D5/ 0.9% NACL 1,000 ML IV PRN (14:16)
--- NOTE | 2019-11-02 15:00 | NUR ---
RN NOTES INFUSING ZOFRAN 100 ML/HR ON RIGHT FA INTACT. NEEDS ATTENDED AND ANTICIPATED. CALL LIGHT WITHIN TO REACH. CONTINUED MONITORING.
--- NOTE | 2019-11-02 18:00 | NUR ---
rn notes patient in the bed, on o2-2lnc, administered scheduled medication, v/s stable, patient using urinal, infusing D5NS at 100 ml/hr on right FA intact, call light within to reach. safety precaution maintained all the time.
[2019-11-02] MEDS: MONTELUKAST SODIUM (10MG) 10 MG TABLET PO SCH (18:02)
[2019-11-02] MEDS ORDERED: MAG HYDROX/AL HYDROX/SIMETH 30 ML UDC PO PRN (19:00)
--- NOTE | 2019-11-02 19:24 | NUR ---
rn notes administered Maalox 30 ml po prn for stomachache.
--- NOTE | 2019-11-02 19:40 | NUR ---
PRINCIPAL LAW CLERK OPENING NOTES RECEIVED PATIENT FROM MORNING SHIFT, ALERT AND ORIENTED X 3 POLISH SPEAKING. AGITATED AND WANTED TO GO TO THE RESTROOM TO HAVE A BOWEL MOVEMENT. ASSISTED BY HEDIS NURSE AMBULATORY WITH WALKER, HAD A LARGE SOFT BROWNISH STOOL. BREATHING REGULAR AND UNLABORED ON OXYGEN AT 3L/MIN VIA NASAL CANNULA. RIGHT FOREARM G20 IV LINE INTACT AND PATENT, INFUSING WELL WITH NO BLEEDING OR S/S OF INFILTRATION OBSERVED. BODY ASSESSMENT DONE, SKIN INTACT AND CLEAN. COMPLAINED OF STOMACH ACHE, MORNING SHIFT RN GAVE MAALOX PRN. CAME BACK TO BED WITH NO SOB/DISTRESS. BED LOW AND LOCKED ON HIGH FOWLERS POSITION, CALL LIGHT IN REACH. WILL CONTINUE TO MONITOR.
--- NOTE | 2019-11-02 20:30 | NUR ---
NAVIGATING OFFICER NOTES TRANSFERRED TO ROOM 308-2 WITH STABLE CONDITION. AWARE OF TRANSFER, STILL ON OXYGEN AT 3L/MIN AND ATTACHED TO SOLAR HOT WATER INSTALLER WITH NSR WITH BBB AND PVC AT 92bpm. NO COMPLAINTS OF PAIN/DISCOMFORT REPORTED AT THIS TIME. WILL CONTINUE TO MONITOR.
[2019-11-02] MEDS: MIRTAZAPINE 15 MG TABLET PO SCH (21:08)
[2019-11-02] MEDS: ENOXAPARIN SODIUM 30 MG/0.3 ML DISP.SYRIN SQ SCH (21:24)
[2019-11-02 21:42] LABS: BASOPHILS # (AUTO) 0.1 /CMM (0.0-0.2); BASOPHILS % (AUTO) 0.5 % (0.0-2.0); HEMATOCRIT 28 % (39-51); HEMOGLOBIN 8.9 g/dL (13.5-17.5); LYMPHOCYTES # (AUTO) 0.5 /CMM (0.8-4.8); LYMPHOCYTES % (AUTO) 3.5 % (20.0-44.0); MEAN CORPUSCULAR HGB CONC 32 g/dl (31.0-36.0); MEAN CORPUSCULAR VOLUME 90 fL (80-96); MONOCYTES # (AUTO) 1.2 /CMM (0.1-1.30); MONOCYTES % (AUTO) 8.2 % (2.0-12.0); NEUTROPHILS # (AUTO) 12.8 /CMM (1.8-8.9); NEUTROPHILS % (AUTO) 87.8 % (43.0-81.0); PLATELET COUNT (AUTO) 191 /CMM (150-450); RED BLOOD CELL COUNT(AUTO) 3.11 MIL/uL (4.5-6.0); WHITE BLOOD COUNT (AUTO) 14.6 K/uL (4.3-11.0)
[2019-11-02 21:52] LABS: CALCIUM, SERUM 8.2 mg/dL (8.5-10.1); CARBON DIOXIDE 31 mmol/L (21-32); CHLORIDE 109 mmol/L (98-107); GLUCOSE 130 mg/dL (74-106); POTASSIUM 3.2 mmol/L (3.5-5.1); SODIUM SERUM 148 mmol/L (136-145); UREA NITROGEN, BLOOD 28 mg/dL (7-18)
[2019-11-03 00:01] VITALS: BP 150/88
[2019-11-03] MEDS: PIPERACILLIN /TAZOBACTAM 3.375 G in IV D5W 50 ML IV SCH ×4 (02:55→22:04)
[2019-11-03] MEDS: IV D5/ 0.9% NACL 1,000 ML IV PRN ×2 (03:01→15:38)
--- NOTE | 2019-11-03 06:30 | NUR ---
SPORTS EQUIPMENT SUPERVISOR CLOSING NOTES PATIENT IN BED ALERT AND ORIENTED X 3. VERBALLY RESPONSIVE AND ABLE TO FOLLOW DIRECTIONS. BREATHING REGULAR AND UNLABORED ON OXYGEN AT 3L/MIN VIA NASAL CANNULA. RIGHT FOREARM G20 IV LINE PATENT AND INFUSING WELL. NO COMPLAINTS OF PAIN/DISCOMFORT REPORTED THE WHOLE SHIFT. BED LOW AND LOCKED ON SEMI FOWLERS POSITION, CALL LIGHT IN REACH. WILL ENDORSE TO MORNING SHIFT FOR KARIN.
[2019-11-03] MEDS: ACETYLCYSTEINE 10% SOLN 400 MG/4 ML VIAL NEB SCH ×3 (07:32→23:24)
[2019-11-03] MEDS: IPRATROPIUM NEB FS 0.5 MG/2.5 ML AMPUL.NEB IH SCH ×3 (07:32→19:35)
[2019-11-03] MEDS: ALBUTEROL FS 2.5 MG/0.5 ML VIAL.NEB NEB SCH ×3 (07:32→19:36)
[2019-11-03 08:00] VITALS: BP 158/98
--- NOTE | 2019-11-03 08:00 | NUR ---
RESIDENT CARE TECHNICIAN OPENING NOTES PATIENT IN BED ALERT AND ORIENTED X 3. VERBALLY RESPONSIVE AND ABLE TO FOLLOW DIRECTIONS. BREATHING REGULAR AND UNLABORED ON OXYGEN AT 3L/MIN VIA NASAL CANNULA. O2 SAT 95%.ON TELE SR HR 82. RIGHT FOREARM G20 IV LINE PATENT AND INFUSING WELL. NO COMPLAINTS OF PAIN/DISCOMFORT .BED LOW AND LOCKED ON SEMI FOWLERS POSITION, CALL LIGHT WITHIN REACH.
[2019-11-03] MEDS: GABAPENTIN 300 MG CAPSULE PO SCH (08:51)
[2019-11-03] MEDS: PANTOPRAZOLE 40 MG TABLET.DR PO SCH (08:52)
[2019-11-03] MEDS: MEMANTINE HCL 5 MG TABLET PO SCH ×2 (08:52→17:26)
[2019-11-03] MEDS: methylPREDNISolone SOD SUCC 40 MG/ML VIAL IV SCH ×2 (08:52→22:04)
[2019-11-03] MEDS: ESCITALOPRAM OXALATE (10 MG) 10 MG TABLET PO SCH (08:52)
[2019-11-03] MEDS: ALBUTEROL SULFATE 2 MG TABLET PO SCH ×2 (09:00→17:26)
[2019-11-03] MEDS: MELOXICAM 7.5 MG TABLET PO SCH ×2 (09:01→22:04)
[2019-11-03 09:40] VITALS: BP 155/90
[2019-11-03] MEDS: VALSARTAN 80 MG TABLET PO SCH (10:41)
[2019-11-03 12:00] VITALS: BP 136/85
[2019-11-03 16:00] VITALS: BP 143/48
[2019-11-03] MEDS: MONTELUKAST SODIUM (10MG) 10 MG TABLET PO SCH (17:26)
--- NOTE | 2019-11-03 19:30 | NUR ---
PT RESTING IN BED DENYING ANY PAIN OR DISTRESS.WITH O2 AT 3L/MIN VIA NC.WITH ONGOING IVF OF D5NS AT 100ML/HR INFUSING WELL.CALL LIGHT PLACED WITHIN REACH.
--- NOTE | 2019-11-03 19:53 | NUR ---
TELE/RN OPENING NOTES RECEIVED PATIENT IN BED, AWAKE, ALERT X3, WITH CAREGIVER, ON OXYGEN VIA NC AT 3LITER, HAVING LATE DINNER, ABLE TO TOLERATE PO MEDS. RESPIRATIONS EVEN AND UNLABORED, SKIN WARM TO TOUCH, WITH SOME CHEST PRESSURE BUT REPOSITIONED AND ENCOURAGE BREATHING, ABLE TO FEEL SOME IMPROVEMENT. WILL HAVE BREATHING TX . TELE MONITOR ST AT 100. RECEIVED ENDORSEMENT FROM AM RN FOR KARIN. Addendum: 11/03/19 at 2000 by SIMON THOMAS RN PLS DISREGARD FOR ANOTHER PATIENT
--- NOTE | 2019-11-03 19:56 | NUR ---
TELE/RN NOTES; RFA GAUGE 22 WITH NO S/S OF INFILTRATION, HYDE CATETHER DRAINING URINE YELLOW COLOR. D5 RUNNING AT 100CC/HR/WILL MONITOR. BED LOCKED, CALL LIGHTS WITHIN REACH.
--- NOTE | 2019-11-03 20:00 | NUR ---
TELE/RN OPENING NOTES RECEIVED PATIENT IN BED AWAKE, ALERT X2, RESPIRATIONS EVEN AND UNLABORED, ON TELE MONITOR AT ST 103. SKIN WARM TO TOUCH, BED LOCKED, CALL LIGHTS WITHIN REACH. RECEIVED ENDORSEMENT FROM AM RN FOR KARIN. PATIENT TO MONITOR FOR ANY CHANGES. DISCUSSED IMPORTANCE OF SAFETY AND USE OF CALL LIGHTS. DENIES ANY PAIN. ON D5NS AT 100ML/HR.
[2019-11-03 20:42] VITALS: BP 128/68
[2019-11-03] MEDS: MIRTAZAPINE 15 MG TABLET PO SCH (22:04)
[2019-11-03] MEDS: ENOXAPARIN SODIUM 30 MG/0.3 ML DISP.SYRIN SQ SCH (22:06)
[2019-11-03] MEDS: ALBUTEROL FS 2.5 MG/0.5 ML VIAL.NEB NEB PRN (23:25)
[2019-11-04] VITALS (7 sets, daily range): BP systolic 112–151; BP diastolic 67–78
[2019-11-04] MEDS: PIPERACILLIN /TAZOBACTAM 3.375 G in IV D5W 50 ML IV SCH ×4 (03:37→21:45)
--- NOTE | 2019-11-04 06:59 | NUR ---
308-2TELE/RN CLOSING NOTES PATIENT SLEPT DURING THE NIGHT, RESPIRATIONS EVEN AND UNLABORED, ATTENDED ALL NEEDS, KEPT COMFORTABLE, TOLERATED IV ANTIBIOTIC WITH NO S/S OF ADVERSE REACTION. BED LOCKED, CALL LIGHTS WITHIN REACH. MONITORED FOR ANY CHANGES. WILL ENDORSE TO AM RN FOR KARIN.
[2019-11-04] MEDS: IPRATROPIUM NEB FS 0.5 MG/2.5 ML AMPUL.NEB IH SCH ×3 (07:51→20:24)
[2019-11-04] MEDS: ACETYLCYSTEINE 10% SOLN 400 MG/4 ML VIAL NEB SCH ×3 (07:51→23:30)
[2019-11-04] MEDS: ALBUTEROL FS 2.5 MG/0.5 ML VIAL.NEB NEB SCH ×3 (07:51→20:24)
--- NOTE | 2019-11-04 08:00 | NUR ---
FREIGHT LOADER OPENING NOTES PATIENT IN BED ALERT AND ORIENTED X 3. VERBALLY RESPONSIVE AND ABLE TO FOLLOW DIRECTIONS. BREATHING REGULAR AND UNLABORED ON OXYGEN AT 3L/MIN VIA NASAL CANNULA. O2 SAT 95%.ON TELE SR HR 76 WITH PVCS AND PT'S HR GOES 170 TACHY WHEN GOING TO THE TOILET WITH ASSIST USING FWW-WITH REST IN BETWEEN TAKING HIS TIME TO EASE HIS BREATHING. DR VARGAS AWARE.RIGHT FOREARM G20 IV LINE PATENT AND INFUSING WELL. NO COMPLAINTS OF PAIN/DISCOMFORT .BED LOW AND LOCKED ON SEMI FOWLERS POSITION, CALL LIGHT WITHIN REACH.
[2019-11-04] MEDS: VALSARTAN 80 MG TABLET PO SCH (09:32)
[2019-11-04] MEDS: ESCITALOPRAM OXALATE (10 MG) 10 MG TABLET PO SCH (09:32)
[2019-11-04] MEDS: PANTOPRAZOLE 40 MG TABLET.DR PO SCH (09:33)
[2019-11-04] MEDS: GABAPENTIN 300 MG CAPSULE PO SCH (09:33)
[2019-11-04] MEDS: MEMANTINE HCL 5 MG TABLET PO SCH ×2 (09:33→17:27)
[2019-11-04] MEDS: ALBUTEROL SULFATE 2 MG TABLET PO SCH ×2 (09:33→17:27)
[2019-11-04] MEDS: POTASSIUM CHLORIDE 20 MEQ TAB.PRT.SR PO SCH ×3 (09:33→10:55)
[2019-11-04] MEDS: methylPREDNISolone SOD SUCC 40 MG/ML VIAL IV SCH ×2 (09:33→21:45)
[2019-11-04] MEDS: MELOXICAM 7.5 MG TABLET PO SCH ×2 (09:33→21:45)
[2019-11-04] MEDS: IV D5/ 0.9% NACL 1,000 ML IV PRN (09:46)
[2019-11-04 11:21] LABS: CALCIUM, SERUM 7.6 mg/dL (8.5-10.1); CREATININE 0.9 mg/dL (0.6-1.3); POTASSIUM 2.9 mmol/L (3.5-5.1)
[2019-11-04 11:27] LABS: ALBUMIN 1.7 g/dL (3.4-5.0); BILIRUBIN,TOTAL 0.2 mg/dL (0.2-1.0); TOTAL PROTEIN, SERUM 4.8 g/dL (6.4-8.2)
--- NOTE | 2019-11-04 11:42 | NUR ---
3RD DOSE OF KLOR CON 20 MEQ WAS REORDERED AND WE WILL ADMINISTER WHEN ITS DUE.
[2019-11-04] MEDS ORDERED: POTASSIUM CHLORIDE 20 MEQ TAB.PRT.SR PO SCH (12:00)
[2019-11-04] MEDS: MONTELUKAST SODIUM (10MG) 10 MG TABLET PO SCH (17:27)
--- NOTE | 2019-11-04 19:05 | NUR ---
MS RN NOTES RECEIVED PT IN BED AWAKE AND ABLE TO MAKE NEEDS KNOWN. PT A/O X3 AND PARAGUAYAN SPEAKING. RESPIRATIONS EVEN AND UNLABORED WITH NO S/S OF ACUTE DISTRESS OR SOB NOTED. NO COMPLAINTS OF PAIN AT THIS TIME. PT WITH EFRA #20G PATENT AND INTACT INFUSING D5NS @100CC/HR. SAFETY MEASURES IN PLACE WITH BED IN LOWEST LOCKED POSITION WITH SIDE RAILS UP X2. CALL LIGHT WITHIN REACH. WILL CONTINUE TO MONITOR.
[2019-11-04] MEDS ORDERED: ENOXAPARIN SODIUM 40 MG/0.4 ML DISP.SYRIN SQ SCH (21:00)
[2019-11-04] MEDS: MIRTAZAPINE 15 MG TABLET PO SCH (21:45)
[2019-11-05] MEDS: PIPERACILLIN /TAZOBACTAM 3.375 G in IV D5W 50 ML IV SCH ×3 (03:07→15:05)
[2019-11-05] MEDS: IV D5/ 0.9% NACL 1,000 ML IV PRN (04:05)
--- NOTE | 2019-11-05 05:44 | NUR ---
MS RN NOTES PT REFUSED MORNING BLOOD DRAW. WILL CONTINUE TO MONITOR.
[2019-11-05] MEDS: ALBUTEROL FS 2.5 MG/0.5 ML VIAL.NEB NEB SCH ×3 (07:18→16:16)
[2019-11-05] MEDS: ACETYLCYSTEINE 10% SOLN 400 MG/4 ML VIAL NEB SCH ×2 (07:18→16:15)
[2019-11-05] MEDS: IPRATROPIUM NEB FS 0.5 MG/2.5 ML AMPUL.NEB IH SCH ×3 (07:18→20:24)
--- NOTE | 2019-11-05 07:21 | NUR ---
MS RN NOTES PT IN BED AWAKE AND ABLE TO MAKE NEEDS KNOWN. PT A/O X3 AND POLISH SPEAKING. RESPIRATIONS EVEN AND UNLABORED WITH NO S/S OF ACUTE DISTRESS OR SOB NOTED THROUGHOUT SHIFT. NO COMPLAINTS OF PAIN AT THIS TIME. PT WITH EFRA #20G PATENT AND INTACT INFUSING D5NS @100CC/HR. PT KEPT CLEAN, DRY, AND COMFORTABLE. SAFETY MEASURES IN PLACE WITH BED IN LOWEST LOCKED POSITION WITH SIDE RAILS UP X2. CALL LIGHT WITHIN REACH. WILL ENDORSE TO ONCOMING NURSE FOR KARIN.
--- NOTE | 2019-11-05 07:30 | NUR ---
PT REFUSED AM BLOOD DRAW FOR LABS INSPITE OF EXPLAINING THE RISKS AND BENEFITS.
--- NOTE | 2019-11-05 08:02 | NUR ---
MS RN NOTES RECEIVED REPORT FROM NIGHT NURSE. PATIENT IS LAYING IN BED. BED IS IN LOWEST LOCKED POSITION WITH SIDE RAILS UP X2, SEMI FOWLERS. APPEARS TO BE COMFORTABLE/ NO COMPLAINTS OF PAIN AT THIS TIME. NO SIGNS OF SOB/ RESPIRATORY DISTRESS NOTED. WILL CONTINUE TO MONITOR.
[2019-11-05 08:38] VITALS: BP 149/93
[2019-11-05 09:00] VITALS: BP 149/93
[2019-11-05] MEDS: ESCITALOPRAM OXALATE (10 MG) 10 MG TABLET PO SCH (09:01)
[2019-11-05] MEDS: VALSARTAN 80 MG TABLET PO SCH (09:01)
[2019-11-05] MEDS: GABAPENTIN 300 MG CAPSULE PO SCH (09:01)
[2019-11-05] MEDS: methylPREDNISolone SOD SUCC 40 MG/ML VIAL IV SCH (09:01)
[2019-11-05] MEDS: MEMANTINE HCL 5 MG TABLET PO SCH ×2 (09:01→16:40)
[2019-11-05] MEDS: MELOXICAM 7.5 MG TABLET PO SCH (09:06)
[2019-11-05] MEDS: PANTOPRAZOLE 40 MG TABLET.DR PO SCH (09:08)
[2019-11-05] MEDS: ALBUTEROL SULFATE 2 MG TABLET PO SCH ×2 (09:10→16:40)
[2019-11-05] MEDS: POTASSIUM CHLORIDE 20 MEQ TAB.PRT.SR PO SCH ×4 (09:24→13:17)
--- NOTE | 2019-11-05 10:00 | NUR ---
PT REFUSED STAT CMP BLOOD DRAW INSPITE OF EXPLAINING THE RISKS AND BENEFITS.
--- NOTE | 2019-11-05 13:18 | NUR ---
TRIED TO PULL OUT K+ 20 MEQ TAB TO THE OMNICELL (CLOSE TO THE NURSING STATION) BUT THE BIN WAS EMPTY AND FORGOT TO CANCEL IT IN THE OMNICELL.NOTIFIED PHARMACY.OBTAIN k+20 MEQ TO THE OMNICELL(BY THE HALLWAY).
[2019-11-05] MEDS ORDERED: predniSONE 20 MG TABLET PO SCH (14:30)
[2019-11-05 16:36] VITALS: BP 142/89
[2019-11-05] MEDS: MONTELUKAST SODIUM (10MG) 10 MG TABLET PO SCH (18:02)
--- NOTE | 2019-11-05 18:17 | NUR ---
MS RN CLOSING NOTES PATIENT IS LAYING IN BED WATCHING TV. PATIENT IS ON 3L NASAL CANULA, NO SOB/ ACUTE RESPIRATORY DISTRESS NOTED. IV SITE IS PATENT AND INTACT, RUNNING D5NS AT 100 MLS/HR. CALL LIGHT IS WITHIN REACH. BED IS IN LOWEST LOCKED POSITION WITH SIDE RAILS UP, SEMI FOWLERS. CALL LIGHT IS WITHIN REACH. WILL ENDORSE REPORT TO CORPORATE PLANNER.
--- NOTE | 2019-11-05 18:37 | NUR ---
MS RN NOTES RECEIVED PHONE CALL FROM JOE (CASE MANAGEMENT) STATING THAT PATIENT WILL BE DISCHARGED TO [facility] AT 2044 TONIGHT.
--- NOTE | 2019-11-05 19:05 | NUR ---
MS RN NOTES RECEIVED PT IN BED AWAKE AND ABLE TO MAKE NEEDS KNOWN. PT A/O X3 AND STATELESS SPEAKING. RESPIRATIONS EVEN AND UNLABORED WITH NO S/S OF ACUTE DISTRESS OR SOB NOTED. NO COMPLAINTS OF PAIN AT THIS TIME. PT WITH EFRA #20G PATENT AND INTACT INFUSING D5NS @100CC/HR. PT AWAITING DISCHARGE TO [address] [facility]. SAFETY MEASURES IN PLACE WITH BED IN LOWEST LOCKED POSITION WITH SIDE RAILS UP X2. CALL LIGHT WITHIN REACH. WILL CONTINUE TO MONITOR.
--- NOTE | 2019-11-05 21:30 | NUR ---
MS CHAIRMAN PRESIDENT AND CHIEF EXECUTIVE OFFICER NOTES PT DISCHARGED FROM UNIT TO [facility] VIA AMBULANCE BY [facility]. PT IN STABLE CONDITION WITH VSS A/O X3. PT IV REMOVED WITH TIP INTACT. NO COMPLAINTS OF PAIN. RESPIRATIONS EVEN AND UNLABORED WITH NO S/S OF ACUTE DISTRESS OR SOB NOTED. DISCHARGE INSTRUCTIONS WENT OVER WITH PT AND FACILITY AND BOTH VERBALIZED UNDERSTANDING. BELONGINGS LIST WENT OVER WITH PT, AND PT DENIED MISSING ITEMS.
== END 2019-11-05 21:30 | DRG 140 ==
LOC: MED 15:06 → TELE 15:42 → MED 10-29 09:09 → TELE 11-01 16:41 → MED 11-04 13:33
PROVIDERS: ADMIT Legal Medicine; ATTEND Legal Medicine
DX: J44.1 Chronic obstructive pulmonary disease with (acute) exacerbation (principal); J96.01 Acute respiratory failure with hypoxia; N17.9 Acute kidney failure, unspecified; R64 Cachexia; J44.0 Chronic obstructive pulmonary disease with (acute) lower respiratory infection; J20.9 Acute bronchitis, unspecified; I10 Essential (primary) hypertension; F03.90 Unspecified dementia, unspecified severity, without behavioral disturbance, psychotic disturbance, mood disturbance, and anxiety; F32.9 Major depressive disorder, single episode, unspecified; Y95 Nosocomial condition; I25.10 Atherosclerotic heart disease of native coronary artery without angina pectoris; N40.0 Benign prostatic hyperplasia without lower urinary tract symptoms; Z87.891 Personal history of nicotine dependence; K21.9 Gastro-esophageal reflux disease without esophagitis; K59.00 Constipation, unspecified; M19.90 Unspecified osteoarthritis, unspecified site; Z79.51 Long term (current) use of inhaled steroids; Z79.899 Other long term (current) drug therapy; E87.6 Hypokalemia
CPT/HCPCS: 36415; 36600; 71045-TC; 80048-TC; 80053-TC; 82248-TC; 82728-TC; 82803-TC; 83540-TC; 83605-TC; 83735-TC; 84100-TC; 84484-TC; 85025-TC; 87081-TC; 94799-TC; 97110-TC; 97116-TC; 97530-TC; A4216; G0378; J1650; J1956; J2060; J2543; J2920; J2930; J3490; J7042; J7060

== ENCOUNTER 2019-11-16 23:11 | Inpatient (IN) | payer MEDICARE, OTHER ==
[~2019-11-16] VITALS: Ht 167.6 cm; Wt 64.0 kg
[~2019-11-16 23:11] MED LIST changes: +ALBU2TAB4 PO; -AZIT250T13 PO; +CYAN10006 IM; +ERGO500040 PO; -FAMO20TA8 PO; +HYDR-3980 PO; -METH4TAB3 PO; +OMEP1CAP PO; +RANI150T8 PO; -TRAZ-182 PO
--- NOTE | 2019-11-16 23:11 | NUR ---
ROWENA FROM CARE FACILITY C/O SOB 30MINS HEADING AND PRIMING TOOL SETTER, 85% ON RA, PT IS ON RESPIRATORY DISTRESS, HOOKED TO SLOT SHIFT SUPERVISOR AND 02 VIA NON REBREATHER, RT AT BEDSIDE AND ER MD. WILL CONTINUE TO MONITOR.
--- NOTE | 2019-11-16 23:14 | NUR ---
SEEN AND EXAMINED BY .
--- NOTE | 2019-11-16 23:20 | NUR ---
INTUBATION DONE BY , RT AT BEDSIDE FOR VENT SET UP.
--- NOTE | 2019-11-16 23:23 | NUR ---
RT pt was brought in by ems for respiratory distress. pt was intubated in er bed 5 with no complications. 7.5 @24 @ lip. pt on following settings: AC 16 500 50% +5. minimal thin secretions suctioned. pt norbert current setting. ABG in 1 hr will continue to monitor.
[2019-11-16] MEDS ORDERED: PROPOFOL 100 ML IV PRN (23:30)
[2019-11-16] MEDS ORDERED: PROPOFOL 100 ML ONE (23:31)
[2019-11-16] MEDS ORDERED: PANT40TA2 PO (23:35)
[2019-11-16] MEDS ORDERED: VALS80TA2 PO (23:35)
[2019-11-16] MEDS ORDERED: MIRT30TA PO (23:35)
[2019-11-17] VITALS (64 sets, daily range): BP systolic 53–137; BP diastolic 23–76
[2019-11-17] MEDS ORDERED: ACETAMINOPHEN 650 MG/SUPP.RECT RC ONE ×2 (00:05→00:30)
[2019-11-17 00:31] LABS: BASOPHILS % (AUTO) 0.2 % (0.0-2.0); EOSINOPHILS % (AUTO) 0.2 % (0.0-6.0); HEMATOCRIT 33 % (39-51); HEMOGLOBIN 10.1 g/dL (13.5-17.5); LYMPHOCYTES # (AUTO) 2.8 /CMM (0.8-4.8); LYMPHOCYTES % (AUTO) 25.9 % (20.0-44.0); MEAN CORPUSCULAR HGB CONC 31 g/dl (31.0-36.0); MEAN CORPUSCULAR VOLUME 92 fL (80-96); MONOCYTES # (AUTO) 0.7 /CMM (0.1-1.30); MONOCYTES % (AUTO) 6.5 % (2.0-12.0); NEUTROPHILS # (AUTO) 7.3 /CMM (1.8-8.9); NEUTROPHILS % (AUTO) 67.2 % (43.0-81.0); PLATELET COUNT (AUTO) 252 /CMM (150-450); RED BLOOD CELL COUNT(AUTO) 3.55 MIL/uL (4.5-6.0); WHITE BLOOD COUNT (AUTO) 10.8 K/uL (4.3-11.0)
--- NOTE | 2019-11-17 00:34 | NUR ---
ADVERTISING EDITOR AT BEDSIDE FOR XRAY.
--- NOTE | 2019-11-17 00:40 | NUR ---
NOTED TACHYCARDIA AND HYPOTENSION, DR. BENNETT MADE AWARE
[2019-11-17 00:46] LABS: CALCIUM, SERUM 8.9 mg/dL (8.5-10.1); CARBON DIOXIDE 38 mmol/L (21-32); CHLORIDE 109 mmol/L (98-107); GLUCOSE 194 mg/dL (74-106); POTASSIUM 4.5 mmol/L (3.5-5.1); SODIUM SERUM 149 mmol/L (136-145); UREA NITROGEN, BLOOD 34 mg/dL (7-18)
[2019-11-17 00:51] LABS: ALANINE AMINOTRANSFERASE 25 U/L (12-78); ALBUMIN 2.1 g/dL (3.4-5.0); ALKALINE PHOSPHATASE 77 U/L (46-116); ASPARTATE AMINOTRANSFERASE 22 U/L (15-37); BILIRUBIN,DIRECT 0.1 mg/dL (0.0-0.2); BILIRUBIN,TOTAL 0.4 mg/dL (0.2-1.0)
[2019-11-17] MEDS ORDERED: IV NS 0.9% 1,000 ML BAG IV ONE (01:00)
--- NOTE | 2019-11-17 01:00 | NUR ---
END TIME FOR NS 1600: 0200
[2019-11-17 01:17] LABS: APPEARANCE,URINE SL CLOUDY (CLEAR); BILIRUBIN,URINE SMALL (NEGATIVE); BLOOD, URINE MODERATE Ery/uL (NEGATIVE); COLOR,URINE DARK YELLO (YELLOW); KETONES,URINE NEGATIVE (NEGATIVE); LEUKOCYTE ESTERASE ,URINE NEGATIVE (NEGATIVE); NITRITE, URINE NEGATIVE (NEGATIVE); PH,URINE 5.5 (5.0-8.0); PROTEIN,URINE >=300 mg/dl (NEGATIVE); UGLUCOSE NEGATIVE (NEGATIVE)
[2019-11-17 01:20] LABS: ABG BASE EXCESS 2.2 mmol/L; ABG OXYGEN SATURATION 97.1 % (92.0-98.5); ABG PCO2 71.8 mmHg (35.0-45.0); ABG PH 7.243 (7.350-7.450); ABG PO2 125.4 mmHg (75.0-100.0); AaDO2 150.3 mmHg; COHb 0.8 % (0.5-1.5); MetHb 0.6 % (0.0-1.5); O2Hb 95.7 % (94.0-97.0); SITE, ABG Right Radial; VENT MODE, BG AC 16 500 50% +5
--- NOTE | 2019-11-17 01:20 | NUR ---
LEFT MESSAGE FOR DR. VARGAS
--- NOTE | 2019-11-17 01:23 | NUR ---
RT ABG vent settings: AC 16 500 50% +3
--- NOTE | 2019-11-17 01:28 | NUR ---
DR. BENNETT ON THE PHONE WITH DR. VARGAS
[2019-11-17] MEDS ORDERED: PIPERACILLIN /TAZOBACTAM 3.375 G in IV D5W 50 ML IV ONE (01:30)
[2019-11-17] MEDS ORDERED: VANCOMYCIN 1 GM in IV D5W 250 ML IV ONE (01:30)
[2019-11-17] MEDS ORDERED: PIPERACILLIN /TAZOBACTAM 3.375 G VIAL IV ONE (01:46)
[2019-11-17] MEDS ORDERED: VANCOMYCIN 1 GM VIAL ONE (01:46)
[2019-11-17 01:50] LABS: RBC,URINE 81-100 /HPF (0-2); WBC,URINE 21-50 /HPF (0-3)
--- NOTE | 2019-11-17 01:50 | NUR ---
END TIME FOR ZOSYN: 4754
[2019-11-17 01:51] LABS: BACTERIA,URINE Moderate /HPF (None Seen); SQUAMOUS EPITHELIAL CELL,UR Moderate /HPF (None Seen)
[2019-11-17] MEDS ORDERED: IV NS 0.9% 1,000 ML BAG IV PRN (02:30)
--- NOTE | 2019-11-17 02:30 | NUR ---
END TIME FOR NS: 8600
--- NOTE | 2019-11-17 02:30 | NUR ---
END TIME FOR VANCO: 0290
[2019-11-17] MEDS ORDERED: NOREPINEPHRINE 8 MG in IV NS 0.9% 242 ML IV PRN (03:00)
[2019-11-17] MEDS ORDERED: ACETAMINOPHEN 650 MG/SUPP.RECT RC PRN (03:00)
--- NOTE | 2019-11-17 03:00 | NUR ---
ASSISTANT MEN'S LACROSSE COACHBIOFUELS PLANT CONSTRUCTION WORKER NOTES RECEIVED PATIENT FROM ER VIA [facility]. PATIENT ORALLY INTUBATED ON MECHANICAL VENT, ON SETTINGS PRESCRIBED BY MD, TOLERATING WELL, NO S/S OF RESPIRATORY DISTRESS. HR IN THE 16Os, DR VARGAS PAGED. PERIPHERAL IVs ALL PATENT AND INTACT, INCLUDING RIGHT FOOT #18G. ALL SITES FREE FROM ANY S/S OF INFILTRATION OR PHLEBITIS. SKIN ISSUES PHOTOGRAPHED AND DOCUMENTED PER PROTOCOL. WILL MONITOR CLOSELY
--- NOTE | 2019-11-17 03:00 | NUR ---
PT WAS TRANSFERRED TO ICU UNDER ACLS W/ RN, RT AND EMT
--- NOTE | 2019-11-17 03:20 | NUR ---
HEALTH AND SAFETY COORDINATOR NOTES PATIENT'S HR NOTED 165 BPM, SUSTAINED. DR VARGAS CALLED, WITH NEW ORDER FOR CARDIZEM 10MG IV PUSH X1. IF INEFFECTIVE, START CARDIZEM DRIP. TITRATE TO KEEP HR <110. ORDER READ BACK FOR CLARIFICATION. WILL CARRY OUT NEW ORDERS
[2019-11-17] MEDS ORDERED: DILTIAZEM HCL 50 MG IV IV ONE (03:30)
[2019-11-17] MEDS: PROPOFOL 100 ML IV PRN ×2 (03:46→13:40)
[2019-11-17] MEDS: IV NS 0.9% 1,000 ML IV PRN ×2 (03:47→18:00)
[2019-11-17] MEDS ORDERED: methylPREDNISolone SOD SUCC 40 MG/ML VIAL IV SCH (05:00)
[2019-11-17 05:18] LABS: BASOPHILS % (AUTO) 0.1 % (0.0-2.0); EOSINOPHILS % (AUTO) 0.1 % (0.0-6.0); HEMATOCRIT 24 % (39-51); LYMPHOCYTES # (AUTO) 0.5 /CMM (0.8-4.8); MEAN CORPUSCULAR HGB CONC 32 g/dl (31.0-36.0); MEAN CORPUSCULAR VOLUME 93 fL (80-96); MONOCYTES # (AUTO) 0.2 /CMM (0.1-1.30); NEUTROPHILS # (AUTO) 5.4 /CMM (1.8-8.9); NEUTROPHILS % (AUTO) 88.8 % (43.0-81.0); PLATELET COUNT (AUTO) 172 /CMM (150-450); RED BLOOD CELL COUNT(AUTO) 2.57 MIL/uL (4.5-6.0)
--- NOTE | 2019-11-17 05:20 | NUR ---
HIGH SCHOOL SOCIAL STUDIES TEACHER NOTES 0400 DR VARGAS PAGED, NO CALL BACK, MESSAGE LEFT. 0520 ABLE TO GET A HOLD OF MD,RELAYED THAT BP HAS BEEN TRENDING LOW AFTER CARDIZEM ADMINISTERED. PER MD, START NEOSYNEPHRINE DRIP INSTEAD OF LEVOPHED, AND START AMIODARONE DRIP PER PROTOCOL. ALL ORDERS READ BACK FOR CLARIFICATION. WILL CARRY OUT ALL NEW ORDERS
[2019-11-17 05:25] LABS: MAGNESIUM 1.8 mg/dL (1.8-2.4); POTASSIUM 3.9 mmol/L (3.5-5.1)
[2019-11-17] MEDS ORDERED: PHENYLEPHRINE 50 MG in IV NS 0.9% 245 ML IV PRN (05:30)
[2019-11-17] MEDS ORDERED: AMIODARONE 450 MG in IV D5W 241 ML IV PRN (05:30)
[2019-11-17] MEDS ORDERED: AMIODARONE 150 MG in IV D5W 100 ML IV ONE (05:30)
[2019-11-17] MEDS ORDERED: AMIODARONE 150 MG/3 ML VIAL IV ONE ×2 (05:37)
[2019-11-17] MEDS ORDERED: PHENYLEPHRINE 10 MG/ML VIAL ONE (05:38)
[2019-11-17 05:48] LABS: HEMOGLOBIN 7.5 g/dL (13.5-17.5)
--- NOTE | 2019-11-17 07:00 | NUR ---
QA REVIEWER NOTES PATIENT REMAINS ORALLY INTUABTED ON MWECHANICAL VENTILATION. DEION PICC RUNNING NS @ 75ML/HR, DIPRIVAN GTT @ 5MCG, AND NEOSYNEPHRINE DRIP @ 0.5MCG. WILL ENDORSE THE PATIENT TO THE AM SHIFT NURSE FOR CONTINUITY OF CARE
[2019-11-17] MEDS ORDERED: FEE PK DOSING 1 MIN EA MC ONE (07:20)
[2019-11-17] MEDS ORDERED: SUCCINYLCHOLINE CHLORIDE 20 MG/ML VIAL IV ONE (08:38)
[2019-11-17] MEDS: PIPERACILLIN /TAZOBACTAM 3.375 G in IV D5W 50 ML IV SCH ×4 (08:46→23:14)
[2019-11-17] MEDS: PANTOPRAZOLE 40 MG VIAL IV SCH (08:49)
[2019-11-17] MEDS: HYDROCORTISONE SOD SUCCINATE 100 MG/2 ML VIAL IV SCH ×3 (08:49→19:04)
--- NOTE | 2019-11-17 09:30 | NUR ---
ICU/RN: Dr Mendoza rounds; updated on pt status. New orders noted and carried out.
[2019-11-17] MEDS: ALBUTEROL FS 2.5 MG/3 ML VIAL.NEB NEB SCH ×2 (11:00→19:30)
[2019-11-17] MEDS: IPRATROPIUM NEB FS 0.5 MG/2.5 ML AMPUL.NEB NEB SCH ×2 (11:00→19:30)
--- NOTE | 2019-11-17 11:50 | NUR ---
ICU/RN: Dr Saleh at bedside, update on pt status. Critical labs (lactic acid) and downward trend of hemoglobin reviewed. New orders noted and carried out.
[2019-11-17] MEDS ORDERED: IV NS 0.9% 1,000 ML IV PRN (12:00)
[2019-11-17] MEDS ORDERED: IPRATROPIUM/ALBUTEROL INHALER IH SCH (12:00)
[2019-11-17] MEDS: VANCOMYCIN 0.75 GM in IV D5W 250 ML IV SCH (14:53)
--- NOTE | 2019-11-17 17:45 | NUR ---
ICU/RN: S/P Central line insertion by Ashok Pitts NP. Pt tolerated well. Okay to use per CEPHALOMETRIC TRACER.
--- NOTE | 2019-11-17 18:15 | NUR ---
ICU/RN: Pt noted as increasingly awake after line insertion. Pt alert, follows commands. Oriented to unit and educated. Nods head in agreement. Titrated diprivan to goal SAS score 3 per protocol for pt comfort.
--- NOTE | 2019-11-17 18:36 | NUR ---
RT end of the shift report. pt. 83 Y old male rec. @0700 AM none responsive, orally intubated ETT # 7.5 @ 24 cm lip line on vent with noted settings, alarms are set and functional. equal chest rise noted. bilaterally rales b/s noted. sux'd for minimal amt. velazquez secretions. Vent changes done post ABG per Dr. Mendoza order at the bedside. inline tx's starting at 1930 per MD t/o shift. SERVICE DESK TEAM LEAD done, HME changed, pt. remain stable. Vent plugged into red out let and AMBU bag remain at the bedside. report will pass to PM shift. Addendum: 11/17/19 at 1839 by ZO SCHWARTZ RT Amended: Links added.
--- NOTE | 2019-11-17 19:30 | NUR ---
TEMP RECRUITER INITIAL SHIFT NOTES RECEIVED PATIENT IN BED, EYES CLOSED, SEDATED ON DIPRIVAN DRIP, EASILY WOKEN TO TACTILE STIMULI, ABLE TO FOLLOW SIMPLE COMMANDS WHILE OFF SEDATION. ORALLY INTUBATED, ON MECHANICAL VENTILATION, SETTINGS PRESCRIBED, TOLERATING WELL, FREE FROM ANY S/S OF RESPIRATORY DISTRESS. OGT PATENT AND INTACT, CLAMPED. BEDSIDE CENTRIFUGAL WAX MOLDER READS SINUS RHYTHM. HYDE CATHETER PATENT AND INTACT, DRAINING CLEAR, DARK YELLOW URINE VIA GRAVITY. DEION PICC PATENT AND INTACT, INFUSING NS @ 75 ML/HR AND DIPRIVAN DRIP @ 10MCG
[2019-11-18] VITALS (32 sets, daily range): BP systolic 108–139; BP diastolic 62–82
[2019-11-18] MEDS: IPRATROPIUM NEB FS 0.5 MG/2.5 ML AMPUL.NEB NEB SCH ×4 (01:30→19:30)
[2019-11-18] MEDS: ALBUTEROL FS 2.5 MG/3 ML VIAL.NEB NEB SCH ×4 (01:30→19:30)
[2019-11-18] MEDS: VANCOMYCIN 0.75 GM in IV D5W 250 ML IV SCH ×2 (02:32→16:21)
[2019-11-18] MEDS: PROPOFOL 100 ML IV PRN ×3 (02:32→20:25)
--- NOTE | 2019-11-18 04:00 | NUR ---
OPERATING ROOM SPECIALIST NOTES PATIENT NOTED TO BE MORE AWAKE DESPITE DIPRIVAN DRIP, STARTING TO BECOME AGITATED, SHAKING HEAD TO THE LEFT AND RIGHT. DIPRIVAN DRIP TITRATED UP, WILL MONITOR
[2019-11-18 04:46] LABS: BASOPHILS % (AUTO) 0.2 % (0.0-2.0); HEMATOCRIT 23 % (39-51); HEMOGLOBIN 7.2 g/dL (13.5-17.5); LYMPHOCYTES # (AUTO) 0.4 /CMM (0.8-4.8); MEAN CORPUSCULAR HGB CONC 31 g/dl (31.0-36.0); MEAN CORPUSCULAR VOLUME 92 fL (80-96); MONOCYTES # (AUTO) 0.4 /CMM (0.1-1.30); MONOCYTES % (AUTO) 4.7 % (2.0-12.0); NEUTROPHILS % (AUTO) 91.1 % (43.0-81.0); PLATELET COUNT (AUTO) 131 /CMM (150-450); RED BLOOD CELL COUNT(AUTO) 2.54 MIL/uL (4.5-6.0); WHITE BLOOD COUNT (AUTO) 8.8 K/uL (4.3-11.0)
[2019-11-18 05:11] LABS: BILIRUBIN,TOTAL 0.4 mg/dL (0.2-1.0); CALCIUM, SERUM 7.4 mg/dL (8.5-10.1); CREATININE 0.9 mg/dL (0.6-1.3); MAGNESIUM 1.6 mg/dL (1.8-2.4); PHOSPHORUS 3.2 mg/dL (2.5-4.9); POTASSIUM 3.3 mmol/L (3.5-5.1); TOTAL PROTEIN, SERUM 4.8 g/dL (6.4-8.2)
[2019-11-18] MEDS: PIPERACILLIN /TAZOBACTAM 3.375 G in IV D5W 50 ML IV SCH ×3 (05:21→17:38)
[2019-11-18 05:28] LABS: ALBUMIN 1.3 g/dL (3.4-5.0)
--- NOTE | 2019-11-18 07:00 | NUR ---
PLATFORM ENGINEER NOTES PATIENT RESTING IN BED, APPEARS COMFORTABLE AT THIS TIME, TITRATION OF DIPRIVAN DRIP TO 25MCG EFFECTIVE. WILL ENDORSE THE PATIENT TO THE AM SHIFT NURSE FOR CONTINUITY OF CARE
[2019-11-18] MEDS: Magnesium 1GM/D5W 100ML PREMIX 100 ML IV SCH ×2 (07:42→08:46)
[2019-11-18] MEDS ORDERED: Z GUARD REMEDY 2 OZ OINT TP PRN (08:00)
--- NOTE | 2019-11-18 08:01 | NUR ---
WOUND CARE CONSULT: PT PRESENTS WITH SACRAL SCARRING, PRESENT ON ADMISSION. RECOMMENDATIONS MADE FOR SKIN PROTECTION. DISCUSSED WITH NURSING STAFF. FIRST STEP LOW AIRLOSS MATTRESS ON ORDER. WILL SEE PRN. LAU IN AGREEMENT WITH PLAN OF CARE. CURRENT SENIA SCORE IS 9. Addendum: 11/18/19 at 0802 by SHEILA MATHIS WNDNU Amended: Links added.
[2019-11-18] MEDS: PANTOPRAZOLE 40 MG VIAL IV SCH (08:16)
[2019-11-18] MEDS: HYDROCORTISONE SOD SUCCINATE 100 MG/2 ML VIAL IV SCH ×3 (08:16→16:21)
[2019-11-18] MEDS: POTASSIUM CL. PREMIX PERIPHER. 50 ML IV SCH ×6 (08:16→13:07)
[2019-11-18] MEDS: Z GUARD REMEDY 2 OZ OINT TP SCH (08:16)
--- NOTE | 2019-11-18 08:47 | NUR ---
RN OPENING NOTES RECEIVED PATIENT RESTING IN BED COMFORTABLY. PT IS SEDATED ON DIPRIVAN DRIP, RUNNING AT 25 MCG/MIN, TOLERATING WELL, NO AGITATION PRESENT. HE IS ON MECHANICAL VENT VIA ETT, 22 AT THE LIP, TOLERATING SETTINGS WELL, NO SOB OR RESP DISTRESS PRESENT. TELE MONITOR SHOWING SR. OGTUBE IS PATENT AND INTACT, SET TO SUCTION. HYDE CATH IS PATENT AND INTACT, DRAINING URINE BY GRAVITY. IV SITE ON RFEMORAL TLC, LFA 18, AND RFA 20G IS PATENT AND INTACT, NS RUNNING AT 75 ML.HR. SAFETY MEASURES HAVE BEEN IMPLEMENTED, CALL LIGHT IS WITHIN REACH, BED IS IN LOWEST AND LOCKED POSITION, SIDE RAILS UP X2, WILL CONTINUE TO MONITOR FOR ANY CHANGES.
[2019-11-18] MEDS: IV NS 0.9% 1,000 ML IV PRN (11:05)
--- NOTE | 2019-11-18 11:15 | NUR ---
RN NOTES IV POTASSIUM GIVEN OFF SCHEDULE BECAUSE MEDICATION WAS UNAVAILABLE WHEN IT WAS INITIALLY ORDERED. WILL CONTINUE TO MONITOR AND ADMIN ALL PRESCRIBED DOSE
--- NOTE | 2019-11-18 12:00 | NUR ---
RN NOTES PATIENT HAS HIS EYES OPEN AND IS ABLE TO COMPREHEND AND RESPOND TO VERBAL STIMULI BY HEAD NODDING. INCREASED PROPOFOL DRIP FROM 35 MCG/MIN TO 40 MCG/MIN. VITAL SIGNS ARE STABLE. WILL CONTINUE TO MONITOR FOR ANY CHANGES
[2019-11-18] MEDS: SOD FERRIC GLUC 125 MG in IV NS 0.9% 100 ML IV SCH (13:43)
[2019-11-18 14:41] LABS: ABG BASE EXCESS -1.7 mmol/L; ABG OXYGEN SATURATION 98.6 % (92.0-98.5); ABG PCO2 37.1 mmHg (35.0-45.0); ABG PH 7.405 (7.350-7.450); ABG PO2 195.6 mmHg (75.0-100.0); AaDO2 119.2 mmHg; COHb 0.3 % (0.5-1.5); MetHb 0.5 % (0.0-1.5); O2Hb 97.8 % (94.0-97.0); SITE, ABG Right Radial; VENT MODE, BG AC 14 500 50% +5
--- NOTE | 2019-11-18 16:21 | NUR ---
RN NOTES 1500 DOSE OF VANCO GIVEN LATE DUE TO VANCO TROUGH DELAY, WILL CONTINUE TO MONITOR
--- NOTE | 2019-11-18 17:16 | NUR ---
RN NOTES WHILE CLEANING THE PT, HE BECAME SLIGHTLY AGITATED AND STARTED REACHING TOWARDS HIS ETT. PROPOFOL WAS INCREASED FROM 35 TO 40 MCG/MIN. WILL CONTINUE TO MONITOR FOR ANY CHANGES.
--- NOTE | 2019-11-18 17:49 | NUR ---
RT end of the shift report. pt. 83 Y old male rec. @0700 am non-responsive, orally intubated ETT # 7.5 @23 cm lip line on vent with noted settings. B/S bilaterally rales noted. Sux'd for minimal AMT. velazquez secretions. tx's not given per MD. no vent changes t/o shift. except titrating Fio2 to 40%, FERMENTER HELPER done, HME changed, pt. remain stable. vent into red out let and AMBU bag remain at the bedside. report will pass to PM shift. Addendum: 11/18/19 at 1752 by ZO SCHWARTZ RT Amended: Links added.
--- NOTE | 2019-11-18 17:50 | NUR ---
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 SENT MESSAGE TO DR. VARGAS, WAITING FOR RESPONSE, CONTACT ISOLATION HAS BEEN INITIATED, WILL CONTINUE TO MONITOR FOR ANY CHANGES.
--- NOTE | 2019-11-18 18:13 | NUR ---
RN NOTES RECEIVED ORDER FOR BACTROBAN NARES BID FOR 5 DAYS, WILL CONTINUE TO MONITOR
--- NOTE | 2019-11-18 19:00 | NUR ---
PATIENT CONTINUES TO BE R/O COVID-19 IN NO ACUTE DISTRESS. PATIENT TOLERATING VENT WITH SETTING AT AC 14, TV 500, FIO2 40, PEEP 5. ETT IS 7.5/22 AT THE LIP. SR ON THE MONITOR AND HYDE CATHETER CLEAN DRY INTACT AND PATENT WITH YELLOW URINE DRAINING. OG TUBE IS CLEAN AND CLAMPED. PATIENT TURNED Q2H PER PROTOCOL. RIGHT FEMORAL TLC PICC IS CLEAN DRY INTACT AND PATENT WITH DIPRIVAN @ 40 AND NS @ 75ML/HR. BED IN LOW LOCK POSITION WITH RIALS UP X 2. CALL LIGHT WITHIN REACH AND ALL SAFETY MEASURES ENSURED AND CARRIED OUT.
--- NOTE | 2019-11-18 19:11 | NUR ---
RN CLOSING NOTES PT IS RESTING IN BED COMFORTABLY AT THIS TIME. PT IS ON DIPRIVAN DRIP AT 40 MCG/MIN, TOLERATING WELL, PT IS SEDATED WITH NO AGITATION. ETT TUBE IS PATENT AND INTACT, MECH VENT, TOLERATING SETTINGS WELL. BILATERAL SOFT WRIST RESTRAINTS INTACT. NO ACUTE CHANGES OCCURRED THROUGHOUT THE SHIFT, VITAL SIGNS ARE STABLE, PT NEEDS HAVE BEEN MET. SAFETY MEASURES HAVE BEEN IMPLEMENTED, CALL LIGHT IS WITHIN REACH, BED IS IN LOWEST AND LOCKED POSITION, SIDE RAILS UP X2, PT HAS BEEN ENDORSED TO NIGHTSHIFT RN FOR KARIN.
[2019-11-18] MEDS ORDERED: MEROPENEM 1 G in IV NS 0.9% 100 ML IV SCH (19:30)
--- NOTE | 2019-11-18 20:28 | NUR ---
TX NOT GIVEN PER DR. REED. RN DESHAUN AND CHARGE NURSE MADELAINE AWARE
--- NOTE | 2019-11-18 20:28 | NUR ---
BREATHING TREATMENT NOT GIVEN PER MD DR. RAMESH REED. CHARGE NURSE AWARE AND RT AWARE. PATIENT IS INTUBATED AND IN NO ACUTE DISTRESS.
[2019-11-18] MEDS: MEROPENEM 1 G in IV NS 0.9% 100 ML IV SCH (20:30)
[2019-11-18] MEDS ORDERED: MUPIROCIN OINT 2% 22 GM TUBE SCH (21:00)
[2019-11-18] MEDS ORDERED: MEROPENEM 500 MG in IV NS 0.9% 50 ML IV SCH (21:00)
[2019-11-19] VITALS (34 sets, daily range): BP systolic 97–187; BP diastolic 51–118
[2019-11-19] MEDS: IPRATROPIUM NEB FS 0.5 MG/2.5 ML AMPUL.NEB NEB SCH ×3 (01:22→14:08)
[2019-11-19] MEDS: ALBUTEROL FS 2.5 MG/3 ML VIAL.NEB NEB SCH ×3 (01:23→14:08)
[2019-11-19] MEDS: PROPOFOL 100 ML IV PRN (03:49)
[2019-11-19] MEDS: VANCOMYCIN 0.75 GM in IV D5W 250 ML IV SCH ×2 (03:49→14:08)
[2019-11-19] MEDS: IV NS 0.9% 1,000 ML IV PRN ×2 (03:50→16:09)
[2019-11-19 04:25] LABS: BASOPHILS % (AUTO) 0.1 % (0.0-2.0); HEMATOCRIT 24 % (39-51); HEMOGLOBIN 7.3 g/dL (13.5-17.5); LYMPHOCYTES # (AUTO) 0.6 /CMM (0.8-4.8); LYMPHOCYTES % (AUTO) 5.5 % (20.0-44.0); MEAN CORPUSCULAR HGB CONC 31 g/dl (31.0-36.0); MEAN CORPUSCULAR VOLUME 92 fL (80-96); MONOCYTES # (AUTO) 0.6 /CMM (0.1-1.30); MONOCYTES % (AUTO) 5.1 % (2.0-12.0); NEUTROPHILS # (AUTO) 9.8 /CMM (1.8-8.9); NEUTROPHILS % (AUTO) 89.3 % (43.0-81.0); PLATELET COUNT (AUTO) 121 /CMM (150-450); RED BLOOD CELL COUNT(AUTO) 2.59 MIL/uL (4.5-6.0)
[2019-11-19 04:41] LABS: CALCIUM, SERUM 7.6 mg/dL (8.5-10.1); CREATININE 0.8 mg/dL (0.6-1.3); MAGNESIUM 2.3 mg/dL (1.8-2.4)
--- NOTE | 2019-11-19 06:00 | NUR ---
RECEIVED CALL FROM FALCONER MVA OPERATOR COURTNEY WITH RESULTS OF CHEST XRAY THAT FEEDING TUBE IS LOOPED IN GASTROESOPHAGEAL REGION AND RECOMMEND TO REPOSITION PATIENT READ BACK RESULTS AND CARRIED OUT.
--- NOTE | 2019-11-19 06:43 | NUR ---
PATIENT REMAINS IN NO ACUTE DISTRESS IN BED. PATIENT DID NOT HAVE ANY SIGNIFICANT CHANGE IN CONDITION DURING SHIFT. ALL NEEDS MET, ALL ORDERS CARRIED OUT WILL ENDORSE CARE TO AM RN FOR CONTINUITY OF CARE.
--- NOTE | 2019-11-19 07:15 | NUR ---
HOME HEALTH PROVIDER NOTES RECEIVED PATIENT SEDATED , NOT IN ACUTE DISTRESS , RESPIRATIONS EVEN AND UNLABORED WITH SPO2 OF 100% VIA MECHANICAL VENT SETTINGS ORDERED , ETT 7.01/[address] , SR 75 ON BEDSIDE MONITOR , OGT PATENT AND INTACT CLAMPED , R FEMORAL PICCLINE WITH NS @ 75ML/HR , AND DIPRIVAN @ 40MCG/KG/MIN INFUSING WELL ,PIV IN PLACE , ALL NEEDS ATTENDED , BED ON LOW AND LOCKED POSITION , SIDE RAILS X2 CALL LIGHT WITHIN REACH, HOB @ 45 , WILL CONTINUE TO MONITOR
--- NOTE | 2019-11-19 07:40 | NUR ---
RT PATIENT REC'D ORALLY INTUBATED ON [facility] VENT. ETT SECURE AND PATENT. VENT SETTINGS AND ALARMS CHECKED. MICHAU BAG AT HOB Addendum: 11/19/19 at 1612 by JL OTT RT Amended: Links added.
[2019-11-19] MEDS: PANTOPRAZOLE 40 MG VIAL IV SCH (08:07)
[2019-11-19] MEDS: Z GUARD REMEDY 2 OZ OINT TP SCH (08:07)
[2019-11-19] MEDS: HYDROCORTISONE SOD SUCCINATE 100 MG/2 ML VIAL IV SCH ×3 (08:07→16:09)
[2019-11-19] MEDS: MUPIROCIN OINT 2% 22 GM TUBE SCH ×2 (08:08→16:09)
[2019-11-19] MEDS: MEROPENEM 1 G in IV NS 0.9% 100 ML IV SCH ×2 (08:08→21:25)
--- NOTE | 2019-11-19 09:30 | NUR ---
RT PATIENT PLACED ON VENT WEANING MODE PER DR CRUZ. VENT ALARMS CHECKED + AUDIBLE. AMBU BAG AT HOB Addendum: 11/19/19 at 1612 by JL OTT RT Amended: Links added.
[2019-11-19] MEDS ORDERED: DC PROPOFOL WHEN EXTUBATED XX PRN ×2 (10:00→12:00)
[2019-11-19 11:34] LABS: ABG BASE EXCESS 0.9 mmol/L; ABG OXYGEN SATURATION 97.6 % (92.0-98.5); ABG PCO2 48.4 mmHg (35.0-45.0); ABG PO2 110.7 mmHg (75.0-100.0); AaDO2 118.8 mmHg; COHb 0.3 % (0.5-1.5); MetHb 0.4 % (0.0-1.5); O2Hb 96.9 % (94.0-97.0); SITE, ABG Right Radial
--- NOTE | 2019-11-19 11:35 | NUR ---
EMBOSSING TOOLSETTER NOTES ABG RESULT RELAYED TO DR CRUZ , RR OF 25-30 , TOLERATING SIMV , ALERT X1 ABLE TO FOLLOW COMMANDS , MD AT BEDSIDE ASSESSING THE PT , VS STABLE , PER MD OK TO EXTUBATE
--- NOTE | 2019-11-19 11:45 | NUR ---
BOOKMOBILE CLERK NOTES PT EXTUBATED, STABLE , ON5LPM NC SPO2 OF 100% , V/S STABLE , RESTRAINTS DISCONTINUED , WILL CONTINUE TO MONITOR
--- NOTE | 2019-11-19 11:45 | NUR ---
RT PATIENT WEANED AND EXTUBATED PER DR CRUZ. PATIENT WAS PLACED ON 5L N/C SAUL WELL. CONT TO MONITOR CLOSELY. Addendum: 11/19/19 at 1612 by JL OTT RT Amended: Links added.
[2019-11-19] MEDS: SOD FERRIC GLUC 125 MG in IV NS 0.9% 100 ML IV SCH (14:06)
--- NOTE | 2019-11-19 15:32 | NUR ---
TWISTING FRAME OPERATOR NOTES PATIENT NOTED TO BE IN RESPIRATORY DISTRESS ON 5LPM NC SPO2 OF 83% , RR 35CPM , HR ST 137 BP 179/115, AGITATED , APPLIED NON REBEATHER MASK @ 15LPM . RT JL AT BEDSIDE , AOX1-2 ABLE TO FOLLOW COMMANDS , WILL RE ASSESS
--- NOTE | 2019-11-19 16:00 | NUR ---
STRAIGHTEDGE MACHINE OPERATOR HELPER NOTES PT STATUS IMPROVED , NOTED TO BE COMFORTABLE WITH NO SIGNS OF DISTRESS , ON 15LPM NON REBREATHER MASK WITH SPO2 OF 100% , HR OF SR 92 , BP OF 149/80 , AFEBRILE , BILATERAL SOFT WRIST RESTRAINS APPLIED PT IS REMOVING MASK , WILL CONTINUE TO MONITOR
--- NOTE | 2019-11-19 19:11 | NUR ---
INTERIOR PAINTER NOTES PATIENT STABLE AOX1-2 DIVEHI SPEAKING , ABLE TO SPEAK AND UNDERSTAND A LITTLE GREENLANDIC , NOT IN ACUTE DISTRESS , RESPIRATIONS EVEN AND UNLABORED WITH SPO2 OF 100% VIA NON REBREATHER MASK @ 15LPM , SR 80 ON BEDSIDE MONITOR , R FEMORAL PICCLINE WITH NS @ 75ML/HR , AND NS AT TKO INFUSING WELL ,PIV IN PLACE , ALL NEEDS ATTENDED , BED ON LOW AND LOCKED POSITION , SIDE RAILS X2 CALL LIGHT WITHIN REACH, HOB @ 45 , REPORT GIVEN TO DESHAUN FOR CONTINUITY OF CARE
[2019-11-19] MEDS ORDERED: ALBUTEROL FS 2.5 MG/3 ML VIAL.NEB INH PRN (20:00)
[2019-11-19] MEDS ORDERED: ALBUTEROL SULFATE INH 18 GM HFA.AER.AD IH PRN (20:30)
[2019-11-20] VITALS (24 sets, daily range): BP systolic 122–162; BP diastolic 62–119
[2019-11-20] MEDS: ALBUTEROL SULFATE INH 18 GM HFA.AER.AD IH SCH ×4 (00:12→17:28)
[2019-11-20] MEDS: IV NS 0.9% 1,000 ML IV PRN ×2 (03:30→16:01)
[2019-11-20] MEDS: VANCOMYCIN 0.75 GM in IV D5W 250 ML IV SCH ×3 (03:30→17:28)
[2019-11-20 04:19] LABS: BASOPHILS % (AUTO) 0.1 % (0.0-2.0); HEMATOCRIT 25 % (39-51); HEMOGLOBIN 7.8 g/dL (13.5-17.5); LYMPHOCYTES # (AUTO) 0.9 /CMM (0.8-4.8); LYMPHOCYTES % (AUTO) 7.5 % (20.0-44.0); MEAN CORPUSCULAR HGB CONC 31 g/dl (31.0-36.0); MEAN CORPUSCULAR VOLUME 92 fL (80-96); MONOCYTES # (AUTO) 0.6 /CMM (0.1-1.30); NEUTROPHILS # (AUTO) 10.5 /CMM (1.8-8.9); NEUTROPHILS % (AUTO) 87.4 % (43.0-81.0); PLATELET COUNT (AUTO) 130 /CMM (150-450); RED BLOOD CELL COUNT(AUTO) 2.76 MIL/uL (4.5-6.0); WHITE BLOOD COUNT (AUTO) 12.1 K/uL (4.3-11.0)
[2019-11-20 04:29] LABS: CALCIUM, SERUM 7.8 mg/dL (8.5-10.1); CREATININE 0.7 mg/dL (0.6-1.3); POTASSIUM 3.8 mmol/L (3.5-5.1)
--- NOTE | 2019-11-20 07:10 | NUR ---
SOCIAL MEDIA PROJECT MANAGER NOTES RECEIVED PATIENT AOX1-2 MALTESE SPEAKING , ABLE TO SPEAK AND UNDERSTAND A LITTLE MOHAWK , NOT IN ACUTE DISTRESS , RESPIRATIONS EVEN AND UNLABORED WITH SPO2 OF 100% VIA 5LPM NC , SR 90 ON BEDSIDE MONITOR , R FEMORAL PICCLINE WITH NS @ 75ML/HR , AND NS AT TKO INFUSING WELL ,PIV IN PLACE , ALL NEEDS ATTENDED , BED ON LOW AND LOCKED POSITION , SIDE RAILS X2 CALL LIGHT WITHIN REACH, HOB @ 45 , WILL CONTINUE TO MONITOR
[2019-11-20] MEDS: MEROPENEM 1 G in IV NS 0.9% 100 ML IV SCH ×2 (08:08→21:00)
[2019-11-20] MEDS: HYDROCORTISONE SOD SUCCINATE 100 MG/2 ML VIAL IV SCH ×3 (08:08→16:28)
[2019-11-20] MEDS: PANTOPRAZOLE 40 MG VIAL IV SCH (08:08)
[2019-11-20] MEDS: MUPIROCIN OINT 2% 22 GM TUBE SCH ×2 (08:09→16:28)
[2019-11-20] MEDS: Z GUARD REMEDY 2 OZ OINT TP SCH (08:09)
--- NOTE | 2019-11-20 08:45 | NUR ---
BEVERAGE SALES CONSULTANT NOTES PATIENT NOTED TO BE IN RESPIRATORY DISTRESS ON 5LPM NC SPO2 OF 87% , RR 350-35CPM , HR ST 120-125 BP AGITATED , COMPLAINING THAT HE IS SHORT OF BREATH , APPLIED NON REBREATHER MASK @ 15LPM . PATIENT AOX2 , WILL RE ASSESS
--- NOTE | 2019-11-20 09:00 | NUR ---
INORGANIC CHEMICAL TECHNICIAN NOTES PT IMPROVED AFTER PLACING HIM @ NON REBREATHER MASK @ 15LPM WITH SPO2 OF 100% , HR SR 90'S , RR 18-20 , BP WNL , DENIES ANY SOB AND DISCOMFORT AT THIS TIME . WILL CONTINUE TO MONITOR
[2019-11-20] MEDS: ENOXAPARIN SODIUM 40 MG/0.4 ML DISP.SYRIN SQ SCH (09:12)
--- NOTE | 2019-11-20 12:00 | NUR ---
RN INFUSION NOTES NOTIFIED DR CRUZ THAT PT IS BACK ON NON REBREATHER MASK PT DEVELOPED SOB , TACHYCARDIC AND TACHYPNEIC , PER MD PUT PT ON HIGH FLOW O2 , CALLED RT FOR HIGH O2 ORDER
--- NOTE | 2019-11-20 12:07 | NUR ---
CRUCIBLE FURNACE TENDER NOTES RT AT BEDSIDE , PLACED PT ON 6LPN NC SPO2 OF 100% , TOLERATING WELL AT THIS TIME , NO SIGNS OF SOB OR DISTRESS , VS STABLE , WILL CONTINUE TO MONITOR
--- NOTE | 2019-11-20 12:25 | NUR ---
DEVELOPER AUTOMATIC NOTES PLACED PT BACK ON 15LPM NON RE BREATHER MASK PT COMPLAIN OF SOB , HR 105-110 , TACYPNEIC @ 30-35CPM , CALLED RT PARIKH FOR HIGH FLOW O2 ORDER PER MD .
--- NOTE | 2019-11-20 12:57 | NUR ---
GREEN JOBS TRAINER NOTES SEEN AND EVALUATED BY DR VARGAS , DISCUSSED PT LABS , S/P EXTUBATION YESTERDAY CURRENTLY ON 15LPM NON REBREATHER MASK , TITRATED TO 6LPM NC PT DIDN'T TOLERATE IT , AOX1-2 , NOTED WITH MUCOID DARK TARRY STOOL X1 , PER MD PT HAS IT LAST ADMISSION ADVISE TO MONITOR IT . PENDING SWALLOW EVAL , F/U MEDICATION RECONCILIATION . MD AWARE
--- NOTE | 2019-11-20 14:00 | NUR ---
CUSTOMER DEVELOPMENT REPRESENTATIVE NOTES PLACED PT ON SIMPLE MASK @ 8LPM , SPO2 OF 100% NO SIGNS OF DISTRESS , TOLERATING WELL AT THIS TIME , MD AWARE HIGH FLOW NC IS NOT AVAILABLE AT THIS TIME , WILL CONTINUE TO MONITOR
[2019-11-20] MEDS: SOD FERRIC GLUC 125 MG in IV NS 0.9% 100 ML IV SCH (14:16)
--- NOTE | 2019-11-20 14:22 | NUR ---
SLURRY PLANT OPERATOR NOTES SEEN AND EVALUATED BY SPEECH THERAPIST FOR SWALLOW EVAL , AWAITING FOR RECOMMENDATION
--- NOTE | 2019-11-20 18:55 | NUR ---
COUNTER CLERK TRACTOR PARTS NOTES PATIENT STABLE RESTING ON BED , AOX1-2 KYRGYZ SPEAKING , ABLE TO SPEAK AND UNDERSTAND A LITTLE FILIPINO , NOT IN ACUTE DISTRESS , RESPIRATIONS EVEN AND UNLABORED WITH SPO2 OF 100% VIA 8LPM SIMPLE MASK , SR 85 ON BEDSIDE MONITOR , R FEMORAL PICCLINE WITH NS @ 75ML/HR , AND NS AT TKO INFUSING WELL , ALL NEEDS ATTENDED , BED ON LOW AND LOCKED POSITION , SIDE RAILS X2 CALL LIGHT WITHIN REACH, HOB @ 45 , REPORT GIVEN TO SUSHMA FOR CONTINUITY OF CARE
--- NOTE | 2019-11-20 20:00 | NUR ---
POKER MANAGER NOTES Received patient awake alert and oriented 2-3.Chinese speaking but understand and speaks little Bahraini.Respiration even and unlabored with O2 8L via simple mask.Tolerating well spo2 100%. VSS.SR per monitor.NPO status with maintenance IVF NS infusing via R Femoral PICC Line.Site intact.FC to gravity drainage.Turned & repositioned.Safety precaution maintained.Bed low locked and side rails up x2.Denies pain or any discomfort.Continue monitoring.
--- NOTE | 2019-11-20 22:00 | NUR ---
Patient with BM X1 pasty brownish reddish.Perineal care and bed bath rendered.Complete linens changed.PICC line dressing soiled.Changed dressing under aseptic technique.Turned and repositioned.HOB elevated.
--- NOTE | 2019-11-20 22:30 | NUR ---
SPLUNK CONSULTANT NOTES. Patient removing simple mask multiple times and desaturating to 80's.Bilateral soft wrist restraints applied.
--- NOTE | 2019-11-20 23:03 | NUR ---
CONCRETE MIXING PLANT LABORER NOTES Patient in and out of Afib 150's-160 when agitated and back to NSR when resting. Dr.Sam Churchill notified with orders and carried out.
[2019-11-21] VITALS (24 sets, daily range): BP systolic 103–175; BP diastolic 53–100
--- NOTE | 2019-11-21 01:25 | NUR ---
COUNTER HAND NOTES Patient with on and off Afib with RVR 150's-160's-170's non sustaining and back to NSR 70's-80's. Troponin 1.161 and patient on Lovenox.BM colored brownish reddish.Patient denies chest pain or sob.Appears comfortable.EKG NSR with RBBB. notified.No new orders received.
[2019-11-21] MEDS ORDERED: AMIODARONE 150 MG/3 ML VIAL IV ONE (02:09)
--- NOTE | 2019-11-21 02:23 | NUR ---
Patient tele AFIB with RVR 170's-190's called to with orders. Amiodarone bolus followed by gtt started per protocol.Denies chest pain. Continue to monitor.
[2019-11-21] MEDS ORDERED: AMIODARONE 150 MG in IV D5W 100 ML IV ONE (02:30)
[2019-11-21] MEDS ORDERED: AMIODARONE 450 MG in IV D5W 241 ML IV PRN (02:30)
[2019-11-21] MEDS: VANCOMYCIN 0.75 GM in IV D5W 250 ML IV SCH ×2 (02:49→15:21)
[2019-11-21 04:38] LABS: BASOPHILS % (AUTO) 0.1 % (0.0-2.0); HEMATOCRIT 24 % (39-51); HEMOGLOBIN 7.2 g/dL (13.5-17.5); LYMPHOCYTES # (AUTO) 0.3 /CMM (0.8-4.8); LYMPHOCYTES % (AUTO) 2.3 % (20.0-44.0); MEAN CORPUSCULAR HGB CONC 30 g/dl (31.0-36.0); MEAN CORPUSCULAR VOLUME 91 fL (80-96); MONOCYTES # (AUTO) 0.5 /CMM (0.1-1.30); MONOCYTES % (AUTO) 3.5 % (2.0-12.0); NEUTROPHILS # (AUTO) 14.1 /CMM (1.8-8.9); NEUTROPHILS % (AUTO) 94.1 % (43.0-81.0); PLATELET COUNT (AUTO) 127 /CMM (150-450); RED BLOOD CELL COUNT(AUTO) 2.61 MIL/uL (4.5-6.0)
[2019-11-21 04:51] LABS: CALCIUM, SERUM 7.6 mg/dL (8.5-10.1); CREATININE 0.7 mg/dL (0.6-1.3); MAGNESIUM 1.8 mg/dL (1.8-2.4); POTASSIUM 3.1 mmol/L (3.5-5.1)
[2019-11-21 05:19] LABS: BAND % (MANUAL) 9 % (0.0-5.0); LYMPHOCYTES % (MANUAL) 4 % (16-48); METAMYELOCYTES % 2 % (0-0); MONOCYTES % (MANUAL) 4 % (0-11.0); MYELOCYTES % 1 % (0-0); NEUTROPHILS % (MANUAL) 80 (42-76)
[2019-11-21] MEDS: IV NS 0.9% 1,000 ML IV PRN ×2 (05:22→20:00)
--- NOTE | 2019-11-21 06:00 | NUR ---
Patient resting in no acute distress.AM care done.BM X2 during the shift pasty brownish reddish. Due medications administered,VSS.IVF and Amiodarone gtt infusing well.Turned and repositioned. Patient get agitated occasionally.Safety measures maintained.
[2019-11-21] MEDS: ALBUTEROL SULFATE INH 18 GM HFA.AER.AD IH SCH ×5 (06:05→23:57)
[2019-11-21] MEDS: PANTOPRAZOLE 40 MG VIAL IV SCH (08:18)
[2019-11-21] MEDS: MEROPENEM 1 G in IV NS 0.9% 100 ML IV SCH ×2 (08:18→21:00)
[2019-11-21] MEDS: HYDROCORTISONE SOD SUCCINATE 100 MG/2 ML VIAL IV SCH ×3 (08:19→16:50)
[2019-11-21] MEDS: ENOXAPARIN SODIUM 40 MG/0.4 ML DISP.SYRIN SQ SCH (08:19)
[2019-11-21] MEDS: Z GUARD REMEDY 2 OZ OINT TP SCH (08:20)
[2019-11-21] MEDS: MUPIROCIN OINT 2% 22 GM TUBE SCH ×2 (08:20→16:50)
--- NOTE | 2019-11-21 08:30 | NUR ---
RT NOTE: RT CALLED TO NT SUCTION PATIENT. OBTAINED LARGE AMOUNT OF THICK HOOK/LIGHT GREEN SECRETIONS. PATIENT TOLERATED WELL. CHARGE NURSE(CLIFFORD) AWARE.
--- NOTE | 2019-11-21 09:36 | NUR ---
received pt from nightman, alert, follows commands, uncooperative on times, SR, off of amio per Dr Smith, on simple mask at 8L, sat well, non pitting edema all extremities, lungs congested, NPO, f/c OK output, v/s stable, no pain, pt turned and repositioned.
[2019-11-21] MEDS: POTASSIUM CL. PREMIX PERIPHER. 50 ML IV SCH ×4 (09:41→12:37)
[2019-11-21] MEDS: ACETYLCYSTEINE 10% SOLN 400 MG/4 ML VIAL NEB SCH ×3 (12:30→23:22)
[2019-11-21] MEDS: DIGOXIN INJ 0.5 MG/2 ML AMPUL IV SCH ×3 (12:40→23:55)
[2019-11-21] MEDS: SOD FERRIC GLUC 125 MG in IV NS 0.9% 100 ML IV SCH (14:33)
--- NOTE | 2019-11-21 16:28 | NUR ---
pt is resting in the bed, alert, follows command, ST, SR, on simple mask at 8L, sat well, NPO, f/c OK output, 2 BMs, v/s stable, no pain, pt cleaned, changed and repositioned.
--- NOTE | 2019-11-21 18:19 | NUR ---
pt has been having bloody stools, Dr Sarmiento notified, orders received and carried out.
--- NOTE | 2019-11-21 18:55 | NUR ---
RT NOTE: WAS NOT NOTIFIED OF RESPIRATORY TREATMENTS. INCOMING NIGHT RT NOTIFIED.
--- NOTE | 2019-11-21 20:00 | NUR ---
Received patient a/o x1-2 very agitated yelling removing simple mask and desaturating to 80's.Very uncooperative bilateral soft wrist restraints applied.HOB elevated.ST 101. BP elevated.NPO status with maintenance iv infusing to R femoral PICC line site intact. FC to gravity.BM X1 small amount coffee ground.Kept clean and dry.Turned and repositioned. Safety measures implemented with bed low locked side rails up x 3.Call light within easy reach and frequent rounding.Continue monitoring.
[2019-11-22] VITALS (25 sets, daily range): BP systolic 114–169; BP diastolic 46–95
--- NOTE | 2019-11-22 | NUR ---
Patient doze on and off.VSS.NSR per monitor.Turned and repositioned.
[2019-11-22] MEDS: VANCOMYCIN 0.75 GM in IV D5W 250 ML IV SCH ×2 (02:24→14:46)
[2019-11-22] MEDS ORDERED: IV NS 0.9% 250 ML IV ONE (02:30)
--- NOTE | 2019-11-22 04:00 | NUR ---
Patient awake.VSS.Hygienic measures done.Turned and repositioned.Patient desaturate to 80's even at rest.Encouraged to cough and deep breath.Due medications administered. Continue to monitor.
[2019-11-22 04:52] LABS: BASOPHILS % (AUTO) 0.1 % (0.0-2.0); HEMATOCRIT 24 % (39-51); HEMOGLOBIN 7.2 g/dL (13.5-17.5); LYMPHOCYTES # (AUTO) 0.9 /CMM (0.8-4.8); LYMPHOCYTES % (AUTO) 6.3 % (20.0-44.0); MEAN CORPUSCULAR HGB CONC 31 g/dl (31.0-36.0); MEAN CORPUSCULAR VOLUME 91 fL (80-96); MONOCYTES # (AUTO) 0.6 /CMM (0.1-1.30); MONOCYTES % (AUTO) 4.3 % (2.0-12.0); NEUTROPHILS # (AUTO) 13.2 /CMM (1.8-8.9); NEUTROPHILS % (AUTO) 89.3 % (43.0-81.0); PLATELET COUNT (AUTO) 144 /CMM (150-450); RED BLOOD CELL COUNT(AUTO) 2.59 MIL/uL (4.5-6.0); WHITE BLOOD COUNT (AUTO) 14.8 K/uL (4.3-11.0)
[2019-11-22 05:03] LABS: CALCIUM, SERUM 7.9 mg/dL (8.5-10.1); CREATININE 0.7 mg/dL (0.6-1.3); MAGNESIUM 1.8 mg/dL (1.8-2.4); POTASSIUM 3.6 mmol/L (3.5-5.1)
[2019-11-22] MEDS: ALBUTEROL SULFATE INH 18 GM HFA.AER.AD IH SCH ×4 (05:47→23:49)
--- NOTE | 2019-11-22 07:10 | NUR ---
RN INITIAL NOTES RECEIVED PT AWAKE, A/OX1-2. ON 02 VIA MASK AT 8LPM. HOB ELEVATED. NO RESPIRATORY DISTRESS NOTED. NO SIGNS OF PAIN NOTED. IVF INFUSING. FC IN PLACE. NO HEMATURIA NOTED. PT REPOSITIONED, COMFORTABLE. WILL CONTINUE TO MONITOR
--- NOTE | 2019-11-22 07:20 | NUR ---
Patient in no acute distress.Tachycardic 102.Denies pain.IV's infusing well. Moderate urine output.Turned and repositioned.Report given to day shift RN For KARIN.
[2019-11-22] MEDS: ACETYLCYSTEINE 10% SOLN 400 MG/4 ML VIAL NEB SCH ×3 (08:09→22:44)
[2019-11-22] MEDS: HYDROCORTISONE SOD SUCCINATE 100 MG/2 ML VIAL IV SCH ×3 (08:35→16:15)
[2019-11-22] MEDS: MUPIROCIN OINT 2% 22 GM TUBE SCH ×2 (08:36→16:15)
[2019-11-22] MEDS: Z GUARD REMEDY 2 OZ OINT TP SCH (08:36)
[2019-11-22] MEDS: MEROPENEM 1 G in IV NS 0.9% 100 ML IV SCH ×2 (08:36→20:13)
[2019-11-22] MEDS: IV NS 0.9% 1,000 ML IV PRN (08:36)
[2019-11-22] MEDS: PANTOPRAZOLE 40 MG VIAL IV SCH ×2 (08:36→16:15)
--- NOTE | 2019-11-22 10:30 | NUR ---
RN NOTES 1000 SEEN AND EXAMINED B[address] DR CRUZ. MD AWARE OF LAB VALUES, CXR AND ABG RESULT. PT ON VENTURI MASK AT 15LPM. KEPT HOB ELEVATED. NO RESPIRATORY DISTRESS NOTED. WILL CLOSELY MONITOR 1030 SEEN AND EXAMINED BY DR VARGAS. PT A/OX1-2. ON VENTURI MASK. KEPT HOB ELEVATED. NO RESPIRATORY DISTRESS NOTED. DENIES ANY PAIN. IVF INFUSING. AFEBRILE. AWARE OF LAB VALUES AND IMAGING RESULT. WILL CONTINUE TO MONITOR
[2019-11-22 11:43] LABS: ABG BASE EXCESS -3.7 mmol/L; ABG OXYGEN SATURATION 91.3 % (92.0-98.5); ABG PCO2 38.1 mmHg (35.0-45.0); ABG PH 7.365 (7.350-7.450); AaDO2 177.4 mmHg; COHb 0.1 % (0.5-1.5); MetHb 0.3 % (0.0-1.5); O2Hb 90.9 % (94.0-97.0); SITE, ABG Right Radial; VENT MODE, BG VENTI MASK 40%
[2019-11-22] MEDS: SOD FERRIC GLUC 125 MG in IV NS 0.9% 100 ML IV SCH (14:46)
--- NOTE | 2019-11-22 18:24 | NUR ---
RN CLOSING NOTES PT ON VENTURI MASK. NO RESPIRATORY DISTRESS NOTED. NO SOB NOTED. KEPT COMFORTABLE. IVF INFUSING. TX PROVIDED ORDERED. KEPT CLEAN AND DRY. REPOSITIONED Q2. BLE ELEVATED. WILL ENDORSE FOR CONTINUITY OF CARE.
[2019-11-23] VITALS (24 sets, daily range): BP systolic 67–171; BP diastolic 38–117
[2019-11-23] MEDS: IV NS 0.9% 1,000 ML IV PRN ×2 (00:05→17:34)
[2019-11-23] MEDS: VANCOMYCIN 0.75 GM in IV D5W 250 ML IV SCH ×2 (02:24→15:37)
[2019-11-23 04:41] LABS: BASOPHILS % (AUTO) 0.2 % (0.0-2.0); HEMATOCRIT 23 % (39-51); HEMOGLOBIN 7.1 g/dL (13.5-17.5); LYMPHOCYTES # (AUTO) 0.8 /CMM (0.8-4.8); LYMPHOCYTES % (AUTO) 4.4 % (20.0-44.0); MEAN CORPUSCULAR HGB CONC 31 g/dl (31.0-36.0); MEAN CORPUSCULAR VOLUME 92 fL (80-96); MONOCYTES # (AUTO) 0.7 /CMM (0.1-1.30); NEUTROPHILS # (AUTO) 16.3 /CMM (1.8-8.9); NEUTROPHILS % (AUTO) 91.4 % (43.0-81.0); PLATELET COUNT (AUTO) 183 /CMM (150-450); RED BLOOD CELL COUNT(AUTO) 2.49 MIL/uL (4.5-6.0); WHITE BLOOD COUNT (AUTO) 17.9 K/uL (4.3-11.0)
[2019-11-23 04:49] LABS: CREATININE 0.7 mg/dL (0.6-1.3); MAGNESIUM 1.6 mg/dL (1.8-2.4); POTASSIUM 3.1 mmol/L (3.5-5.1)
[2019-11-23] MEDS: ALBUTEROL SULFATE INH 18 GM HFA.AER.AD IH SCH (06:11)
[2019-11-23] MEDS ORDERED: POTASSIUM CHLORIDE 20 MEQ TAB.PRT.SR PO SCH (08:00)
[2019-11-23] MEDS: HYDROCORTISONE SOD SUCCINATE 100 MG/2 ML VIAL IV SCH ×3 (09:12→18:25)
[2019-11-23] MEDS: Magnesium 1GM/D5W 100ML PREMIX 100 ML IV SCH ×2 (09:12→10:15)
[2019-11-23] MEDS: MEROPENEM 1 G in IV NS 0.9% 100 ML IV SCH ×2 (09:12→21:18)
[2019-11-23] MEDS: PANTOPRAZOLE 40 MG VIAL IV SCH ×2 (09:13→18:23)
[2019-11-23] MEDS: ACETYLCYSTEINE 10% SOLN 400 MG/4 ML VIAL NEB SCH ×3 (09:13→23:28)
[2019-11-23] MEDS: Z GUARD REMEDY 2 OZ OINT TP SCH (09:19)
[2019-11-23] MEDS: MUPIROCIN OINT 2% 22 GM TUBE SCH ×2 (09:20→17:00)
[2019-11-23] MEDS: POTASSIUM CL. PREMIX PERIPHER. 50 ML IV SCH ×6 (10:15→17:47)
[2019-11-23] MEDS: JEVITY 1.2 CAL 1,000 ML BOTTLE NG PRN (17:33)
--- NOTE | 2019-11-23 19:30 | NUR ---
END OF SHIFT NOTE: PT ORIENTED TO SELF. PT HAD A FAIRLY UNEVENTFUL SHIFT. DR. CRUZ STATED PT NEEDS TO STAY IN ICU WHILE ON VENTURI MASK. PT'S HEART RATE ELEVATED INTO THE 160'S INTERMITTENTLY DURING THE DAY WHEN PATIENT GOT ANXIOUS, HIGH HEART RATE DID NOT SUSTAIN LONG AND CAME BACK DOWN TO NORMAL WHEN PATIENT WAS CALM. SPEECH THERAPY STATED THEY WOUND NOT DO ANOTHER SWALLOW EVAL WHILE PATIENTS RESPIRATORY STATUS IS COMPROMISED. ORDER FOR NG TUBE PLACEMENT AND TUBE FEEDINGS RECEIVED. NG TUBE INSERTED IN LEFT NARE AT 1730, PT PULLED OUT TUBE AT 1830, ENDORSED TO LIBRARY TECHNICAL ASSISTANT TO REPLACE NG TUBE AND TO KEEP RESTRAINTS ON PATIENTS. PT CHECKED ON HOURLY AND PRN BY NURSING STAFF.
--- NOTE | 2019-11-23 19:45 | NUR ---
PET RESORT CONCIERGE NOTES RECEIVED PATIENT AWAKE IN BED SITTING POSITION, A/OX1-2, ON 02 VIA MASK AT 5LPM, NO BREATHING EVEN AND UNLABORED, NO S/S OF SOB/ACUTE RESPIRATORY DISTRESS NOTED, HOB ELEVATED, AFIB WITH PVCS IN TELE MONITOR WITH HR IN 80S AT THIS TIME, OPTIMAL O2 SAT LEVEL, NO C/O OR S/S OF PAIN OR DISCOMFORT AT THIS TIME, IVF INFUSING ORDERED VIA FEMORAL TLC, FC IN PLACE. DRAINING YELLOW URINE BY GRAVITY, PATENCY INTACT, BED LOCKED AND IN LOW POSITION, S/R OF BED UP PER PROTOCOL, CALL LIGHT W/I REACH, WILL CONTINUE TO MONITOR CLOSELY.
[2019-11-24] VITALS (50 sets, daily range): BP systolic 117–171; BP diastolic 59–102
[2019-11-24] MEDS: ALBUTEROL SULFATE INH 18 GM HFA.AER.AD IH SCH ×4 (00:39→17:07)
[2019-11-24] MEDS: VANCOMYCIN 0.75 GM in IV D5W 250 ML IV SCH ×2 (02:13→14:47)
[2019-11-24 04:38] LABS: BASOPHILS % (AUTO) 0.1 % (0.0-2.0); LYMPHOCYTES # (AUTO) 0.6 /CMM (0.8-4.8); LYMPHOCYTES % (AUTO) 3.8 % (20.0-44.0); MEAN CORPUSCULAR HGB CONC 31 g/dl (31.0-36.0); MEAN CORPUSCULAR VOLUME 92 fL (80-96); MONOCYTES # (AUTO) 0.7 /CMM (0.1-1.30); MONOCYTES % (AUTO) 3.9 % (2.0-12.0); NEUTROPHILS # (AUTO) 15.7 /CMM (1.8-8.9); NEUTROPHILS % (AUTO) 92.2 % (43.0-81.0); PLATELET COUNT (AUTO) 175 /CMM (150-450); RED BLOOD CELL COUNT(AUTO) 2.18 MIL/uL (4.5-6.0)
[2019-11-24 04:45] LABS: CALCIUM, SERUM 7.8 mg/dL (8.5-10.1); CREATININE 0.8 mg/dL (0.6-1.3); POTASSIUM 3.5 mmol/L (3.5-5.1)
[2019-11-24 05:24] LABS: HEMATOCRIT 20 % (39-51)
[2019-11-24 05:25] LABS: HEMOGLOBIN 6.2 g/dL (13.5-17.5)
[2019-11-24 05:34] LABS: LYMPHOCYTES % (MANUAL) 2 % (16-48); MONOCYTES % (MANUAL) 1 % (0-11.0); NEUTROPHILS % (MANUAL) 97 (42-76)
--- NOTE | 2019-11-24 06:00 | NUR ---
RN NOTES, RECEIVED CRITICAL RESULT FOR H&H FROM LAB AND REPORTED TO DR VARGAS, AND HE REPLIED WITH ORDER TO TRANSFUSE 2 UNITS OF BLOOD, NOTED AND CARRIED OUT.
--- NOTE | 2019-11-24 07:00 | NUR ---
RN NOTES RECEIVED PT ON BED, A/Ox1-2, ON VENTURI MASK AT 50% FIO2, NO SOB NOTED, ON TELE SR-A.FIB HR IN 110'S , NS AT 75CC/HR RUNNING VIA R FEMORAL TLC IV SITE, HYDE DRAINING TO GRAVITY, WITH YELLOW URINE, TF AT 20CC/HR RUNNING VIA R NARE NGT, TOLERATING WELL, NO RESIDUAL NOTED, RATE INCREASED TO 30 CC/HR AT THIS TIME, BED LOCKED AND IN LOWEST POSITION, SR UP x3, CALL LIGHT WITHIN EASY REACH, BED LOCKED AND IN LOWEST POSITION, CONTINUE TO MONITOR.
[2019-11-24] MEDS: IV NS 0.9% 1,000 ML IV PRN (07:02)
--- NOTE | 2019-11-24 07:15 | NUR ---
RN CLOSING NOTES, PATIENT ENDORSED TO BUTCH MORE FOR CONTINUATIONS OF CARE, PATIENT YELLING AT TIMES, WHENEVER SHOWS HIGH BP AND HIGH HR, AFTER HE CALM DOWN BP AND HR NORMALIZED, ENDORSED TO PRICILA ABOUT THE BLOOD TRANSFUSION, PATIENT CONTINUE ON FEEDING VIA RIGHT NARE NG, TOLERATED WELL, NO DISTRESS/SOB DURING THE NIGHT, CONTINUE ON BILATERAL WRIST SOFT RESTRAINS, NO CIRCULATION COMPROMISED, PULSES AND CIRCULATION CHECKED OFTEN.
[2019-11-24] MEDS: ACETYLCYSTEINE 10% SOLN 400 MG/4 ML VIAL NEB SCH ×3 (08:25→23:29)
[2019-11-24] MEDS ORDERED: CLONIDINE HCL 0.2MG/24H PTWK 1 EA PATCH TD SCH (08:30)
[2019-11-24] MEDS: HYDROCORTISONE SOD SUCCINATE 100 MG/2 ML VIAL IV SCH ×3 (09:07→16:35)
[2019-11-24] MEDS: PANTOPRAZOLE 40 MG VIAL IV SCH ×2 (09:08→16:35)
[2019-11-24] MEDS: MUPIROCIN OINT 2% 22 GM TUBE SCH ×2 (09:09→16:35)
[2019-11-24] MEDS: MEROPENEM 1 G in IV NS 0.9% 100 ML IV SCH ×2 (09:10→20:48)
[2019-11-24] MEDS: Z GUARD REMEDY 2 OZ OINT TP SCH (09:10)
--- NOTE | 2019-11-24 12:00 | NUR ---
RN NOTES FIRST UNIT OF PRBC INFUSED, VSS STABLE, NO COMPLICATION NOTED .
--- NOTE | 2019-11-24 15:00 | NUR ---
RN NOTES SECOND UNIT OF PRBC INFUSED , NO DISTRESS NOTED , CONTINUE TO MONITOR .
[2019-11-24] MEDS: JEVITY 1.2 CAL 1,000 ML BOTTLE NG PRN (16:39)
--- NOTE | 2019-11-24 18:00 | NUR ---
RN NOTES PT ON 5-6L O2 N/C , O2 SAT 94-95%, NGT FEEDING AT 55 CC/HR AT THIS TIME, PT TOLERATING WELL, NO RESIDUAL NOTED, HYDE DRAINING TO GRAVITY, R FEMORAL TLC INTACT, ORDER RECEIVED TO D/C FEMORAL LINE AND INSERT MIDLINE, NURSING NEON SIGN ERECTOR NOTIFED , NO SIGNIFICANT CHANGES NOTED ON THIS SHIFT , WILL ENDORSE TO SHAKE SAWYER NURSE FOR CONTINUITY OF CARE.
--- NOTE | 2019-11-24 19:30 | NUR ---
RN NOTES RECEIVED PT AWAKE WITH O2 6LPM VIA NC WITH AFIB ON TELE MONITOR. ALERT TO SELF. DENIES PAIN / WITH NGTF TOLERATED WELL WITH HOB KEPT ELEVATED. IV SITE ON RIGHT FEMORAL TLC INTACT RUNNING WITH NS @ 0.9% NS @ 75 ML/HR. AWAITING TO PLACE MIDLINE TO REMOVE FEMORAL LINE PER ID ORDER. PT IS S/P 2 UNIT BLD. TRANSFUSION. HYDE CATH DRAINED WITH YELLOW SEDIMENTED URINE KEPT OFF FROM THE FLOOR. KEPT PATIENT CLEAN AND DRY. GURPREET LT URNE AND REPOSITION ORDER
--- NOTE | 2019-11-24 20:00 | NUR ---
RN NOTES MIDLINE INSERTED ON DEION WITH GOOD BLOOD RETURN. RIGHT FEMORAL TLC REMOVED WITH INTACT CATHETER. NO BLEEDING NOTED.
--- NOTE | 2019-11-24 22:15 | NUR ---
RN NOTES PT IS SATURATION IS GOING DOWN TO 88% PLACED VENTURI MASK @ 50 LPM BY RT WENT UP TO 97%. HOB ELEVATED AND KEPT PT COMFORTBLE. PT NOTICED PT WITH EPISODE OF ANXIETY. COMFORT CARE RENDEDRED TO MAKE THE PATIENT RELAX. WILL CONTINUE TO MONITOR.
[2019-11-25] VITALS (32 sets, daily range): BP systolic 90–215; BP diastolic 37–141
[2019-11-25] MEDS: IV NS 0.9% 1,000 ML IV PRN (00:36)
[2019-11-25] MEDS: ALBUTEROL SULFATE INH 18 GM HFA.AER.AD IH SCH ×5 (01:38→23:31)
--- NOTE | 2019-11-25 02:30 | NUR ---
RN NOTE INFORMED DR. VARGAS REGARDING PATIENT HYPERTENSION AND TACHYCARDIA HR 130'S AND TACHYPNEIC RESP. 30'S. PT IS AWAKE. BILATERAL LUNG SOUND CRACKLES. BREATHING LABORED HOB ELEVATED VENTI MASK @ 15LPM FIO2 50%. SATURATION 97%. DENIES PAIN. WAITING TO CALL BACK.
[2019-11-25 03:40] LABS: ABG BASE EXCESS 2.2 mmol/L; ABG OXYGEN SATURATION 96.4 % (92.0-98.5); ABG PCO2 52.9 mmHg (35.0-45.0); ABG PH 7.352 (7.350-7.450); ABG PO2 92.1 mmHg (75.0-100.0); AaDO2 204.9 mmHg; COHb 0.5 % (0.5-1.5); MetHb 0.5 % (0.0-1.5); O2Hb 95.4 % (94.0-97.0); SITE, ABG Right Radial; VENT MODE, BG VENTI MASK 50%
--- NOTE | 2019-11-25 04:15 | NUR ---
RN NOTES REPOSITION PATIENT ON RIGHT SIDE AND SLOWLY CALM DOWN , REMAINED TACHYCARDIC BUT SBP WENT DOWN TO 139, ABG TURNS GOOD INFORMED MD STILL WAITING FOR ORDER.
[2019-11-25 04:30] LABS: BASOPHILS % (AUTO) 0.1 % (0.0-2.0); HEMATOCRIT 35 % (39-51); HEMOGLOBIN 11.6 g/dL (13.5-17.5); LYMPHOCYTES # (AUTO) 0.8 /CMM (0.8-4.8); LYMPHOCYTES % (AUTO) 5.5 % (20.0-44.0); MEAN CORPUSCULAR HGB CONC 33 g/dl (31.0-36.0); MEAN CORPUSCULAR VOLUME 88 fL (80-96); MONOCYTES # (AUTO) 0.3 /CMM (0.1-1.30); MONOCYTES % (AUTO) 2.2 % (2.0-12.0); NEUTROPHILS # (AUTO) 14.2 /CMM (1.8-8.9); NEUTROPHILS % (AUTO) 92.2 % (43.0-81.0); PLATELET COUNT (AUTO) 209 /CMM (150-450); WHITE BLOOD COUNT (AUTO) 15.4 K/uL (4.3-11.0)
[2019-11-25 04:40] LABS: CALCIUM, SERUM 8.3 mg/dL (8.5-10.1); CREATININE 0.9 mg/dL (0.6-1.3); MAGNESIUM 1.6 mg/dL (1.8-2.4); POTASSIUM 3.4 mmol/L (3.5-5.1)
--- NOTE | 2019-11-25 05:38 | NUR ---
RN NOTES RECEIVED AN ORDER TO DR. ALICIA MOFFETT GIVE LASIX 20 MG IV ONCE AND DECREASE IVF TO 25 ML/HR NOTED AND CARRIED OUT ORDER WILL WAIT MEDICINE TO VERIFIED BY PHARMACY PATIENT BP NOW IS 128/64 MMHG HR 112 SATURATION 99%. PT ASLEEP AT THIS TIME. HOB KEPT ELEVATED . WILL CONTINUE TO MONITOR.
[2019-11-25] MEDS ORDERED: FUROSEMIDE 20 MG/2 ML VIAL IV SCH (06:00)
[2019-11-25] MEDS ORDERED: POTASSIUM CHLORIDE 20 MEQ POWDER PACKET NG SCH (07:00)
[2019-11-25] MEDS: ACETYLCYSTEINE 10% SOLN 400 MG/4 ML VIAL NEB SCH ×3 (07:23→23:22)
--- NOTE | 2019-11-25 07:30 | NUR ---
RN OPENING NOTE: RECEIVED PATIENT IN BED THIS MORNING SLEEPING. PATIENT IS EASILY AROUSED, ALERT X ORIENTED X1. PATIENT IS ON VENTURI MASK 15L/MIN, LUNG SOUNDS CLEAR, SHALLOW RESPIRATIONS, NO SIGNS OF RESPIRATORY DISTRESS NOTED, SATING WELL. PATIENT IS ON TELE MONITOR, PAROXYSMAL, UNCONTROLLED AFIB 117 W/ BBB NOTED. DEION MIDLINE, FLUSHING WELL, SITE C/D/I, NO SIGNS OF COMPLICATIONS NOTED. NG TUBE IN RIGHT NARES, AUSCULTATED TO CHECK FOR PLACEMENT, NO COMPLICATIONS NOTED, NO RESIDUAL UPON ASPIRATION, RUNNING JEVITY 1/2 @ 55CC/HR. PATIENT HAS HYDE, DRAINING YELLOW, SEDIMENTS NOTED. ON CONTACT ISOLATIONS FOR MRSA OF NARES. BUE RESTRAINTS D/T PATIENT REMOVING MEDICAL EQUIPMENT. BUE, BLE, SCROTAL EDEMA NOTED. SAFETY MEASURES IMPLEMENTED, BED IN LOWEST POSITION, LOCKED, SIDE RAILS UP X2, CALL LIGHT WITHIN REACH. WILL CONTINUE TO CLOSELY MONITOR PATIENT FOR CHANGES.
[2019-11-25] MEDS: NITROGLYCERIN 30 GM TUBE TP SCH ×3 (08:02→21:35)
[2019-11-25] MEDS: PANTOPRAZOLE 40 MG/PACK PACK NG SCH (08:08)
[2019-11-25] MEDS: HYDROCORTISONE SOD SUCCINATE 100 MG/2 ML VIAL IV SCH ×2 (08:08→17:18)
[2019-11-25] MEDS: MUPIROCIN OINT 2% 22 GM TUBE SCH ×2 (08:09→17:19)
[2019-11-25] MEDS: Z GUARD REMEDY 2 OZ OINT TP SCH (08:09)
[2019-11-25] MEDS ORDERED: Magnesium 1GM/D5W 100ML PREMIX 100 ML IV SCH (08:30)
[2019-11-25] MEDS: Magnesium 1GM/D5W 100ML PREMIX 100 ML IV SCH ×2 (08:32→10:35)
[2019-11-25 14:01] LABS: ABG BASE EXCESS 4.7 mmol/L; ABG PCO2 60.1 mmHg (35.0-45.0); ABG PH 7.342 (7.350-7.450); ABG PO2 108.5 mmHg (75.0-100.0); AaDO2 180.4 mmHg; COHb 0.4 % (0.5-1.5); MetHb 0.7 % (0.0-1.5); O2Hb 95.9 % (94.0-97.0); SITE, ABG Right Radial
--- NOTE | 2019-11-25 14:13 | NUR ---
PT LETHARGIC AT THIS TIME, INCREASED WORK OF BREATH. DR. CRUZ AT BEDSIDE. ABG ORDERED AND DRAWN. PT PUT ON BIPAP 15/5 AT 50% POST ABG RESULTS. WILL CONTINUE TO MONITOR.
--- NOTE | 2019-11-25 14:20 | NUR ---
PT PLACED INTO BIPAP WITH PARAMETERS BELOW PER DR. CRUZ DUE TO INCREASED WORK OF BREATHING: IPAP 15 EPAP 5 RATE 12 FIO2 50% BREATH SOUNDS BILATERAL CRACKLES. AMBU BAG @ BEDSIDE. Addendum: 11/25/19 at 1428 by MILTON DIGGS RT Amended: Links added.
[2019-11-25] MEDS ORDERED: VANCOMYCIN 1.25 GM in IV D5W 250 ML IV SCH (15:00)
[2019-11-25] MEDS: JEVITY 1.2 CAL 1,000 ML BOTTLE NG PRN (16:58)
--- NOTE | 2019-11-25 19:45 | NUR ---
LEARNING SOLUTIONS SPECIALIST NOTE RECEIVED PATIENT AROUND THIS TIME. PATIENT IN BED RESTING WITH HOB ELEVATED. CONFUSED. RESPONSIVE TO VERBAL AND TACTILE STIMULI. ON BIPAP. ON NGT FEEDING, JEVITY 1.2 RUNNING AT 55 ML/HR. ON HYDE, URINE IS YELLOW IN COLOR AND NOTED WITH SEDIMENTS. PATIENT IS ON BILATERAL SOFT WRIST RESTRAINTS. IN NO APPARENT DISTRESS NOTED AT THIS TIME. WILL CONTINUE TO MONITOR.
--- NOTE | 2019-11-25 19:54 | NUR ---
RCVD PT ON BIPAP 15/5, RATE 12, 50%. BREATHING TX GIVEN PER MD'S ORDER . NO ADVERSE REACTION NOTED. NO RESPIRATORY DISTRESS NOTED AT THIS TIME . WILL CONTINUE TO MONITOR THE PT T/O THE SHIFT.
[2019-11-25] MEDS: MEROPENEM 500 MG in IV NS 0.9% 50 ML IV SCH (21:22)
[2019-11-26] VITALS (26 sets, daily range): BP systolic 85–161; BP diastolic 35–90
--- NOTE | 2019-11-26 03:30 | NUR ---
FLORAL ASSOCIATE NOTE PATIENT TOLERATED BED BATH AT THIS TIME. PATIENT NOTED WITH 1 SMALL BM. WOUND CARE MEASURES RENDERED. WILL CONTINUE TO MONITOR.
[2019-11-26 04:24] LABS: BASOPHILS # (AUTO) 0.1 /CMM (0.0-0.2); BASOPHILS % (AUTO) 0.3 % (0.0-2.0); HEMATOCRIT 34 % (39-51); LYMPHOCYTES # (AUTO) 0.7 /CMM (0.8-4.8); LYMPHOCYTES % (AUTO) 3.2 % (20.0-44.0); MEAN CORPUSCULAR HGB CONC 33 g/dl (31.0-36.0); MEAN CORPUSCULAR VOLUME 90 fL (80-96); MONOCYTES # (AUTO) 0.1 /CMM (0.1-1.30); MONOCYTES % (AUTO) 0.2 % (2.0-12.0); NEUTROPHILS # (AUTO) 22.2 /CMM (1.8-8.9); NEUTROPHILS % (AUTO) 96.3 % (43.0-81.0); PLATELET COUNT (AUTO) 123 /CMM (150-450); RED BLOOD CELL COUNT(AUTO) 3.74 MIL/uL (4.5-6.0); WHITE BLOOD COUNT (AUTO) 23.1 K/uL (4.3-11.0)
[2019-11-26 04:37] LABS: CALCIUM, SERUM 8.3 mg/dL (8.5-10.1); CREATININE 0.8 mg/dL (0.6-1.3); MAGNESIUM 2.2 mg/dL (1.8-2.4); POTASSIUM 4.2 mmol/L (3.5-5.1)
[2019-11-26] MEDS: MEROPENEM 500 MG in IV NS 0.9% 50 ML IV SCH (05:35)
--- NOTE | 2019-11-26 06:57 | NUR ---
MATERIAL DAMAGE ADJUSTER NOTE PATIENT IS IN BED RESTING. ALL NEEDS ATTENDED AND MET. ALL DUE MEDS GIVEN AND TOLERATED WELL. PATIENT IS KEPT CLEAN, DRY, AND COMFORTABLE. WILL ENDORSE TO AM SHIFT RN FOR CONTINUATION OF CARE.
[2019-11-26] MEDS: ALBUTEROL SULFATE INH 18 GM HFA.AER.AD IH SCH ×4 (07:32→23:12)
[2019-11-26] MEDS: ACETYLCYSTEINE 10% SOLN 400 MG/4 ML VIAL NEB SCH ×3 (07:34→23:10)
[2019-11-26] MEDS: HYDROCORTISONE SOD SUCCINATE 100 MG/2 ML VIAL IV SCH ×2 (08:50→16:28)
[2019-11-26] MEDS: PANTOPRAZOLE 40 MG/PACK PACK NG SCH (08:50)
[2019-11-26] MEDS: Z GUARD REMEDY 2 OZ OINT TP SCH (08:52)
[2019-11-26 08:53] LABS: ABG BASE EXCESS 7.4 mmol/L; ABG OXYGEN SATURATION 96.6 % (92.0-98.5); ABG PCO2 58.5 mmHg (35.0-45.0); ABG PH 7.382 (7.350-7.450); ABG PO2 94.6 mmHg (75.0-100.0); AaDO2 123.3 mmHg; COHb 0.2 % (0.5-1.5); MetHb 0.6 % (0.0-1.5); O2Hb 95.8 % (94.0-97.0); SITE, ABG Left Radial; VENT MODE, BG ST 15/5 BUR 12
[2019-11-26] MEDS: MUPIROCIN OINT 2% 22 GM TUBE SCH ×2 (08:53→16:28)
[2019-11-26] MEDS: NITROGLYCERIN 30 GM TUBE TP SCH ×2 (08:53→21:00)
[2019-11-26] MEDS: ACETAMINOPHEN 650 MG/20.3 ML UDC NG PRN ×2 (10:12→16:35)
--- NOTE | 2019-11-26 11:22 | NUR ---
RN NOTE 0715: Received patient awake. Alert to name. On Bipap. Afib on the monitor. Right NGT intact, with gurgling sound during auscultation, feeding tolerated. Kept HOB elevated. With Hearn cath itnact, noted with very minimal UOP. AUDIO ENGINEER restraints for safety. On contact iso for MRSA nares, maintained and observed. 0900: S/E by Dr. Menodza, aware for ABG. With order to try on simple massk. 0915: Placed on simple mask 96% sat but patient noted with AFib uncontrolled to 140's and increased WOB. Placed back Bipap, made MD aware. 1120: No any significant changes noted at this time. Kept clean, warm and dry. Needs attended. Remained on Bipap.
[2019-11-26] MEDS: JEVITY 1.2 CAL 1,000 ML BOTTLE NG PRN (13:04)
[2019-11-26] MEDS: MEROPENEM 1 G in IV NS 0.9% 100 ML IV SCH ×2 (13:05→21:20)
[2019-11-26] MEDS: DOCUSATE SODIUM LIQ 100 MG/10 ML UDC NG SCH (18:39)
--- NOTE | 2019-11-26 18:45 | NUR ---
RN NOTE Remained on Bipap. No any significant changes noted at this time. Kept clean, warm and dry. Needs attended.
--- NOTE | 2019-11-26 19:00 | NUR ---
RECEIVED PATIENT N BIPAP( 07/01, RATE=12,FIO2=40%), BREATHING REGULAR,BUT DEEP AND LABORED ,SATURATING IN THE 90'S SO FAR,WILL CLOSELY MONITOR ALL NIGHT. LETHARGIC,OPENS EYES TO TACTILE AND VERBAL STIMULI,BUT DOES NOT SEEM TO COMPREHEND WELL,(DOES NOT SPEAK SUDANESE), BUT VERY WEAKLY ,BARELY MOVING ALL EXTREMITIES.+ GENERALIZED EDEMA, WEEPING ON BOTH UPPER EXTREMITIES. ON TUBE FEEDING VIA NGT, NOTED A LOT OF FEEDING RESIDUAL (>500 ML), FEEDING HELD FOR NOW, WILL RECHECK RESIDUALS. ASPIRATION PRECAUTION IMPLEMENTED.
[2019-11-27] VITALS (29 sets, daily range): BP systolic 73–139; BP diastolic 30–77
--- NOTE | 2019-11-27 | NUR ---
FEEDING RESIDUAL STILL HIGH 500 ML, CONTINUE TO HOLD FEEDING.
--- NOTE | 2019-11-27 | NUR ---
REMAINS STABLE, NOTED MILD SOB ON EXERTION.FEVER RELIEVED. WILL CONTINUE TO MONITOR OXYGENATION . Addendum: 11/27/19 at 0247 by OPAL GREEN RN PLEASE DISREGARD ABOVE NOTE, WRONG PATIENT.
--- NOTE | 2019-11-27 | NUR ---
REMAINS LETHARGIC ON BIPAP, TOLERATING FIO2 OF 40%,STILL WITH LABORED BREATHING BUT NOT IN ANY ACUTE RESPIRATORY DISTRESS.RESPONSIVE TO PAIN AND VERBAL STIMULUS,BUT NOT FOLLOWING COMMANDS.
--- NOTE | 2019-11-27 02:00 | NUR ---
BREATHING LESS LABORED,CALM ,AND SEEMS MORE RESPONSIVE ,EASIER TO AWAKEN.STILL WITH HIGH FEEDING RESIDUAL
--- NOTE | 2019-11-27 04:00 | NUR ---
STILL WITH A LOT OF FEEDING RESIDUALS,FEEDING STILL ON HOLD. VOMITED BROWNISH GASTRIC MATERIALS WHILE TURNING SIDE TO SIDE DURING AM CARE, ASPIRATION PRECAUTION OBSERVED. CONNECTED NGT TO SUCTION ,OBTAINED 500 ML BROWNISH GASTRIC MATERIALS. CONTINUE TO HOLD TUBE FEEDING AND FOLLOW UP WITH MD IF WANTS TO CONTINUE WITH FEEDING.
--- NOTE | 2019-11-27 05:00 | NUR ---
PATIENT LOOKS MORE COMFORTABLE,MORE AWAKE AND MORE RESPONSIVE.
[2019-11-27] MEDS: MEROPENEM 1 G in IV NS 0.9% 100 ML IV SCH ×3 (05:13→20:36)
[2019-11-27] MEDS: ALBUTEROL SULFATE INH 18 GM HFA.AER.AD IH SCH ×4 (05:40→23:30)
--- NOTE | 2019-11-27 06:00 | NUR ---
WILL ATTEMPT TO FEED AGAIN,RESUMED AT 30 ML /HR THEN CHECK RESIDUALS. REPORT GIVEN TO SHIMON RAE
[2019-11-27] MEDS: ACETYLCYSTEINE 10% SOLN 400 MG/4 ML VIAL NEB SCH ×3 (07:35→23:29)
[2019-11-27 07:46] LABS: HEMATOCRIT 31 % (39-51); HEMOGLOBIN 9.7 g/dL (13.5-17.5); LYMPHOCYTES # (AUTO) 0.6 /CMM (0.8-4.8); MEAN CORPUSCULAR HGB CONC 31 g/dl (31.0-36.0); MEAN CORPUSCULAR VOLUME 91 fL (80-96); MONOCYTES # (AUTO) 0.6 /CMM (0.1-1.30); MONOCYTES % (AUTO) 2.1 % (2.0-12.0); NEUTROPHILS # (AUTO) 27.5 /CMM (1.8-8.9); NEUTROPHILS % (AUTO) 95.9 % (43.0-81.0); PLATELET COUNT (AUTO) 80 /CMM (150-450); RED BLOOD CELL COUNT(AUTO) 3.42 MIL/uL (4.5-6.0); WHITE BLOOD COUNT (AUTO) 28.7 K/uL (4.3-11.0)
[2019-11-27 07:51] LABS: CALCIUM, SERUM 8.5 mg/dL (8.5-10.1); CARBON DIOXIDE 35 mmol/L (21-32); CHLORIDE 116 mmol/L (98-107); CREATININE 1.5 mg/dL (0.6-1.3); GLUCOSE 107 mg/dL (74-106); MAGNESIUM 2.6 mg/dL (1.8-2.4); POTASSIUM 4.2 mmol/L (3.5-5.1); SODIUM SERUM 153 mmol/L (136-145); UREA NITROGEN, BLOOD 38 mg/dL (7-18)
[2019-11-27 08:27] LABS: BAND % (MANUAL) 18 % (0.0-5.0); EOSINOPHILS % (MANUAL) 1 % (0-4); LYMPHOCYTES % (MANUAL) 1 % (16-48); MONOCYTES % (MANUAL) 4 % (0-11.0); MYELOCYTES % 1 % (0-0); NEUTROPHILS % (MANUAL) 75 (42-76)
[2019-11-27] MEDS: Z GUARD REMEDY 2 OZ OINT TP SCH (08:53)
[2019-11-27] MEDS: HYDROCORTISONE SOD SUCCINATE 100 MG/2 ML VIAL IV SCH ×2 (08:53→17:07)
[2019-11-27] MEDS: PANTOPRAZOLE 40 MG/PACK PACK NG SCH (08:53)
[2019-11-27] MEDS: MUPIROCIN OINT 2% 22 GM TUBE SCH ×2 (08:53→17:07)
[2019-11-27] MEDS: NITROGLYCERIN 30 GM TUBE TP SCH (08:55)
[2019-11-27] MEDS ORDERED: ACETAMINOPHEN 650 MG/20.3 ML UDC NG PRN (10:30)
[2019-11-27 10:35] LABS: ABG BASE EXCESS 5.8 mmol/L; ABG OXYGEN SATURATION 96.2 % (92.0-98.5); ABG PCO2 74.6 mmHg (35.0-45.0); ABG PH 7.282 (7.350-7.450); ABG PO2 91.7 mmHg (75.0-100.0); AaDO2 180.9 mmHg; COHb 0.8 % (0.5-1.5); MetHb 0.6 % (0.0-1.5); O2Hb 94.9 % (94.0-97.0); SITE, ABG Left Radial; VENT MODE, BG venti mask 40% 15l
[2019-11-27] MEDS: METOCLOPRAMIDE HCL 10 MG/10 ML UDC PO SCH ×3 (12:28→23:33)
[2019-11-27] MEDS ORDERED: AMIODARONE 450 MG in IV D5W 241 ML IV PRN (12:30)
[2019-11-27] MEDS ORDERED: AMIODARONE 150 MG in IV D5W 100 ML IV ONE (12:30)
[2019-11-27 14:45] LABS: APPEARANCE,URINE CLOUDY (CLEAR); BILIRUBIN,URINE MODERATE (NEGATIVE); BLOOD, URINE MODERATE Ery/uL (NEGATIVE); KETONES,URINE 15 (NEGATIVE); LEUKOCYTE ESTERASE ,URINE TRACE (NEGATIVE); NITRITE, URINE POSITIVE (NEGATIVE); PROTEIN,URINE 100 mg/dl (NEGATIVE); UGLUCOSE NEGATIVE (NEGATIVE)
[2019-11-27 15:06] LABS: COLOR,URINE OTHER (YELLOW)
[2019-11-27 15:26] LABS: BACTERIA,URINE 2+ /HPF (None Seen); SQUAMOUS EPITHELIAL CELL,UR 0-2 /HPF (None Seen); YEAST,URINE Moderate /HPF (None Seen)
[2019-11-27 15:40] LABS: EOSINOPHIL,URINE None Seen
--- NOTE | 2019-11-27 15:43 | NUR ---
RN NOTE 0715: received patient on Bipap. Alert to name. With right NGT intact, noted with gt residuals, 200mL, paused feeding for now. DEION midline intact. With Sloan cath intact, noted with very minimal UOP. 0845: S/E by Dr. Mendoza, with order to do ABG off Bipap, RT paced patient on venturi mask. 1045: ABG resulted, MD ordered to place back on Bipap. 1130: Patient noted with Afib RVR up to 170's, made Dr. Smith aware and also informed MD, patient was placed off Bipap and just placed back on, Cardio ordered for Amio load and drip. Carried out. 1500: Still low UOP, 40mL since AM, flushed sloan but still no output. Mad Dr. Chang aware. BU/Cr 38/1.5, no new order for now. Stopped Amio drip for episode of 40's HR. Will continue to monitor. MD also aware for episodes of SBP 80's at times. 1530: Cleaned patient, noted with x1 vomiting, and small amount of dark red BM, made Dr. Saleh aware. H/H 9.7. GTF still on pause. Kept HOB elevated.
[2019-11-27 17:49] LABS: CREATININE, URINE 170.9 MG/DL (30.0-125.0)
--- NOTE | 2019-11-27 20:00 | NUR ---
SENIOR CLINICAL DATA MANAGER NOTE RECEIVED PT ON BIPAP, LETHARGIC AND WITHDRAWING FROM PAIN. BREATHING UNLABORED AND TOLERATING BIPAP SETTINGS. ON ASPIRATION PRECAUTIONS. TELE- SR AND AFIB CONTROLLED. ISOLATION PRECAUTIONS MAINTAINED. NGT IN PLACE WITH POSITIVE PLACEMENT AND HIGH RESIDUALS [id number] NOTED. HYDE CATHETER IN PLACE AND DRAINING BY GRAVITY. WILL MONITOR.
--- NOTE | 2019-11-27 20:08 | NUR ---
RCVD PT ON BIPAP 15/, RATE 12, 40%. BREATHING TX GIVEN PER MD'S ORDER . NO ADVERSE REACTION NOTED. NO RESPIRATORY DISTRESS NOTED AT THIS TIME . WILL CONTINUE TO MONITOR THE PT T/O THE SHIFT.
[2019-11-27] MEDS: DOCUSATE SODIUM LIQ 100 MG/10 ML UDC NG SCH (21:19)
[2019-11-27] MEDS ORDERED: NOREPINEPHRINE 4 MG/4 ML AMPUL IV ONE (22:35)
--- NOTE | 2019-11-27 22:36 | NUR ---
WELD ENGINEER NOTE PT SBP 60-70'S. NOTIFIED MICRO LAB ANALYST WITH ORDERS TO START LEVOPHED DRIP AND KEEP MAP >65. ORDERS NOTED AND CARRIED OUT. WILL MONITOR.
[2019-11-27] MEDS: NOREPINEPHRINE 32 MG in IV NS 0.9% 218 ML IV PRN (22:47)
[2019-11-28] VITALS (61 sets, daily range): BP systolic 73–156; BP diastolic 27–127
[2019-11-28] MEDS: MEROPENEM 1 G in IV NS 0.9% 100 ML IV SCH (04:21)
[2019-11-28] MEDS: ALBUTEROL SULFATE INH 18 GM HFA.AER.AD IH SCH ×3 (05:29→17:01)
[2019-11-28] MEDS: METOCLOPRAMIDE HCL 10 MG/10 ML UDC PO SCH ×4 (05:56→23:45)
--- NOTE | 2019-11-28 07:15 | NUR ---
IMPLEMENTATION ENGINEER NOTES PATIENT IN BED OBTUNDED, ON BIPAP SATURATING 95%. CALM NO FACIAL GRIMACING. NO SOB OR DISCOMFORT NOTED AT THIS TIME. NG TUBE SITE RESIDUAL 100 CC GREEN COLOR. PATIENT FEEDING IS STOPPED FROM PREVIOUS SHIFT. PT HAS PATENT MIDLINE. ON TKO AND LEVOPHED 0.3. PATIENT ON HYDE. CALL LIGHT WITHIN REACH BED AT THE LOWEST POSITION LOCKED. WILL CONTINUE TO MONITOR THE PATIENT.
[2019-11-28] MEDS: ACETYLCYSTEINE 10% SOLN 400 MG/4 ML VIAL NEB SCH ×3 (07:37→23:56)
[2019-11-28 07:40] LABS: BASOPHILS % (AUTO) 0.1 % (0.0-2.0); HEMATOCRIT 36 % (39-51); HEMOGLOBIN 11.1 g/dL (13.5-17.5); LYMPHOCYTES # (AUTO) 0.6 /CMM (0.8-4.8); MEAN CORPUSCULAR HGB CONC 31 g/dl (31.0-36.0); MEAN CORPUSCULAR VOLUME 91 fL (80-96); MONOCYTES # (AUTO) 0.1 /CMM (0.1-1.30); MONOCYTES % (AUTO) 0.5 % (2.0-12.0); NEUTROPHILS # (AUTO) 27.9 /CMM (1.8-8.9); NEUTROPHILS % (AUTO) 97.4 % (43.0-81.0); PLATELET COUNT (AUTO) 101 /CMM (150-450); RED BLOOD CELL COUNT(AUTO) 3.94 MIL/uL (4.5-6.0); WHITE BLOOD COUNT (AUTO) 28.6 K/uL (4.3-11.0)
[2019-11-28 07:56] LABS: ALANINE AMINOTRANSFERASE 30 U/L (12-78); ALKALINE PHOSPHATASE 189 U/L (46-116); ASPARTATE AMINOTRANSFERASE 61 U/L (15-37); BILIRUBIN,TOTAL 0.7 mg/dL (0.2-1.0); CALCIUM, SERUM 9.1 mg/dL (8.5-10.1); CARBON DIOXIDE 32 mmol/L (21-32); CHLORIDE 113 mmol/L (98-107); GLUCOSE 65 mg/dL (74-106); MAGNESIUM 2.8 mg/dL (1.8-2.4); PHOSPHORUS 4.2 mg/dL (2.5-4.9); POTASSIUM 5.9 mmol/L (3.5-5.1); SODIUM SERUM 150 mmol/L (136-145); TOTAL PROTEIN, SERUM 5.5 g/dL (6.4-8.2); UREA NITROGEN, BLOOD 50 mg/dL (7-18)
[2019-11-28 07:59] LABS: CREATINE KINASE, TOTAL 102 U/L (39-308)
--- NOTE | 2019-11-28 08:23 | NUR ---
ACUTE CARE REGISTERED NURSE NOTES XRAY PHILOSOPHY INSTRUCTOR AT BED SIDE.
[2019-11-28] MEDS: HYDROCORTISONE SOD SUCCINATE 100 MG/2 ML VIAL IV SCH ×2 (08:34→17:00)
[2019-11-28] MEDS: PANTOPRAZOLE 40 MG/PACK PACK NG SCH (08:34)
[2019-11-28] MEDS: DIGOXIN INJ 0.5 MG/2 ML AMPUL IV SCH ×3 (08:36→21:01)
[2019-11-28] MEDS: Z GUARD REMEDY 2 OZ OINT TP SCH (08:37)
[2019-11-28] MEDS: MUPIROCIN OINT 2% 22 GM TUBE SCH ×2 (09:00→17:00)
--- NOTE | 2019-11-28 09:02 | NUR ---
SALES SPECIAL AGENT NOTES BACTROBAN NOT AVAILABLE AT THIS TIME CALLED PHARMACY FOR DELIVERY.
--- NOTE | 2019-11-28 10:05 | NUR ---
LIFE SKILLS TEACHER NOTES BACTROBAN NOT AVAILABLE INFORMED PHARMACY. PT IS ON CONTINUOUS BIPAP.
[2019-11-28] MEDS ORDERED: SODIUM POLYSTYRENE SULFONATE 15 G/60 ML BOTTLE PO ONE (10:30)
--- NOTE | 2019-11-28 11:08 | NUR ---
AUTO BODY REPAIRER NOTES BP 149/86 HR134 TITRATED THE LEVOPHED TO 0.2MCG.
--- NOTE | 2019-11-28 11:10 | NUR ---
UTILITY SUPERVISOR BOAT AND PLANT NOTES INFORMED CLIENT PROGRAM MANAGER SILVIO ABOUT THE LAB RESULTS. PATIENT OUTPUT AND PATIENT OFF FOR TUBE FEEDING. CLIENT PROGRAM MANAGER AWARE.
--- NOTE | 2019-11-28 19:17 | NUR ---
TUBE MOLDER FIBERGLASS NOTES CLOSING PATIENT IN BED LETHARGIC ON BIPAP, SATURATING 94% HR 109. COMFORTABLE IN BED. NO SOB OR PAIN NOTED AT THIS TIME. OUT PUT 50 CC TOTAL. ALL NEEDS ATTENDED. BED AT THE LOWEST POSITION LOCKED. STILL NPO EXCEPT MEDS, WITH RESIDUAL > 100 CC , GREEN GASTRIC CONTENT. ENDORSED TO EAR SPECIALIST NURSE FOR KARIN.
--- NOTE | 2019-11-28 19:21 | NUR ---
SHIRRER. INITIAL ASSESSMENT. RECEIVED THE PT REST ON THE BED, BIPAP ON. PT IS NOT RESPONDING PAIN. PT IS OBTUNDED. BIPAP SETTINGS 15/5,RATE IS 12,FIO2 45,%. SAT 97%. DECKHAND OYSTER DREDGE SHOWING AFIB. RATE IS 120. GT INTACT. CLAMPED. FC PATENT. ANURIC, HOB ELEVATED. PT IS UNSTABLE. SILVIANO HAND WEEPING, PT IS UNSTABLE, WILL CONTINUE TO MONITOR VITALS.
[2019-11-28] MEDS: MICAFUNGIN SODIUM 100 MG in IV NS 0.9% 100 ML IV SCH (20:59)
[2019-11-28] MEDS: DOCUSATE SODIUM LIQ 100 MG/10 ML UDC NG SCH (21:01)
[2019-11-28] MEDS ORDERED: IV NS 0.9% 1,000 ML BAG IV SCH (22:30)
[2019-11-28] MEDS ORDERED: IV NS 0.9% 1,000 ML IV PRN (22:30)
[2019-11-29] VITALS (82 sets, daily range): BP systolic 66–147; BP diastolic 32–103
[2019-11-29] MEDS: NOREPINEPHRINE 32 MG in IV NS 0.9% 218 ML IV PRN (04:06)
[2019-11-29 04:32] LABS: BASOPHILS % (AUTO) 0.1 % (0.0-2.0); EOSINOPHILS % (AUTO) 0.1 % (0.0-6.0); HEMATOCRIT 33 % (39-51); HEMOGLOBIN 10.1 g/dL (13.5-17.5); LYMPHOCYTES # (AUTO) 0.6 /CMM (0.8-4.8); LYMPHOCYTES % (AUTO) 3.5 % (20.0-44.0); MEAN CORPUSCULAR HGB CONC 31 g/dl (31.0-36.0); MEAN CORPUSCULAR VOLUME 93 fL (80-96); MONOCYTES # (AUTO) 0.4 /CMM (0.1-1.30); MONOCYTES % (AUTO) 2.4 % (2.0-12.0); NEUTROPHILS # (AUTO) 15.9 /CMM (1.8-8.9); NEUTROPHILS % (AUTO) 93.9 % (43.0-81.0); PLATELET COUNT (AUTO) 90 /CMM (150-450); RED BLOOD CELL COUNT(AUTO) 3.58 MIL/uL (4.5-6.0); WHITE BLOOD COUNT (AUTO) 16.9 K/uL (4.3-11.0)
[2019-11-29 04:42] LABS: CALCIUM, SERUM 8.9 mg/dL (8.5-10.1); CARBON DIOXIDE 33 mmol/L (21-32); CHLORIDE 115 mmol/L (98-107); CREATININE 2.7 mg/dL (0.6-1.3); GLUCOSE 112 mg/dL (74-106); MAGNESIUM 2.8 mg/dL (1.8-2.4); PHOSPHORUS 5.8 mg/dL (2.5-4.9); SODIUM SERUM 152 mmol/L (136-145); UREA NITROGEN, BLOOD 64 mg/dL (7-18)
[2019-11-29 04:49] LABS: BAND % (MANUAL) 3 % (0.0-5.0); EOSINOPHILS % (MANUAL) 1 % (0-4); LYMPHOCYTES % (MANUAL) 8 % (16-48); MONOCYTES % (MANUAL) 1 % (0-11.0); NEUTROPHILS % (MANUAL) 87 (42-76)
[2019-11-29] MEDS: ALBUTEROL SULFATE INH 18 GM HFA.AER.AD IH SCH ×4 (05:39→17:27)
[2019-11-29] MEDS: METOCLOPRAMIDE HCL 10 MG/10 ML UDC PO SCH ×3 (05:51→17:26)
--- NOTE | 2019-11-29 05:52 | NUR ---
agricultural loan officer. 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 wound consultation ordered.
--- NOTE | 2019-11-29 06:35 | NUR ---
curriculum development coordinator. pt heart rate went on and off 160. this morning 0630. then went down 109, will continue to monitor vitals.
--- NOTE | 2019-11-29 06:37 | NUR ---
supervisor agricultural education. ngt low intermittent suction. this am out put 500ml dark greenesh color.
--- NOTE | 2019-11-29 07:00 | NUR ---
RN NOTES RECEIVED PT ON BED, DOES NOT FOLLOW COMMAND, RESPONDS TO PAINFUL STIMULI, ON BIPAP, O2 SAT 100%, INITIAL ASSESSMENT. RECEIVED THE PT REST ON THE BED, BIPAP ON. PT IS NOT RESPONDING PAIN. POLYMERIZATION ENGINEER SHOWING A.FIB. HR IN `100'S, NGT TO LIS WITH DARK GREENISH STOMACH DRAINAGE , HYDE DRAINING TO GRAVITY, WITH SMALL AMOUNT OF DARK RICHELLE COLOR URINE , HOB ELEVATED. SILVIANO HANDS WEEPING, ELEVATED ON PILLOWS , WILL CONTINUE TO MONITOR PT CLOSELY.
[2019-11-29] MEDS: ACETYLCYSTEINE 10% SOLN 400 MG/4 ML VIAL NEB SCH ×2 (07:50→15:20)
[2019-11-29] MEDS: IV NS 0.9% 1,000 ML IV PRN ×2 (07:52→13:20)
[2019-11-29] MEDS: PANTOPRAZOLE 40 MG/PACK PACK NG SCH (08:11)
[2019-11-29] MEDS: HYDROCORTISONE SOD SUCCINATE 100 MG/2 ML VIAL IV SCH ×2 (08:11→17:25)
[2019-11-29] MEDS: Z GUARD REMEDY 2 OZ OINT TP SCH (08:12)
[2019-11-29] MEDS: MUPIROCIN OINT 2% 22 GM TUBE SCH ×2 (08:12→17:27)
[2019-11-29] MEDS ORDERED: SODIUM POLYSTYRENE SULF. PWD 15 GM UDC PO ONE (09:00)
[2019-11-29] MEDS ORDERED: BUMETANIDE INJ 6 MG in IV NS 0.9% 36 ML IV ONE (09:00)
--- NOTE | 2019-11-29 09:21 | NUR ---
RN NOTES EKG DONE, DR. TI ELDER .
--- NOTE | 2019-11-29 13:00 | NUR ---
RN NOTES PT STABLE, ONE SMALL BM NOTED FROM [place], CONTINUE TO MONITOR
--- NOTE | 2019-11-29 15:30 | NUR ---
RN NOTES LAB NOTIFED REGARDING 1400, BMP THAT HAS NOT BEEN DRAWN YET .
[2019-11-29] MEDS ORDERED: NOREPINEPHRINE 8 MG in IV NS 0.9% 242 ML IV PRN (17:00)
--- NOTE | 2019-11-29 17:00 | NUR ---
RN NOTES LAB NOITFED AGAIN , REGARDING BMP THAT HAS NOT BEEN DONE YES
--- NOTE | 2019-11-29 18:00 | NUR ---
RN NOTES PHARMACY NOITFED REGARDING , A NEED FOR A NEW BAG OF LEVO GTT TWICE , NO NEW BAG AVAILABLE YET ,
--- NOTE | 2019-11-29 18:00 | NUR ---
RN NOTES PT STILL ON BIPAP, RESPONDS TO DEEP PAIN FULL STIMULI ONLY, O2 SAT 99% , LEVO AT .1 MCG/KG/MIN AND IVF NS AT 200CC/HR RUNNING VIA L UPPER ARM MIDLINE, NGT TO LIS, TOLAL OF 850 CC DARK GREENISH GASTRIC DRAINAGE OBTAIN ON THIS SHIFT, SR UP x3, CALL LIGHT WITHIN EASY REACH, BED LOCKED AND IN LOWEST POSITION, WILL ENDORSE TO GALVANIZER ZINC NURSE FOR CONTINUITY OF CARE .
[2019-11-29] MEDS: MICAFUNGIN SODIUM 100 MG in IV NS 0.9% 100 ML IV SCH (18:01)
[2019-11-29 18:16] LABS: CALCIUM, SERUM 8.9 mg/dL (8.5-10.1); CARBON DIOXIDE 33 mmol/L (21-32); CREATININE 2.9 mg/dL (0.6-1.3); GLUCOSE 110 mg/dL (74-106); UREA NITROGEN, BLOOD 69 mg/dL (7-18)
[2019-11-29 18:24] LABS: CHLORIDE 115 mmol/L (98-107); SODIUM SERUM 151 mmol/L (136-145)
[2019-11-29 18:41] LABS: POTASSIUM 6.5 mmol/L (3.5-5.1)
--- NOTE | 2019-11-29 18:49 | NUR ---
RN NOTES DR LUKE NOTIFED REGARDING K=6.5 AND URINE OUTPUT 80 CC FOR LAST 12 HOURS ON THIS SHIFT, NO NEW ORDER RECEIVED.
--- NOTE | 2019-11-29 19:30 | NUR ---
FIRE ALARM INSPECTOR NOTES RECEIVED PATIENT ON BED, SLEEPING, RESPONDS TO PAINFUL STIMULI, ON BIPAP, O2 SAT 98%, INITIAL ASSESSMENT DONE. TRANSITION OF CARE SPECIALIST SHOWING A.FIB. HR IN `100'S, NGT TO LIS WITH DARK GREENISH STOMACH DRAINAGE , HYDE DRAINING TO GRAVITY, WITH SMALL AMOUNT OF DARK RICHELLE COLOR URINE , HOB ELEVATED. EDEMA +3 PITTING ON ALL UPPER AND LOWER EXTREMITIES. ELEVATED ON PILLOWS , WILL CONTINUE TO MONITOR PATIENT CLOSELY.
[2019-11-29] MEDS ORDERED: PIPERACILLIN /TAZOBACTAM 2.25 G in IV D5W 50 ML IV ONE (20:00)
--- NOTE | 2019-11-29 21:20 | NUR ---
CODING COMPLIANCE AUDITOR NOTES CHARGE NURSE CONTACTED PATIENTS FAMILY MEMBER AND THEY DECIDED TO CONTINUE COMFORT FOR THE PATIENT. DR LUKE AND DR VARGAS NOTIFIED. Addendum: 11/30/19 at 0531 by DINORA CHATMAN RN MEANT TO SAY "START COMFORT CARE" PATIENT WAS DNR/DNI.
--- NOTE | 2019-11-29 21:37 | NUR ---
ALL MEDICATIONS DISCONTINUED AND COMFORT CARE STARTED, MORPHINE AND ATIVAN WAS ORDERED, WILL CONTINUE TO MONITOR THE PATIENT CLOSELY.
--- NOTE | 2019-11-29 21:42 | NUR ---
PT TAKEN OFF BIPAP AND PLACED ON 5L SM.
[2019-11-29] MEDS: MORPHINE SULFATE INJ 4 MG/ML DISP.SYRIN IV PRN ×2 (21:59→22:59)
[2019-11-29] MEDS: LORAZEPAM INJ 2 MG/ML VIAL IV PRN ×2 (22:35→23:35)
--- NOTE | 2019-11-29 23:45 | NUR ---
BAR PILOT PT WAS ON COMFORT MEASURES ONLY. PT WAS COMATOSE, NONRESPONSIVE TO ANY STIMULI. PT WENT TO SEVERE BRADYCARDIA & FINALLY TO ASYSTOLE. NO HEART BEATS OR PULSES ON MAJOR ARTERIES. NO BREATH SOUNDS. PUPILS ARE FIXED & DILATED, NO CORNEAL OR GAG REFLEXES. EKG-STRAIGHT LINE. PT WAS PRONOUNCED @ 23.400. 11.29.2019 BY ICU RESIDENTIAL TREATMENT COUNSELOR KOBE COUGHLIN.
--- NOTE | 2019-11-29 23:50 | NUR ---
PATIENT WAS BRADYCARDIA AND BP AND O2 WAS LOW AND FINALLY ASYSTOLE @ 2340. NURSING REGIONAL LOSS PREVENTION MANAGER HORACE NGUYEN, WAS NOTIFIED AT 2345, ADMITTING, IRENE WAS NOTIFIED AT 2345, FAMILY MEMBER LUIS FREED WAS NOTIFIED AT 2345 (FAMILY PHONE NUMBER, ). FIDEL WAS CALLED AND TALKED TO [facility], . PATIENT WAS CLEANED AND READY TO RETRANSFER WITH THE HELP OF CHARGE NURSE KOBE COUGHLIN.
[2019-11-30] MEDS ORDERED: PIPERACILLIN /TAZOBACTAM 3.375 G in IV D5W 100 ML IV SCH (01:00)
[2019-11-30 10:15] LABS: *SPE A/G RATIO 0.4 (0.7-1.7); *SPE ALBUMIN 1.3 g/dL (2.9-4.4); *SPE ALPHA-1-GLOBULIN 0.4 g/dL (0.0-0.4); *SPE ALPHA-2-GLOBULIN 1.1 g/dL (0.4-1.0); *SPE BETA GLOBULIN 0.6 g/dL (0.7-1.3); *SPE GLOBULIN, TOTAL 3.6 g/dL (2.2-3.9); *SPE M-SPIKE 0.4 g/dL (Not Observed); *SPEGAMMA GLOBULIN 1.6 g/dL (0.4-1.8)
== END 2019-11-29 23:40 | disposition expired | DRG 871 ==
LOC: ER 23:12 → ICU 11-17 01:06
PROVIDERS: ADMIT Legal Medicine; ATTEND Nurse Practitioner Acute Care
PROC: 5A1945Z Respiratory Ventilation, 24-96 Consecutive Hours (ICD-10-PCS; principal; 2019-11-17)
PROC: 0BH17EZ Insertion of Endotracheal Airway into Trachea, Via Natural or Artificial Opening (ICD-10-PCS; 2019-11-17)
PROC: 0JHL3XZ Insertion of Tunneled Vascular Access Device into Right Upper Leg Subcutaneous Tissue and Fascia, Percutaneous Approach (ICD-10-PCS; 2019-11-17)
PROC: 06HM33Z Insertion of Infusion Device into Right Femoral Vein, Percutaneous Approach (ICD-10-PCS; 2019-11-17)
PROC: B54BZZA Ultrasonography of Right Lower Extremity Veins, Guidance (ICD-10-PCS; 2019-11-17)
PROC: 30233N1 Transfusion of Nonautologous Red Blood Cells into Peripheral Vein, Percutaneous Approach (ICD-10-PCS; 2019-11-24)
PROC: 05H933Z Insertion of Infusion Device into Right Brachial Vein, Percutaneous Approach (ICD-10-PCS; 2019-11-24)
PROC: 5A09557 Assistance with Respiratory Ventilation, Greater than 96 Consecutive Hours, Continuous Positive Airway Pressure (ICD-10-PCS; 2019-11-25)
DX: A41.9 Sepsis, unspecified organism (principal); J96.01 Acute respiratory failure with hypoxia; E43 Unspecified severe protein-calorie malnutrition; G93.41 Metabolic encephalopathy; J18.9 Pneumonia, unspecified organism; R65.21 Severe sepsis with septic shock; J96.21 Acute and chronic respiratory failure with hypoxia; J96.22 Acute and chronic respiratory failure with hypercapnia; N17.0 Acute kidney failure with tubular necrosis; I21.A1 Myocardial infarction type 2; J44.1 Chronic obstructive pulmonary disease with (acute) exacerbation; E87.0 Hyperosmolality and hypernatremia; E87.2 Acidosis; E27.40 Unspecified adrenocortical insufficiency; J44.0 Chronic obstructive pulmonary disease with (acute) lower respiratory infection; J98.11 Atelectasis; Z66 Do not resuscitate; Z51.5 Encounter for palliative care; G62.9 Polyneuropathy, unspecified; E87.5 Hyperkalemia; F03.90 Unspecified dementia, unspecified severity, without behavioral disturbance, psychotic disturbance, mood disturbance, and anxiety; D69.6 Thrombocytopenia, unspecified; D64.9 Anemia, unspecified; E86.1 Hypovolemia; I11.0 Hypertensive heart disease with heart failure; I50.9 Heart failure, unspecified; Z87.01 Personal history of pneumonia (recurrent); Z79.899 Other long term (current) drug therapy; N40.0 Benign prostatic hyperplasia without lower urinary tract symptoms; K21.9 Gastro-esophageal reflux disease without esophagitis; M19.90 Unspecified osteoarthritis, unspecified site; K59.00 Constipation, unspecified; I48.0 Paroxysmal atrial fibrillation; F09 Unspecified mental disorder due to known physiological condition; N28.1 Cyst of kidney, acquired; I70.0 Atherosclerosis of aorta; Z22.322 Carrier or suspected carrier of Methicillin resistant Staphylococcus aureus
CPT/HCPCS: 31720; 36410; 36415; 36600; 71045-TC; 76770-TC; 80048-TC; 80053-TC; 80076-TC; 80202-TC; 81000-TC; 82533; 82550-TC; 82570-TC; 82803-TC; 82962-TC; 83605-TC; 83735-TC; 83970; 84100-TC; 84155; 84155-TC; 84165; 84300-TC; 84484-TC; 85025-TC; 85730-TC; 86850-TC; 86921-TC; 87040-TC; 87081-TC; 87086-TC; 92526; 92611-TC; 94002-TC; 94003-TC; 94660; 94664; 94760-TC; 94799-TC; 99082-TC; A4216; A4624; C1751; C9113; G0378; J0282; J0330; J1160; J1650; J1720; J1940; J2060; J2185; J2248; J2270; J2370; J2543; J2916; J2920; J3370; J3475; J3480; J3490; J7030; J7050; J7060; J8597; P9016-BL; U0002